=== PATIENT | female | born 1950 | race Caucasian/White ===

== ENCOUNTER → 2020-07-17 | Outpatient (CLI) | payer OTHER ==
[~2020-07-17] MED LIST: AMIT50 PO; DIPATR PO; FLUSAL1005 IH; HYDACE5 PO; OXYC15ER PO; OXYC20ER PO; PROM25 PO; SENNP PO; TRAM50 PO
[2020-07-17 13:19] LABS: BASOPHILS ABSOLUTE AUTO 0.05 K/mm3 (0.00-0.23); BASOPHILS PERCENT AUTO 0 % (0-2); EOSINOPHILS ABSOLUTE AUTO 0.28 K/mm3 (0.00-0.68); EOSINOPHILS PERCENT AUTO 2 % (0-6); Hematocrit 41.7 % (33.0-51.0); Hemoglobin 13.9 g/dL (11.5-16.0); IMMATURE GRAN ABSOLUTE AUTO 0.04 K/mm3 (0.00-0.10); IMMATURE GRAN PERCENT AUTO 0 % (0-1); LYMPHOCYTES ABSOLUTE AUTO 1.39 K/mm3 (0.84-5.20); LYMPHOCYTES PERCENT AUTO 12 % (21-46); MONOCYTES ABSOLUTE AUTO 0.84 K/mm3 (0.16-1.47); MONOCYTES PERCENT AUTO 7 % (4-13); Mean Corpuscular HGB 28.5 pg (26.0-34.0); Mean Corpuscular HGB Conc 33.3 g/dL (31.5-36.5); Mean Corpuscular Volume 86 fL (80-100); NEUTROPHILS ABSOLUTE AUTO 8.97 K/mm3 (1.96-9.15); NEUTROPHILS PERCENT AUTO 78 % (41-73); Platelet Count 194 K/mm3 (150-400); RDW Coefficient Variation 14.1 % (11.7-14.2); RDW Standard Deviation 43.8 fL (35.1-46.3); Red Blood Cell Count 4.87 M/mm3 (3.80-5.20); White Blood Cell Count 11.57 K/mm3 (4.00-11.30)
[2020-07-17 13:29] LABS: Anion Gap 6 mmol/L (6-16); Blood Urea Nitrogen 9 mg/dL (8-24); Bun/Creatinine Ratio 11.1 (12.0-20.0); CO2, Blood 30 mmol/L (21-32); Calcium, Blood 9.2 mg/dL (8.5-10.1); Chloride, Blood 99 mmol/L (98-108); Creatinine, Blood 0.81 mg/dL (0.40-1.00); Glomerular Filtration Rate >60 (60-); Glucose, Blood 102 mg/dL (70-99); Potassium, Blood 4.2 mmol/L (3.5-5.5); Sodium, Blood 135 mmol/L (136-145)
[2020-07-17 13:30] LABS: Troponin I <0.017 ng/mL (0.000-0.040)
== END | disposition home or self-care (01) ==
LOC: LAB EV 13:12 → LAB SHORT 13:12
PROVIDERS: Physician Assistant Surgical
DX: R06.09 Other forms of dyspnea (principal)
CPT/HCPCS: 80048; 83880; 84484; 85025

== ENCOUNTER 2020-11-14 15:56 | Emergency (ER) | payer OTHER, SELFPAY ==
[~2020-11-14] VITALS: Ht 160 cm; Wt 79.4 kg
[2020-11-14] MEDS ORDERED: MORP15ER (16:33)
[2020-11-14 16:41] LABS: BASOPHILS ABSOLUTE AUTO 0.07 K/mm3 (0.00-0.23); BASOPHILS PERCENT AUTO 0 % (0-2); EOSINOPHILS PERCENT AUTO 1 % (0-6); Hematocrit 46.4 % (33.0-51.0); Hemoglobin 14.9 g/dL (11.5-16.0); IMMATURE GRAN ABSOLUTE AUTO 0.09 K/mm3 (0.00-0.10); IMMATURE GRAN PERCENT AUTO 1 % (0-1); LYMPHOCYTES ABSOLUTE AUTO 1.48 K/mm3 (0.84-5.20); LYMPHOCYTES PERCENT AUTO 9 % (21-46); MONOCYTES ABSOLUTE AUTO 0.69 K/mm3 (0.16-1.47); MONOCYTES PERCENT AUTO 4 % (4-13); Mean Corpuscular HGB 27.7 pg (26.0-34.0); Mean Corpuscular HGB Conc 32.1 g/dL (31.5-36.5); Mean Corpuscular Volume 86 fL (80-100); Mean Platelet Volume 11.2 fL (9.1-12.4); NEUTROPHILS ABSOLUTE AUTO 13.71 K/mm3 (1.96-9.15); NEUTROPHILS PERCENT AUTO 85 % (41-73); Platelet Count 224 K/mm3 (150-400); RDW Coefficient Variation 13.4 % (11.7-14.2); RDW Standard Deviation 42.7 fL (35.1-46.3); Red Blood Cell Count 5.37 M/mm3 (3.80-5.20); White Blood Cell Count 16.14 K/mm3 (4.00-11.30)
[2020-11-14 17:07] LABS: Alanine Aminotransfer (ALT/SGP 50 U/L (12-78); Albumin, Blood 3.8 g/dL (3.4-5.0); Albumin/Globulin Ratio 0.9 (0.8-1.8); Alk Phos 143 U/L (50-136); Anion Gap 6 mmol/L (6-16); Aspartate Aminotrans (AST/SGOT 36 U/L (12-37); Bilirubin, Total 0.9 mg/dL (0.1-1.0); Blood Urea Nitrogen 8 mg/dL (8-24); Bun/Creatinine Ratio 11.6 (12.0-20.0); CO2, Blood 29 mmol/L (21-32); Calcium, Blood 9.3 mg/dL (8.5-10.1); Chloride, Blood 101 mmol/L (98-108); Creatinine, Blood 0.69 mg/dL (0.40-1.00); Globulin, Blood 4.3 g/dL (2.2-4.0); Glomerular Filtration Rate >60 (60-); Glucose, Blood 129 mg/dL (70-99); Potassium, Blood 3.9 mmol/L (3.5-5.5); Sodium, Blood 136 mmol/L (136-145); Total Protein, Blood 8.1 g/dL (6.4-8.2); Troponin I <0.015 ng/mL (0.000-0.040)
[2020-11-14] MEDS ORDERED: Zithromax250 MG PO (17:25)
== END 2020-11-14 17:33 | disposition home or self-care (01) ==
LOC: ER 15:56
PROVIDERS: Physician Assistant
DX: B34.9 Viral infection, unspecified (principal); J44.9 Chronic obstructive pulmonary disease, unspecified; Z79.899 Other long term (current) drug therapy; Z20.822 Contact with and (suspected) exposure to COVID-19
CPT/HCPCS: 36415; 71045; 80053; 84484; 85025; 93005; 93010; 94640; 99285-25; A9270

== ENCOUNTER 2022-02-06 16:52 | Emergency (ER) | payer OTHER ==
[~2022-02-06] VITALS: Ht 162.6 cm; Wt 78.9 kg
[~2022-02-06 16:52] MED LIST changes: +MORP15ER; +Zithromax250 MG PO
[2022-02-06 17:48] LABS: BASOPHILS ABSOLUTE AUTO 0.06 K/mm3 (0.00-0.23); BASOPHILS PERCENT AUTO 1 % (0-2); EOSINOPHILS PERCENT AUTO 4 % (0-6); Hematocrit 41.5 % (33.0-51.0); Hemoglobin 13.4 g/dL (11.5-16.0); IMMATURE GRAN ABSOLUTE AUTO 0.04 K/mm3 (0.00-0.10); IMMATURE GRAN PERCENT AUTO 0 % (0-1); LYMPHOCYTES PERCENT AUTO 19 % (21-46); MONOCYTES ABSOLUTE AUTO 0.58 K/mm3 (0.16-1.47); MONOCYTES PERCENT AUTO 6 % (4-13); Mean Corpuscular HGB Conc 32.3 g/dL (31.5-36.5); Mean Corpuscular Volume 87 fL (80-100); Mean Platelet Volume 10.3 fL (9.1-12.4); NEUTROPHILS ABSOLUTE AUTO 6.86 K/mm3 (1.96-9.15); NEUTROPHILS PERCENT AUTO 70 % (41-73); Platelet Count 276 K/mm3 (150-400); RDW Coefficient Variation 13.8 % (11.7-14.2); RDW Standard Deviation 44.2 fL (35.1-46.3); Red Blood Cell Count 4.78 M/mm3 (3.80-5.20); White Blood Cell Count 9.74 K/mm3 (4.00-11.30)
[2022-02-06 18:05] LABS: Alanine Aminotransfer (ALT/SGP 28 U/L (12-78); Albumin, Blood 3.3 g/dL (3.4-5.0); Albumin/Globulin Ratio 0.8 (0.8-1.8); Alk Phos 123 U/L (50-136); Anion Gap 4 mmol/L (6-16); Aspartate Aminotrans (AST/SGOT 22 U/L (12-37); Bilirubin, Total 0.4 mg/dL (0.1-1.0); Blood Urea Nitrogen 9 mg/dL (8-24); Bun/Creatinine Ratio 12.2 (12.0-20.0); CO2, Blood 31 mmol/L (21-32); Calcium, Blood 8.8 mg/dL (8.5-10.1); Chloride, Blood 100 mmol/L (98-108); Creatinine, Blood 0.74 mg/dL (0.40-1.00); Globulin, Blood 4.2 g/dL (2.2-4.0); Glomerular Filtration Rate >60 (60-); Glucose, Blood 137 mg/dL (70-99); Potassium, Blood 4.1 mmol/L (3.5-5.5); Sodium, Blood 135 mmol/L (136-145); Total Protein, Blood 7.5 g/dL (6.4-8.2)
[2022-02-06] MEDS ORDERED: Benadryl Itch28.3 G1 TOP (18:16)
[2022-02-06] MEDS ORDERED: PERM5TC TOP (18:16)
[2022-02-06] MEDS ORDERED: CEPH500 PO (18:17)
== END 2022-02-06 18:37 | disposition home or self-care (01) ==
LOC: ER 16:52
PROVIDERS: Physician Assistant
DX: L30.8 Other specified dermatitis (principal); L03.116 Cellulitis of left lower limb; J44.9 Chronic obstructive pulmonary disease, unspecified; Z79.899 Other long term (current) drug therapy
CPT/HCPCS: 80053; 85025; A9270; J1885

== ENCOUNTER → 2022-04-04 | Outpatient (CLI) | payer OTHER ==
[~2022-04-04] MED LIST changes: +Benadryl Itch28.3 G1 TOP; +CEPH500 PO; +PERM5TC TOP
== END | disposition home or self-care (01) ==
LOC: LAB 15:20 → LAB SHORT 15:20
DX: L03.119 Cellulitis of unspecified part of limb (principal)
CPT/HCPCS: 87070; 87077; 87147; 87186; 87205

== ENCOUNTER 2022-12-22 05:01 | Emergency (ER) | payer OTHER ==
[~2022-12-22] VITALS: Ht 162.6 cm; Wt 74.8 kg
[2022-12-22 05:20] LABS: BASOPHILS ABSOLUTE AUTO 0.05 K/mm3 (0.00-0.23); BASOPHILS PERCENT AUTO 0 % (0-2); EOSINOPHILS ABSOLUTE AUTO 0.01 K/mm3 (0.00-0.68); EOSINOPHILS PERCENT AUTO 0 % (0-6); Hematocrit 43.9 % (33.0-51.0); Hemoglobin 14.2 g/dL (11.5-16.0); IMMATURE GRAN ABSOLUTE AUTO 0.07 K/mm3 (0.00-0.10); IMMATURE GRAN PERCENT AUTO 1 % (0-1); LYMPHOCYTES ABSOLUTE AUTO 1.15 K/mm3 (0.84-5.20); LYMPHOCYTES PERCENT AUTO 8 % (21-46); MONOCYTES ABSOLUTE AUTO 1.32 K/mm3 (0.16-1.47); MONOCYTES PERCENT AUTO 9 % (4-13); Mean Corpuscular HGB 27.2 pg (26.0-34.0); Mean Corpuscular HGB Conc 32.3 g/dL (31.5-36.5); Mean Corpuscular Volume 84 fL (80-100); NEUTROPHILS ABSOLUTE AUTO 12.62 K/mm3 (1.96-9.15); NEUTROPHILS PERCENT AUTO 83 % (41-73); Platelet Count 294 K/mm3 (150-400); RDW Coefficient Variation 14.9 % (11.7-14.2); RDW Standard Deviation 45.2 fL (35.1-46.3); Red Blood Cell Count 5.22 M/mm3 (3.80-5.20); White Blood Cell Count 15.22 K/mm3 (4.00-11.30)
[2022-12-22] MEDS ORDERED: Prinivil10 MG PO (05:26)
[2022-12-22] MEDS ORDERED: MS CONTIN3010 PO (05:26)
[2022-12-22] MEDS ORDERED: Ventolin/Prove6.7 GM (05:27)
[2022-12-22 05:40] LABS: Albumin, Blood 3.3 g/dL (3.4-5.0); Albumin/Globulin Ratio 0.8 (0.8-1.8); Bilirubin, Total 0.6 mg/dL (0.1-1.0); Bun/Creatinine Ratio 23.3 (12.0-20.0); Calcium, Blood 8.9 mg/dL (8.5-10.1); Creatinine, Blood 0.81 mg/dL (0.40-1.00); Globulin, Blood 4.4 g/dL (2.2-4.0); Potassium, Blood 4.4 mmol/L (3.5-5.5); Total Protein, Blood 7.7 g/dL (6.4-8.2)
[2022-12-22] MEDS ORDERED: Prednisone20 MG PO (05:52)
[2022-12-22] MEDS ORDERED: ALBU90OI INH (05:52)
[2022-12-22] MEDS ORDERED: Zithromax250 MG PO (05:52)
[2022-12-22 06:21] LABS: Influenza A, PCR NEGATIVE (NEGATIVE); Influenza B, PCR NEGATIVE (NEGATIVE); Resp Syncytial Virus, PCR NEGATIVE (NEGATIVE); SARS-Cov-2 (COVID-19) PCR, MMC NEGATIVE (NEGATIVE)
== END 2022-12-22 06:52 | disposition home or self-care (01) ==
LOC: ER 05:01
PROVIDERS: Emergency Medicine
DX: J44.1 Chronic obstructive pulmonary disease with (acute) exacerbation (principal); Z79.899 Other long term (current) drug therapy; Z99.81 Dependence on supplemental oxygen
CPT/HCPCS: 0241U; 71045; 80053; 83605; 83880; 84145; 84484; 85025; 93005; 93010; 94640; 94664; A9270; J1885; J2930; J7030

== ENCOUNTER 2023-01-16 10:37 | Inpatient (IN) | payer OTHER ==
[~2023-01-16] VITALS: Ht 162.6 cm; Wt 72.3 kg
[~2023-01-16 10:37] MED LIST changes: +ALBU90OI INH; +MS CONTIN3010 PO; +Prednisone20 MG PO; +Prinivil10 MG PO; +Ventolin/Prove6.7 GM
[2023-01-16 11:55] LABS: BASOPHILS ABSOLUTE AUTO 0.06 K/mm3 (0.00-0.23); BASOPHILS PERCENT AUTO 1 % (0-2); EOSINOPHILS ABSOLUTE AUTO 0.01 K/mm3 (0.00-0.68); EOSINOPHILS PERCENT AUTO 0 % (0-6); Hematocrit 39.5 % (33.0-51.0); Hemoglobin 12.3 g/dL (11.5-16.0); IMMATURE GRAN ABSOLUTE AUTO 0.31 K/mm3 (0.00-0.10); IMMATURE GRAN PERCENT AUTO 3 % (0-1); LYMPHOCYTES ABSOLUTE AUTO 1.27 K/mm3 (0.84-5.20); LYMPHOCYTES PERCENT AUTO 11 % (21-46); MONOCYTES ABSOLUTE AUTO 0.71 K/mm3 (0.16-1.47); MONOCYTES PERCENT AUTO 6 % (4-13); Mean Corpuscular HGB Conc 31.1 g/dL (31.5-36.5); Mean Corpuscular Volume 87 fL (80-100); Mean Platelet Volume 10.6 fL (9.1-12.4); NEUTROPHILS ABSOLUTE AUTO 8.91 K/mm3 (1.96-9.15); NEUTROPHILS PERCENT AUTO 79 % (41-73); Platelet Count 416 K/mm3 (150-400); RDW Coefficient Variation 15.4 % (11.7-14.2); RDW Standard Deviation 49.2 fL (35.1-46.3); Red Blood Cell Count 4.55 M/mm3 (3.80-5.20); White Blood Cell Count 11.27 K/mm3 (4.00-11.30)
[2023-01-16 12:01] LABS: Albumin, Blood 2.6 g/dL (3.4-5.0); Albumin/Globulin Ratio 0.6 (0.8-1.8); Bilirubin, Total 0.7 mg/dL (0.1-1.0); Bun/Creatinine Ratio 6.7 (12.0-20.0); Calcium, Blood 8.2 mg/dL (8.5-10.1); Creatinine, Blood 4.3 mg/dL (0.40-1.00); Globulin, Blood 4.4 g/dL (2.2-4.0); Potassium, Blood 4.4 mmol/L (3.5-5.5)
[2023-01-16 12:20] LABS: Base Excess Venous 1.3 mmol/L; Bicarbonate Venous 23.8 mmol/L (24.0-30.0); PCO2 Venous 78.5 mmHg (38-42); pH Blood Venous 7.19 (7.34-7.37)
[2023-01-16 12:20] LABS: Creatine Kinase MB 13.6 ng/mL (0.0-3.6); Creatine Kinase MB Index 2.8 (0.0-4.0)
[2023-01-16 14:38] LABS: U Amphetamine Screen Not Detected; U Barbituate Screen Not Detected; U Benzodiazapine Screen Not Detected; U Buprenorphine Screen Not Detected; U Cannabinoids Screen Not Detected; U Cocaine Screen Not Detected; U Methadone Screen Not Detected; U Methamphetamine Screen Not Detected; U Opiates Screen DETECTED; U Oxycodone Screen Not Detected; U Phencyclidine Screen Not Detected; U Propoxyphene Screen Not Detected
[2023-01-16 15:05] LABS: International Normalized Ratio 1.26; Prothrombin Time Results 13.1 Sec (9.7-11.5)
[2023-01-16] MEDS ORDERED: ALBU8HFA2 INH (15:42)
[2023-01-16] MEDS ORDERED: AMITRIPTYLINE150 M1 PO (15:43)
[2023-01-16] MEDS ORDERED: Advair Diskus 250-50 INH (15:44)
[2023-01-16 17:25] LABS: Base Excess Venous -0.4 mmol/L; Bicarbonate Venous 23.3 mmol/L (24.0-30.0); PCO2 Venous 56.3 mmHg (38-42); pH Blood Venous 7.28 (7.34-7.37)
[2023-01-16 17:42] VITALS: BP 103/67
[2023-01-16 19:11] LABS: Magnesium, Blood 2.4 mg/dL (1.6-2.4)
[2023-01-16 19:39] LABS: Albumin, Blood 2.6 g/dL (3.4-5.0); Albumin/Globulin Ratio 0.6 (0.8-1.8); Bilirubin, Total 0.4 mg/dL (0.1-1.0); Bun/Creatinine Ratio 8.2 (12.0-20.0); Calcium, Blood 8.1 mg/dL (8.5-10.1); Creatinine, Blood 3.64 mg/dL (0.40-1.00); Globulin, Blood 4.5 g/dL (2.2-4.0); Phosphorus, Blood 6.6 mg/dL (2.5-4.9); Potassium, Blood 3.9 mmol/L (3.5-5.5); Total Protein, Blood 7.1 g/dL (6.4-8.2)
[2023-01-16 20:00] VITALS: BP 102/67
[2023-01-16 21:38] LABS: Source, Urine Straight Cath
[2023-01-16 21:48] LABS: Bilirubin, Urine Neg (Neg); Blood, Urine 5+ (Neg); Glucose Qualitative, Urine Neg (Neg); Ketones, Urine Neg (Neg); Leukocyte Esterase, Urine 2+ (Neg); Nitrite, Urine Neg (Neg); Protein, Urine 2+ (Neg); Specific Gravity, Urine 1.025 (1.003-1.022); Urobilinogen, Urine 1+ (Normal)
[2023-01-16 21:58] LABS: Appearance, Urine Turbid (Clear); Color, Urine Yellow (P-Yellow)
[2023-01-16 22:02] LABS: Bacteria Many /hpf; Hyaline Casts 0-2 /lpf (0-2); Squamous Epithelial Cells Mod /hpf (Few); White Blood Cells, Urine 25-50 /hpf (0-5)
[2023-01-17] VITALS (9 sets, daily range): BP systolic 94–133; BP diastolic 58–88
[2023-01-17 04:34] LABS: Hematocrit 35.7 % (33.0-51.0); Mean Corpuscular HGB 26.8 pg (26.0-34.0); Mean Corpuscular HGB Conc 30.8 g/dL (31.5-36.5); Mean Corpuscular Volume 87 fL (80-100); NRBC ABSOLUTE 0.02 K/mm3 (0.00-0.02); NRBC Auto 0.3 /100 WBC (0.0-0.2); Platelet Count 260 K/mm3 (150-400); RDW Coefficient Variation 15.2 % (11.7-14.2); RDW Standard Deviation 48.8 fL (35.1-46.3); Red Blood Cell Count 4.11 M/mm3 (3.80-5.20); White Blood Cell Count 7.59 K/mm3 (4.00-11.30)
[2023-01-17 05:01] LABS: International Normalized Ratio 1.22; Prothrombin Time Results 12.7 Sec (9.7-11.5)
[2023-01-17 05:02] LABS: Magnesium, Blood 2.3 mg/dL (1.6-2.4)
[2023-01-17 05:15] LABS: Thyroid Stimulating Hormone 0.494 uIU/mL (0.360-4.800); Uric Acid, Blood 8.9 mg/dL (2.6-6.0)
[2023-01-17 05:16] LABS: BAND PERCENT MAN 1 % (0-8); BASOPHILS PERCENT MAN 0 % (0-2); EOSINOPHILS ABSOLUTE MAN 0.15 K/mm3 (0.00-0.68); EOSINOPHILS PERCENT MAN 2 % (0-6); LYMPHOCYTES ABSOLUTE MAN 1.36 K/mm3 (0.84-5.20); LYMPHOCYTES PERCENT MAN 18 % (21-46); METAMYELOCYTE ABSOLUTE MAN 0.15 K/mm3 (0.00-0.00); METAMYELOCYTE PERCENT MAN 2 % (0-0); MONOCYTES ABSOLUTE MAN 0.22 K/mm3 (0.16-1.47); MONOCYTES PERCENT MAN 3 % (4-13); MYELOCYTE ABSOLUTE MAN 0.22 K/mm3 (0.00-0.00); MYELOCYTE PERCENT MAN 3 % (0-0); NEUTROPHILS ABSOLUTE MAN 5.46 K/mm3 (1.96-9.15); SEG NEUTROPHILS PERCENT MAN 71 % (41-73); TOTAL CELLS COUNTED 100
[2023-01-17 05:34] LABS: Albumin, Blood 2.1 g/dL (3.4-5.0); Albumin/Globulin Ratio 0.6 (0.8-1.8); Bilirubin, Total 0.3 mg/dL (0.1-1.0); Bun/Creatinine Ratio 11.8 (12.0-20.0); Calcium, Blood 7.7 mg/dL (8.5-10.1); Creatinine, Blood 2.21 mg/dL (0.40-1.00); Globulin, Blood 3.8 g/dL (2.2-4.0); Phosphorus, Blood 4.1 mg/dL (2.5-4.9); Potassium, Blood 3.7 mmol/L (3.5-5.5); Total Protein, Blood 5.9 g/dL (6.4-8.2)
--- NOTE | 2023-01-17 06:41 | NUR ---
SHIFT SUMMARY PT MORE ALERT AND MENTATION IS IMPROVING SOME. PT ORIENTED TO PERSON, PLACE, AND ABLE TO RECALL SOME DETAILS OF SITUATION THAT BROUGHT HER TO HOSPITAL. PT UNABLE TO RECALL YEAR OR DATE. VSS; ALTHOUGH SBP SOFT HIGH 90'S - 100'S. PT REMAINS ON 5-6 L HHF NC. PT DENIES SOB, CP OR PRESSURE. PT DENIES GENERAL PAIN. DENIES N/V, DIZZINESS OR LIGHTHEADNESS. PT RECEIVED NS FLUID BOLUS X1 AND NS INFUSION AT 75 MLS; STILL CURRENTLY INFUSING. PT UNABLE TO VOID AT BEGINNING OF SHIFT, PT BLADDER SCANNED; SHOWED 419 MLS. PT FINALLY ABLE TO VOID AND SINCE HAS VOIDED X2. URINE DARK IN COLOR AND MILD ODOR NOTED. NO BM THIS SHIFT. PT USING BSC W/2 PERSON ASSIST, PT WEAK AND NEEDS FREQUENT VERBAL CUES. CALL LIGHT IN REACH. WILL UPDATE ONCOMING RN.
[2023-01-17] MEDS ORDERED: ONDA8 PO (08:36)
--- NOTE | 2023-01-17 08:38 | NUR ---
UPDATE PT'S SON, OLIVERIO, CALLED FOR UPDATE THIS AM. PT'S SON ABLE TO PROVIDE REMAINDER OF PT'S HOME MEDICATION DOSES TO COMPLETE HOME MED RECONCILLIATION. OLIVERIO GIVEN PHONE NUMBER TO PT'S ROOM PHONE. PT CURRENTLY SPEAKING TO SON ON PHONE. CALL LIGHT IN REACH.
[2023-01-17 15:12] LABS: HIV AB/P24 AG SCREEN Non Reactive (Non Reactive)
[2023-01-17 16:23] LABS: Source, Urine Foley catheter
[2023-01-17 16:48] LABS: Appearance, Urine Clear (Clear); Bilirubin, Urine Neg (Neg); Blood, Urine 4+ (Neg); Color, Urine Yellow (P-Yellow); Glucose Qualitative, Urine Neg (Neg); Ketones, Urine Neg (Neg); Leukocyte Esterase, Urine Neg (Neg); Nitrite, Urine Neg (Neg); Protein, Urine 2+ (Neg); Specific Gravity, Urine 1.015 (1.003-1.022); Urobilinogen, Urine NORM (Normal)
[2023-01-17 17:22] LABS: Bacteria Few /hpf; Hyaline Casts 0-2 /lpf (0-2); Squamous Epithelial Cells Few /hpf (Few)
[2023-01-17 17:23] LABS: Granular Casts 0-2 /lpf (0)
--- NOTE | 2023-01-17 18:02 | NUR ---
SHIFT SUMMARY PT GENERALLY ALERT AND ORIENTED TO PERSON, PLACE, AND GENERAL SITUATION. CONFUSED AT TIMES REGARDING DETAILS OF CONDITION. SPO2 >95% ON 4L HHF. TELEMETRY SHOWS NORMAL SINUS. HR MOSTLY 90-100'S AND SYSTOLIC BP >100. PT SHOWERED THIS AM WITH 3 PERSON ASSIST. PHYSICAL THERAPY TO BEDSIDE TO EVALUATE PT. PT STATED SHE NEEDED TO VOID THIS PM. PT UP TO BEDSIDE COMMODE TO VOID. PT STATED UNABLE TO VOID. BLADDER SCAN SHOWED 906 ML URINARY RETENTION. CALL PLACED TO MD HAM. MD HAM WITH ORDERS TO PLACE JUAREZ. JUAREZ PLACED AT 1600. ALTERED MENTATION OBSERVED AT 1415. PT WAS DIFFICULT TO AROUSE VERBALLY AND WAS LETHARGIC. RESPONDED TO PHYSICAL TOUCH BUT QUICKLY FELL BACK ASLEEP. UNABLE TO FOLLOW SOME COMMANDS. BIPAP PLACED AND WORN 20 MIN. BIPAP REMOVED. PATIENT WAS ALERT AND ORIENTED WITH OCCASIONAL CONFUSION. PT IN BED EATING DINNER. CALL LIGHT WITHIN REACH.
[2023-01-18 01:07] LABS: HBSAG SCREEN Negative (Negative); HCV AB Non Reactive (Non Reactive); HEP A AB, IGM Negative (Negative); HEP B CORE AB, IGM Negative (Negative)
[2023-01-18 03:09] VITALS: BP 150/94
[2023-01-18 05:03] LABS: Hematocrit 37.8 % (33.0-51.0); Mean Corpuscular HGB 27.1 pg (26.0-34.0); Mean Corpuscular HGB Conc 31.7 g/dL (31.5-36.5); Mean Corpuscular Volume 85 fL (80-100); Platelet Count 275 K/mm3 (150-400); RDW Standard Deviation 46.6 fL (35.1-46.3); Red Blood Cell Count 4.43 M/mm3 (3.80-5.20); White Blood Cell Count 7.38 K/mm3 (4.00-11.30)
[2023-01-18 05:13] LABS: International Normalized Ratio 1.27; Prothrombin Time Results 13.2 Sec (9.7-11.5)
[2023-01-18 05:16] LABS: Albumin/Globulin Ratio 0.5 (0.8-1.8); Bilirubin, Total 0.3 mg/dL (0.1-1.0); Bun/Creatinine Ratio 16.7 (12.0-20.0); Calcium, Blood 8.2 mg/dL (8.5-10.1); Creatinine, Blood 0.66 mg/dL (0.40-1.00); Globulin, Blood 3.8 g/dL (2.2-4.0); Potassium, Blood 3.6 mmol/L (3.5-5.5); Total Protein, Blood 5.8 g/dL (6.4-8.2)
--- NOTE | 2023-01-18 05:52 | NUR ---
END OF SHIFT PT CONFUSED OVERNIGHT, ATTEMPTED TO GET OOB, BED ALARM ON, IV RESITED AND NS INFUSING, GOOD UO IN F/C, B/P MUCH IMPROVED WITH MIDODRINE
[2023-01-18 06:39] LABS: BAND PERCENT MAN 4 % (0-8); BASOPHILS ABSOLUTE MAN 0.07 K/mm3 (0.00-0.23); BASOPHILS PERCENT MAN 1 % (0-2); EOSINOPHILS ABSOLUTE MAN 0.07 K/mm3 (0.00-0.68); EOSINOPHILS PERCENT MAN 1 % (0-6); LYMPHOCYTES ABSOLUTE MAN 0.44 K/mm3 (0.84-5.20); LYMPHOCYTES PERCENT MAN 6 % (21-46); METAMYELOCYTE ABSOLUTE MAN 0.07 K/mm3 (0.00-0.00); METAMYELOCYTE PERCENT MAN 1 % (0-0); MONOCYTES ABSOLUTE MAN 0.29 K/mm3 (0.16-1.47); MONOCYTES PERCENT MAN 4 % (4-13); MYELOCYTE ABSOLUTE MAN 0.51 K/mm3 (0.00-0.00); MYELOCYTE PERCENT MAN 7 % (0-0); SEG NEUTROPHILS PERCENT MAN 76 % (41-73); TOTAL CELLS COUNTED 100
[2023-01-18 07:37] VITALS: BP 146/75
--- NOTE | 2023-01-18 10:00 | NUR ---
UPDATE / CALL TO MD PT A&O TO SELF & PLACE. PT UNABLE TO STATE DATE. PT REPEATING "UM" & "OH TAMI" WHEN TRYING TO RECALL MONTH OR YEAR. PT YELLING "DR PRICE!" MULTIPLE TIMES. WHEN ASKING PT WHAT PT NEEDS, PT STATING "DR ALBERT PRICE & MY TOGETHER." PT CONFUSED & STATING THINGS THAT DO NOT MAKE SENSE. LATER PT TEARFUL, UPSET THAT MD PRICE IS NOT IN THE RM. PT ASSURED MD PRICE HAS ROUNDED ON HER & WILL ROUND AGAIN TOMORROW. PT STATING "THAT'S NOT ENOUGH. HE SHOULD BE HERE ALL THE TIME." TIME SPENT W/ PT. PT VSS. SPO2 > 92% ON 4L NC. CALL TO MD NORTON TO REPORT MONITOR SHOWING ST, HR 100-150s W/ PVCs & RUNS OF SVT. MD HAGAN WILL EVALUATE & PUT IN ORDERS NEEDED.
[2023-01-18 11:12] VITALS: BP 156/86
[2023-01-18 16:37] VITALS: BP 145/94
--- NOTE | 2023-01-18 18:48 | NUR ---
END OF SHIFT PT CONTINUES TO BE CONFUSED, A&O TO SELF, PLACE & FAMILY ONLY. PT VSS. SPO2 > 92% ON 4L NC. MONITOR CONTINUES TO SHOW SR-ST, HR 90s-120s W/ BRIEF INCREASES TO 130s-150s. MD NORTON W/ INSTRUCTION TO NOTIFY MD IF HR SUSTATINS > 130s. JUAREZ CATH PATENT & DRAINING YELLOW URINE. JUAREZ IN PLACE D/T RETENTION. JUAREZ ORDER VERIFIED W/ .
[2023-01-18 19:05] LABS: Magnesium, Blood 1.9 mg/dL (1.6-2.4)
[2023-01-18 20:35] LABS: Albumin, Blood 2.5 g/dL (3.4-5.0); Albumin/Globulin Ratio 0.5 (0.8-1.8); Bilirubin, Total 0.3 mg/dL (0.1-1.0); Calcium, Blood 8.4 mg/dL (8.5-10.1); Creatinine, Blood 0.54 mg/dL (0.40-1.00); Globulin, Blood 4.6 g/dL (2.2-4.0); Phosphorus, Blood 1.2 mg/dL (2.5-4.9); Potassium, Blood 3.6 mmol/L (3.5-5.5); Total Protein, Blood 7.1 g/dL (6.4-8.2)
[2023-01-18 21:29] VITALS: BP 163/93
[2023-01-19] VITALS (11 sets, daily range): BP systolic 128–177; BP diastolic 70–120
[2023-01-19 06:13] LABS: Hematocrit 36.5 % (33.0-51.0); Hemoglobin 11.5 g/dL (11.5-16.0)
--- NOTE | 2023-01-19 06:22 | NUR ---
PT CONFUSED AND AGITATED OVERNIGHT, OOB ATTEMPTS BUT BED ALARM WAS ON, VSS, HR BELOW 100 UNTIL UP TO CHAIR THIS AM, OTERWISE PT TREATED FOR PAIN ONE TIME AND NAUSEA ONE TIME
[2023-01-19 06:54] LABS: Albumin, Blood 2.1 g/dL (3.4-5.0); Anion Gap 0 mmol/L (6-16); Blood Urea Nitrogen 7 mg/dL (8-24); Bun/Creatinine Ratio 11.8 (12.0-20.0); CO2, Blood 34 mmol/L (21-32); Calcium, Blood 8.1 mg/dL (8.5-10.1); Chloride, Blood 103 mmol/L (98-108); Creatinine, Blood 0.59 mg/dL (0.40-1.00); Glomerular Filtration Rate 96 (60-); Glucose, Blood 93 mg/dL (70-99); Magnesium, Blood 1.8 mg/dL (1.6-2.4); Phosphorus, Blood 1.1 mg/dL (2.5-4.9); Potassium, Blood 3.5 mmol/L (3.5-5.5); Sodium, Blood 137 mmol/L (136-145)
[2023-01-19 07:18] LABS: International Normalized Ratio 1.19; Prothrombin Time Results 12.4 Sec (9.7-11.5)
--- NOTE | 2023-01-19 18:50 | NUR ---
END OF SHIFT PT MADE MEDICAL WITH TELE STATUS THIS SHIFT. VSS. SPO2 > 92%. PT MONITOR SHOWING SINUS TACH HR 110's-120's WITH MULTIPLE PAC's AND BRIEF HR INCRAESES TO 130's-150's. PT A&O TO PERSON AND PLACE, DIORIENTED TO TIME AND SITUATION. PT STATING "I'M GOING HOME" MULTIPLE TIMES THROUGHOUT SHIFT. PT ENCOURAGED TO STAY. PT REMAINS IN ROOM AT THIS TIME.
[2023-01-20] VITALS (7 sets, daily range): BP systolic 112–160; BP diastolic 82–111
[2023-01-20 03:39] LABS: Hemoglobin 13.2 g/dL (11.5-16.0)
[2023-01-20 04:04] LABS: Albumin, Blood 2.2 g/dL (3.4-5.0); Anion Gap 1 mmol/L (6-16); Blood Urea Nitrogen 5 mg/dL (8-24); Bun/Creatinine Ratio 9.4 (12.0-20.0); CO2, Blood 39 mmol/L (21-32); Calcium, Blood 8.3 mg/dL (8.5-10.1); Chloride, Blood 95 mmol/L (98-108); Creatinine, Blood 0.53 mg/dL (0.40-1.00); Glomerular Filtration Rate 99 (60-); Glucose, Blood 100 mg/dL (70-99); Magnesium, Blood 1.5 mg/dL (1.6-2.4); Potassium, Blood 2.6 mmol/L (3.5-5.5); Sodium, Blood 135 mmol/L (136-145)
--- NOTE | 2023-01-20 06:02 | NUR ---
Assumed care of pt at 1900. A/Ox4, was adamant on leaving AMA at beginning of shift and was "just waiting for her son to pick her up", but son never arrived. Patient c/o pain in L arm that is chronic in nature for patient. Normally patient is on 30mg Morphine TID and isn't getting it from us in the hospital. Patient informed this RN that she had taken it a few times herself while being in here, and on 01/18 she "took 2 pills just to get rid of the pain". She then states that she felt bad as she knew she wasn't supposed to be taking her own meds and sent them home, although still unclear. Reinforced that she cannot be doing that and she acknowledged. Patient says mainly wants to leave AMA as she is without her pain medication. Attempted repositioning patient and applying heat with minimal relief. Maintains over 92% on RA while awake, admits to having SANDRA but does not want to use CPAP so she uses 4L NC while asleep. SR/ST on tele with runs of SVT up into 170's. SBP elevated 160-170's as well. Patient reported headache, Hydralazine 10mg did not reduce patients BP. Metoprolol 5mg ordered and reduced both HR and BP into normal ranges. 2+ pitting edema BLE, and 1+ in BUE. Isaac patent and draining to gravity clear/yellow urine. Will report to dayshift RN.
--- NOTE | 2023-01-20 10:28 | NUR ---
CARE ASSUMPTION This RN assumed care at 0700. vital signs stable. tele sr/st with runs of afib 110s-130s. spo2 >90% on room air. patient reports no pain at the start of this RNS shift, and then reported pain in left arm rated at an 8 and medicated per emar. Patient reports no chest pain/pressure. patient reports no shortness of breath. patient is alert and oriented x4. patient neuro is intact. patient stating this morning that she is going to leave today. this rn educated her on potassium and magnesium replacement and that she has evening labs, patient verbalized understanding, but still stating she wants to go home. This RN listened to the patient and used therapeutic communication. Patient lung sounds are dim, and in lower based dim expiratory wheeze. Patient had AM breathing treatment and will reassess lung sounds. Patient abd is active and nontender. Patient skin is clean and dry. patient skinner is patent and draining with gravity, yellow coloration. See shift assessment for further detials. Md Vuan in to see patient this AM and discussed plan of care. Plan of care is up to date. Patient had a shower this AM and performed morning adls. call light is within reach and bed in lowest position
--- NOTE | 2023-01-20 14:33 | NUR ---
UPDATE TO SON -NOEL- This RN called the patients son, noel, to inform him of a room on medical floor for the patient and that the patient will be moving to room 302. This RN spoke with Noel.
--- NOTE | 2023-01-20 15:09 | NUR ---
TRANSFER NOTE/SHIFT SUMMARY Patient neuro remains intact. vital signs stable. No acute changes this shift. patient uses call light appropriately and is able to make needs known. patient is in no distress and has belongings when leaving. this rn gave report to lilly baird on medical floor.
[2023-01-20 17:32] LABS: Magnesium, Blood 1.9 mg/dL (1.6-2.4); Phosphorus, Blood 1.6 mg/dL (2.5-4.9)
--- NOTE | 2023-01-20 17:56 | NUR ---
DR. PRICE CALLED AT THIS TIME WITH 1756 PHOSPHORUS AND MAGNESIUM RESULTS. NEW NEW ORDER.
--- NOTE | 2023-01-20 19:04 | NUR ---
TRANSFER: REPORT RECEIVED FROM SHIP WORKERJENNIFER. PT TO UNIT AT 1540, PT IS A/O, TELE STABLE. HTN NOTED, PT REPORTS PAINFUL, WILL MEDICATE AND RECHECK. CONTINIOUS BI OX IN PLACE. CALL LIGHT IN REACH.
--- NOTE | 2023-01-20 19:06 | NUR ---
SUMMARY: NO CHANGE SINCE TRANSFER. REPORT PASSED TO NOC RN
[2023-01-21 04:50] LABS: Hematocrit 39.6 % (33.0-51.0); Hemoglobin 12.5 g/dL (11.5-16.0)
[2023-01-21 05:07] LABS: Magnesium, Blood 1.9 mg/dL (1.6-2.4)
[2023-01-21 05:19] VITALS: BP 158/142
[2023-01-21 05:22] LABS: Albumin, Blood 2.3 g/dL (3.4-5.0); Anion Gap Unable to Calculate mmol/L (6-16); Blood Urea Nitrogen 6 mg/dL (8-24); Bun/Creatinine Ratio 8.1 (12.0-20.0); CO2, Blood 36 mmol/L (21-32); Calcium, Blood 8.5 mg/dL (8.5-10.1); Chloride, Blood 101 mmol/L (98-108); Creatinine, Blood 0.74 mg/dL (0.40-1.00); Glomerular Filtration Rate 86 (60-); Glucose, Blood 93 mg/dL (70-99); Phosphorus, Blood 2.6 mg/dL (2.5-4.9); Potassium, Blood 3.8 mmol/L (3.5-5.5); Sodium, Blood 136 mmol/L (136-145)
[2023-01-21 07:43] VITALS: BP 147/104
--- NOTE | 2023-01-21 09:00 | NUR ---
pt sitting up on side of the bed, a/ox4, was in room, changed lisinopril to 20 instead of 10mg, lungs are clear, very dim t/o, home o2 dep on 2 liters at hs, gets sob with activity, on r/a durring the day, hrirr, tele in place running afib with controlled rate, no edema noted, ppp+2, cap refill <3 sec, vs stable, afebrile, piv site to lfa, clear and patent, btx4, abd flat soft nontender, voids via skinner cath, will bladder train and remove, skin c/w/d, robb price, may go home this afternoon if can void after skinner removed.
[2023-01-21] MEDS ORDERED: CEFP200 PO (10:58)
[2023-01-21] MEDS ORDERED: ALDACTONE25 MG PO (10:58)
[2023-01-21] MEDS ORDERED: LACT PO ×2 (10:59)
[2023-01-21 11:19] VITALS: BP 164/95
[2023-01-21] MEDS ORDERED: FURO20 PO (11:46)
[2023-01-21] MEDS ORDERED: POTA10T PO (11:47)
--- NOTE | 2023-01-21 12:50 | NUR ---
pt has been discharged with Dr. Koenig approval, bladder training complete, skinner removed intact, and able to void without diff, ivx2 removed intact, new meds faxed to [facility] pharmacy, pt verbalized understanding of discharge instructions, pt left via wheelchair with chief engineer in attendence.
== END 2023-01-21 12:50 | disposition home health service (06) | DRG 682 ==
LOC: ER 10:37 → ERHOLD 15:40 → PCU 15:40 → MEDS 01-20 15:53
PROVIDERS: Family Medicine; Internal Medicine Nephrology; ADMIT Internal Medicine
DX: N17.9 Acute kidney failure, unspecified (principal); G92.8 Other toxic encephalopathy; K72.00 Acute and subacute hepatic failure without coma; J96.21 Acute and chronic respiratory failure with hypoxia; J96.22 Acute and chronic respiratory failure with hypercapnia; F11.20 Opioid dependence, uncomplicated; E87.1 Hypo-osmolality and hyponatremia; E87.29 Other acidosis; N39.0 Urinary tract infection, site not specified; E87.8 Other disorders of electrolyte and fluid balance, not elsewhere classified; E83.39 Other disorders of phosphorus metabolism; E83.42 Hypomagnesemia; B96.20 Unspecified Escherichia coli [E. coli] as the cause of diseases classified elsewhere; E87.6 Hypokalemia; J44.9 Chronic obstructive pulmonary disease, unspecified; E78.5 Hyperlipidemia, unspecified; M10.9 Gout, unspecified; I10 Essential (primary) hypertension; G62.9 Polyneuropathy, unspecified; G47.00 Insomnia, unspecified; G89.4 Chronic pain syndrome; Z87.891 Personal history of nicotine dependence; Z99.81 Dependence on supplemental oxygen; Z98.51 Tubal ligation status; Z98.890 Other specified postprocedural states; Z79.2 Long term (current) use of antibiotics; Z79.51 Long term (current) use of inhaled steroids; Z79.52 Long term (current) use of systemic steroids; Z79.899 Other long term (current) drug therapy
CPT/HCPCS: 36415; 51702; 70450; 71046; 74176; 76705; 76770; 80053; 80069; 80074; 81001; 82140; 82150; 82533; 82550; 82553; 82570; 82803; 82947; 83605; 83690; 83735; 84100; 84132; 84300; 84443; 84540; 84550; 85014; 85018; 85025; 85610; 86015; 86376; 87040; 87077; 87086; 87186; 87389; 93005; 93010; 94640; 94660; 94664; 94762; 97110; 97116; 97162; 97530; 99285-25; A9270; G0480; J0360; J0696; J1644; J3475; J3480; J7030; J7040; J7050; J7060

== ENCOUNTER 2023-02-10 18:43 | Observation (INO) | payer OTHER ==
[~2023-02-10] VITALS: Ht 157.5 cm; Wt 67.9 kg
[~2023-02-10 18:43] MED LIST changes: +ALBU8HFA2 INH; +ALDACTONE25 MG PO; +AMITRIPTYLINE150 M1 PO; +Advair Diskus 250-50 INH; +CEFP200 PO; +FURO20 PO; +LACT PO; +ONDA8 PO; +POTA10T PO
[2023-02-10 19:29] LABS: BASOPHILS ABSOLUTE AUTO 0.03 K/mm3 (0.00-0.23); BASOPHILS PERCENT AUTO 0 % (0-2); EOSINOPHILS ABSOLUTE AUTO 0.29 K/mm3 (0.00-0.68); EOSINOPHILS PERCENT AUTO 3 % (0-6); Hematocrit 42.7 % (33.0-51.0); Hemoglobin 12.9 g/dL (11.5-16.0); IMMATURE GRAN ABSOLUTE AUTO 0.04 K/mm3 (0.00-0.10); IMMATURE GRAN PERCENT AUTO 0 % (0-1); LYMPHOCYTES ABSOLUTE AUTO 1.53 K/mm3 (0.84-5.20); LYMPHOCYTES PERCENT AUTO 14 % (21-46); MONOCYTES ABSOLUTE AUTO 0.85 K/mm3 (0.16-1.47); MONOCYTES PERCENT AUTO 8 % (4-13); Mean Corpuscular HGB 26.8 pg (26.0-34.0); Mean Corpuscular HGB Conc 30.2 g/dL (31.5-36.5); Mean Corpuscular Volume 89 fL (80-100); Mean Platelet Volume 11.4 fL (9.1-12.4); NEUTROPHILS ABSOLUTE AUTO 8.32 K/mm3 (1.96-9.15); NEUTROPHILS PERCENT AUTO 75 % (41-73); Platelet Count 232 K/mm3 (150-400); RDW Coefficient Variation 15.5 % (11.7-14.2); Red Blood Cell Count 4.81 M/mm3 (3.80-5.20); White Blood Cell Count 11.06 K/mm3 (4.00-11.30)
[2023-02-10 19:52] LABS: Albumin, Blood 3.4 g/dL (3.4-5.0); Bilirubin, Total 0.7 mg/dL (0.1-1.0); Bun/Creatinine Ratio 14.9 (12.0-20.0); Creatinine, Blood 2.82 mg/dL (0.40-1.00); Globulin, Blood 3.5 g/dL (2.2-4.0); Potassium, Blood 4.8 mmol/L (3.5-5.5); Total Protein, Blood 6.9 g/dL (6.4-8.2)
[2023-02-10 22:36] LABS: Base Excess Venous 6.1 mmol/L; Bicarbonate Venous 27.9 mmol/L (24.0-30.0); PCO2 Venous 67.7 mmHg (38-42); pH Blood Venous 7.29 (7.34-7.37)
[2023-02-11 00:59] LABS: Source, Urine Clean Catch
[2023-02-11 01:01] LABS: Bilirubin, Urine Neg (Neg); Blood, Urine 2+ (Neg); Glucose Qualitative, Urine Neg (Neg); Ketones, Urine Neg (Neg); Leukocyte Esterase, Urine 1+ (Neg); Nitrite, Urine Neg (Neg); Protein, Urine 2+ (Neg); Specific Gravity, Urine 1.025 (1.003-1.022); Urobilinogen, Urine NORM (Normal)
[2023-02-11 01:02] LABS: Appearance, Urine Hazy (Clear); Color, Urine Yellow (P-Yellow)
[2023-02-11 01:21] LABS: Amorphous Mod (0-Heavy); Bacteria Few /hpf; Red Blood Cells, Urine 0-2 /hpf (0-2); Squamous Epithelial Cells Mod /hpf (Few); Transitional Epithelial Cells Few /hpf (0-Rare)
[2023-02-11 01:39] VITALS: BP 155/85
[2023-02-11 04:22] LABS: Base Excess Venous 2.3 mmol/L; Bicarbonate Venous 25.9 mmol/L (24.0-30.0); pH Blood Venous 7.37 (7.34-7.37)
[2023-02-11 05:11] LABS: BASOPHILS ABSOLUTE AUTO 0.01 K/mm3 (0.00-0.23); BASOPHILS PERCENT AUTO 0 % (0-2); EOSINOPHILS ABSOLUTE AUTO 0.01 K/mm3 (0.00-0.68); EOSINOPHILS PERCENT AUTO 0 % (0-6); Hematocrit 38.6 % (33.0-51.0); Hemoglobin 12.1 g/dL (11.5-16.0); IMMATURE GRAN ABSOLUTE AUTO 0.06 K/mm3 (0.00-0.10); IMMATURE GRAN PERCENT AUTO 1 % (0-1); LYMPHOCYTES ABSOLUTE AUTO 0.33 K/mm3 (0.84-5.20); LYMPHOCYTES PERCENT AUTO 5 % (21-46); MONOCYTES ABSOLUTE AUTO 0.06 K/mm3 (0.16-1.47); MONOCYTES PERCENT AUTO 1 % (4-13); Mean Corpuscular HGB 27.3 pg (26.0-34.0); Mean Corpuscular HGB Conc 31.3 g/dL (31.5-36.5); Mean Corpuscular Volume 87 fL (80-100); Mean Platelet Volume 11.5 fL (9.1-12.4); NEUTROPHILS ABSOLUTE AUTO 6.85 K/mm3 (1.96-9.15); NEUTROPHILS PERCENT AUTO 94 % (41-73); Platelet Count 179 K/mm3 (150-400); RDW Coefficient Variation 15.3 % (11.7-14.2); RDW Standard Deviation 49.2 fL (35.1-46.3); Red Blood Cell Count 4.43 M/mm3 (3.80-5.20); White Blood Cell Count 7.32 K/mm3 (4.00-11.30)
[2023-02-11 05:56] LABS: Albumin, Blood 2.9 g/dL (3.4-5.0); Albumin/Globulin Ratio 0.8 (0.8-1.8); Bilirubin, Total 0.6 mg/dL (0.1-1.0); Bun/Creatinine Ratio 20.3 (12.0-20.0); Calcium, Blood 8.3 mg/dL (8.5-10.1); Creatinine, Blood 1.58 mg/dL (0.40-1.00); Globulin, Blood 3.5 g/dL (2.2-4.0); Potassium, Blood 5.1 mmol/L (3.5-5.5); Total Protein, Blood 6.4 g/dL (6.4-8.2)
--- NOTE | 2023-02-11 06:07 | NUR ---
PT CONFUSED BUT REDIRECTABLE, PULLS AT TELE, OXYGEN AT TIMES. FREQUENT REQUESTS FOR WATER, NPO ORDERED, NS @ 75 MLS/HR. DESATS TO UPPER 70S WITHOUT 2-3 L NC. SKIN TEARS TO BILATERAL HANDS AND WRISTS FROM FALLS AT HOME, NO OTHER SKIN ISSUES.
[2023-02-11 07:12] VITALS: BP 139/88
--- NOTE | 2023-02-11 08:00 | NUR ---
vitals done, call light near, drw
[2023-02-11 15:13] VITALS: BP 149/90
--- NOTE | 2023-02-11 18:49 | NUR ---
NO ACUTE CHANGES TO PATIENT STATUS THIS SHIFT. CONTINUING IV FLUIDS CONTINOUS. IV SOLUMEDROL & IV ABX ADMINSTRED. OXYGEN VIA NC TO MAINTAIN SATS. VITALS STABLE THIS SHIFT. PLAN IS TO CONTINUE SUPPORTIVE CARE, AND MONITOR RESPORTATORY STATUS. PATIENTS IV INFILTRATED, RED AT SITE, ELBOW APPEARS EDEMATOUS. REPLACED IV IN RIGHT WRIST. WILL CONTINUE PLAN OF CARE.
[2023-02-11 19:20] VITALS: BP 157/81
[2023-02-12 03:24] VITALS: BP 136/79
--- NOTE | 2023-02-12 03:48 | NUR ---
ROUTE DRIVER COIN MACHINES SUMMARY VSS. O2 CONTINUES AT 2.5L/MIN PER NC. HOB ELEVATED FOR RESP COMFORT. ALERT AND ORIENTED X 4. LUNG SOUNDS WHEEZE PER AUSCULTATION. UP WITH ASSIST. HAS BEEN RESTING QUIETLY WITH FEW INTERRUPTIONS. CALL LIGHT IN REACH. WILL CONTINUE TO MONITOR
[2023-02-12 05:03] LABS: BASOPHILS ABSOLUTE AUTO 0.01 K/mm3 (0.00-0.23); BASOPHILS PERCENT AUTO 0 % (0-2); EOSINOPHILS ABSOLUTE AUTO 0.06 K/mm3 (0.00-0.68); EOSINOPHILS PERCENT AUTO 1 % (0-6); Hematocrit 37.8 % (33.0-51.0); Hemoglobin 11.8 g/dL (11.5-16.0); IMMATURE GRAN ABSOLUTE AUTO 0.03 K/mm3 (0.00-0.10); IMMATURE GRAN PERCENT AUTO 0 % (0-1); LYMPHOCYTES PERCENT AUTO 25 % (21-46); MONOCYTES PERCENT AUTO 7 % (4-13); Mean Corpuscular HGB 26.8 pg (26.0-34.0); Mean Corpuscular HGB Conc 31.2 g/dL (31.5-36.5); Mean Corpuscular Volume 86 fL (80-100); Mean Platelet Volume 11.3 fL (9.1-12.4); NEUTROPHILS PERCENT AUTO 66 % (41-73); Platelet Count 177 K/mm3 (150-400); RDW Coefficient Variation 14.9 % (11.7-14.2); RDW Standard Deviation 47.4 fL (35.1-46.3); Red Blood Cell Count 4.41 M/mm3 (3.80-5.20)
[2023-02-12 05:44] LABS: Albumin, Blood 2.9 g/dL (3.4-5.0); Anion Gap 1 mmol/L (6-16); Blood Urea Nitrogen 19 mg/dL (8-24); Bun/Creatinine Ratio 20.7 (12.0-20.0); CO2, Blood 33 mmol/L (21-32); Calcium, Blood 8.9 mg/dL (8.5-10.1); Chloride, Blood 103 mmol/L (98-108); Creatinine, Blood 0.92 mg/dL (0.40-1.00); Glomerular Filtration Rate 67 (60-); Glucose, Blood 96 mg/dL (70-99); Phosphorus, Blood 1.8 mg/dL (2.5-4.9); Potassium, Blood 4.2 mmol/L (3.5-5.5); Sodium, Blood 137 mmol/L (136-145)
[2023-02-12 07:46] VITALS: BP 127/83
[2023-02-12 15:06] VITALS: BP 133/86
[2023-02-12 15:07] VITALS: BP 143/85
--- NOTE | 2023-02-12 16:48 | NUR ---
SHIFT SUMMARY PT A&OX4 AND PLEASANT. NO ACUTE CHANGES. PT C/O CHRONIC PAIN IN LEFT ARM. DR GRAY SPOKE WITH PT THIS AFTERNOON ABOUT PAIN MANAGMENT. CHANGES MADE TO PAIN MEDICATIONS. MEDICATED PER EMAR. PT DECLINED HEAT OR ICE PACK STATING THEY DON'T HELP WITH PAIN. FAMILY AT BESIDE IN MORNING. CALLS APPROPRIATLY. BED IN LOWEST POSITION AND CALL LIGHT IN REACH.
[2023-02-12 19:22] VITALS: BP 133/83
--- NOTE | 2023-02-12 23:32 | NUR ---
BEGINNING OF SHIFT THIS STUDENT NURSE ASSUMED CARE OF THE PATIENT AT 1900. PT A&O X4, AND REQUESTED HER PRESCRIBED ELAVIL. THIS STUDENT NURSE PREFORMED HER PHYSICAL ASSESSMENT, BUT NURSE OLIVERIO CRAFT MY OBSERVING NURSE ADMINISTERED HER MEDICATIONS. PT REFUSED HOSPITAL MEAL, PT FAMILY BROUGHT IN DINNER. PT LEFT IN STATE OF COMFORT AND SAFETY, BED IN LOW POSITION, CALL LIGHT WITHIN REACH, TOP SIDE RAILS RAISED.
--- NOTE | 2023-02-13 04:15 | NUR ---
SHIFT SUMMARY THIS STUDENT NURSE IS RECEIVING ANTIBIOTICS TO ADDRESS POSSIBLE CAUSES OF HER ACUTE ENCEPHALOPATHY. SLIGHT LEFT FACIAL DROOP AND LUE NUMBNESS/TINGLING STATED BY PATIENT SINCE THE 1999. PATIENT REMAINED A&O X4 THROUGHOUT MY SHIFT. EXP WHEEZE AUSCALTED THROUGHOUT LUNG CARMONA, CONTINUES TO RECEIVE MEDS TO ADDRESS RESPIRATORY ISSUES. PT ON 2L OF O2 VIA N/C WITH O2 ABOVE 90%. PATIENT SLEPT THROUGH THE NIGHT WITH NO SIGNS OF DISTRESS OR DISCOMFORT. PATIENT REMAINED IN A STATE OF SAFETY, 1 PERSON ASSIST TO AMBULATE, BED IN A LOW POSITION, CALL LIGHT WITHIN REACH, AND THE TOP BED RAILS UP. WILL CONTINUE TO MONITOR THROUGH MY SHIFT.
[2023-02-13 04:31] VITALS: BP 145/71
--- NOTE | 2023-02-13 04:52 | NUR ---
MED TELE NOTE LIFT SLAB OPERATOR REPORTED RUN OF TRIGEMINY OF SOME 40 SECONDS EARLIER, LIFT SLAB OPERATOR REPORTED THAT PT HAS HX OF TRIGEMINY IN THE PAST, NO NOTED DISTRESS. ASYMPTOMATIC. CURRENTLY SR AT 92. WILL CONTINUE TO MONITOR.
--- NOTE | 2023-02-13 04:55 | NUR ---
I HAVE OBSERVED PERFORMANCE AND READ AND AGREE WITH STUDENT DOCUMENTATION ON PT.
[2023-02-13 07:03] VITALS: BP 146/98
[2023-02-13 14:58] VITALS: BP 157/95
[2023-02-13] MEDS ORDERED: FLUTICASONE-SA1 EA11 INH (15:35)
== END 2023-02-13 16:04 | disposition home health service (06) ==
LOC: ER 18:43 → MEDS 18:44
PROVIDERS: Family Medicine; Student in an Organized Health Care Education/Training Program; ADMIT Internal Medicine
DX: G93.41 Metabolic encephalopathy (principal); N17.9 Acute kidney failure, unspecified; J44.1 Chronic obstructive pulmonary disease with (acute) exacerbation; J96.12 Chronic respiratory failure with hypercapnia; E87.29 Other acidosis; I10 Essential (primary) hypertension; G90.50 Complex regional pain syndrome I, unspecified; Z79.51 Long term (current) use of inhaled steroids; Z87.891 Personal history of nicotine dependence; Z79.899 Other long term (current) drug therapy
CPT/HCPCS: 36415; 70450; 71046; 80053; 80069; 81001; 82803; 83735; 83880; 84484; 85025; 93005; 93010; 94640; 94664; 94760; 96372; 96374; 96375; 96376; 97129; 97166; 97535; 99285-25; A9270; G0378; J1644; J1790; J2930; J7030; J7512

== ENCOUNTER 2023-10-22 01:40 | Inpatient (IN) | payer OTHER ==
[~2023-10-22] VITALS: Ht 165.1 cm; Wt 71.3 kg
[~2023-10-22 01:40] MED LIST changes: +FLUTICASONE-SA1 EA11 INH
[2023-10-22 02:10] LABS: BASOPHILS ABSOLUTE AUTO 0.04 K/mm3 (0.00-0.23); BASOPHILS PERCENT AUTO 0 % (0-2); Base Excess Venous 3.8 mmol/L; Bicarbonate Venous 27.5 mmol/L (24.0-30.0); EOSINOPHILS ABSOLUTE AUTO 0.02 K/mm3 (0.00-0.68); EOSINOPHILS PERCENT AUTO 0 % (0-6); Hematocrit 41.2 % (33.0-51.0); Hemoglobin 13.6 g/dL (11.5-16.0); IMMATURE GRAN PERCENT AUTO 1 % (0-1); LYMPHOCYTES ABSOLUTE AUTO 0.78 K/mm3 (0.84-5.20); LYMPHOCYTES PERCENT AUTO 4 % (21-46); MONOCYTES ABSOLUTE AUTO 0.78 K/mm3 (0.16-1.47); MONOCYTES PERCENT AUTO 4 % (4-13); Mean Corpuscular HGB 27.7 pg (26.0-34.0); Mean Corpuscular Volume 84 fL (80-100); Mean Platelet Volume 9.9 fL (9.1-12.4); NEUTROPHILS ABSOLUTE AUTO 15.93 K/mm3 (1.96-9.15); NEUTROPHILS PERCENT AUTO 90 % (41-73); PCO2 Venous 40.9 mmHg (38-42); Platelet Count 213 K/mm3 (150-400); RDW Coefficient Variation 13.5 % (11.7-14.2); RDW Standard Deviation 41.9 fL (35.1-46.3); Red Blood Cell Count 4.91 M/mm3 (3.80-5.20); White Blood Cell Count 17.75 K/mm3 (4.00-11.30); pH Blood Venous 7.44 (7.34-7.37)
[2023-10-22 02:23] LABS: Albumin, Blood 3.2 g/dL (3.4-5.0); Albumin/Globulin Ratio 0.8 (0.8-1.8); Bilirubin, Total 0.6 mg/dL (0.1-1.0); Bun/Creatinine Ratio 13.6 (12.0-20.0); Calcium, Blood 8.7 mg/dL (8.5-10.1); Creatinine, Blood 0.73 mg/dL (0.40-1.00); Globulin, Blood 4.2 g/dL (2.2-4.0); Magnesium, Blood 1.7 mg/dL (1.6-2.4); Phosphorus, Blood 1.8 mg/dL (2.5-4.9); Potassium, Blood 4.3 mmol/L (3.5-5.5); Total Protein, Blood 7.4 g/dL (6.4-8.2)
[2023-10-22 03:01] LABS: Influenza A, PCR NEGATIVE (NEGATIVE); Influenza B, PCR NEGATIVE (NEGATIVE); Resp Syncytial Virus, PCR NEGATIVE (NEGATIVE)
[2023-10-22 03:31] LABS: SARS-Cov-2 (COVID-19) PCR, MMC POSITIVE (NEGATIVE)
[2023-10-22 05:46] VITALS: BP 145/90
[2023-10-22 07:00] VITALS: BP 111/74
--- NOTE | 2023-10-22 09:30 | NUR ---
AT [facility] PT REPORTS CHRONIC PAIN TO L HAND PT REPORTS TAKING 1/2 TAB OF PRESCRIBED 30MG MORPHINE PART OF HOME MEDS FOR PAIN. PT NOTED TO HAVE MORPHINE IN PURSE, THIS RN ATTEMPTED TO TAKE MEDICATION AND LOCK IN PT DRAWER FOR SAFETY, PT REFUSED. PT REPORTS SON IS GOING TO COME PICK MEDICATION UP AND TAKE HOME. PAIN MEDICATION REQUESTED FROM NO ORDERS GIVEN AT THIS TIME.
[2023-10-22 10:17] LABS: Source, Urine Clean Catch
--- NOTE | 2023-10-22 10:22 | NUR ---
URINE COLLECTED AND SENT TO LAB [facility]IO ALBERTO BREWSTER RN.
[2023-10-22 10:26] LABS: Appearance, Urine Clear (Clear); Bilirubin, Urine Neg (Neg); Blood, Urine 3+ (Neg); Color, Urine Yellow (P-Yellow); Glucose Qualitative, Urine Neg (Neg); Ketones, Urine Neg (Neg); Leukocyte Esterase, Urine Neg (Neg); Nitrite, Urine Neg (Neg); Protein, Urine 2+ (Neg); Urobilinogen, Urine NORM (Normal)
[2023-10-22 10:37] LABS: Squamous Epithelial Cells Rare /hpf (Few); White Blood Cells, Urine 0-2 /hpf (0-5)
[2023-10-22 10:38] LABS: Bacteria Rare /hpf
--- NOTE | 2023-10-22 11:11 | NUR ---
PT C/O PAIN AT IV SITE. IV IN RAC REMOVED, NEW PIV PLACED.
--- NOTE | 2023-10-22 11:30 | NUR ---
PT SON PICKED UP PT HOME MEDICATION MORPHINE AND TOOK HOME.
[2023-10-22 11:56] VITALS: BP 119/83
[2023-10-22 16:02] VITALS: BP 115/72
--- NOTE | 2023-10-22 16:26 | NUR ---
PT HR IN 90s-110s NOTIFIED, ORDERS GIVEN TO HOLD DIGOXIN AND CARDIZEM AT THIS TIME.
[2023-10-22 16:28] VITALS: BP 120/77
--- NOTE | 2023-10-22 17:50 | NUR ---
SHIFT SUMMARY PT AOX4. VSS. HEARTH RHYTHM SINUS TACH 110s. SPO2>92% ON 4L VIA NC. CALLED DUE TO PT NOTED TO HAVE WHEEZING ORDER PLACED FFOR BREATHING TX. PT UP IN ROOM TODAY TO SHOWER WITH STANDBY ASSIST PCT. NO ACUTE CHANGES.
[2023-10-22 19:56] VITALS: BP 157/80
[2023-10-23 00:26] VITALS: BP 114/73
[2023-10-23 04:50] VITALS: BP 124/80
--- NOTE | 2023-10-23 06:48 | NUR ---
SHIFT SUMMARY A/Ox4 AND COOPERATIVE WITH CARE. ANSWERS QUESTIONS APPROPRIATELY AND ABLE TO MAKE HER NEEDS KNOWN. NO ACUTE EVENTS OVER NIGHT FOR PT WAS ABLE TO GET INTERMITTENT SLEEP T/O THE NIGHT. CARDIAC, REMAINS IN SR 70-90'S THROUGHOUT THE NIGHT WITH NO COMPLAINTS OF CP OR PRESSURE DURING THE NIGHT. RESPIRATORY, MAINTAINS SPO2 >94% ON 2-4L VIA NC. LS CONTINUE TO BE COARSE WITH SOME WHEEZING NOTED. PT ALSO REFUSED TWO BREATHING TREATMENT DURING THE NIGHT SAYING, "I WOULD RATHER JUST SLEEP. DON'T WAKE ME". PT EDUCATED ON NEED TO TAKE BREATHING TREATMENTS TO HELP OPEN UP HER AIRWAYS AND ALLOW FOR BETTER GAS EXCHANGE. GI/, ABLE TO STAND PIVOT TO BSC VOIDING YELLOW URINE. NO BM THIS SHIFT. REMAINS IN DROPLET PRECAUTIONS. ENDY STOUT OF THIS NOTE.
[2023-10-23 08:05] VITALS: BP 134/60
[2023-10-23 08:50] LABS: BASOPHILS ABSOLUTE AUTO 0.02 K/mm3 (0.00-0.23); BASOPHILS PERCENT AUTO 0 % (0-2); EOSINOPHILS ABSOLUTE AUTO 0.03 K/mm3 (0.00-0.68); EOSINOPHILS PERCENT AUTO 0 % (0-6); Hematocrit 41.1 % (33.0-51.0); Hemoglobin 13.3 g/dL (11.5-16.0); IMMATURE GRAN ABSOLUTE AUTO 0.07 K/mm3 (0.00-0.10); IMMATURE GRAN PERCENT AUTO 1 % (0-1); LYMPHOCYTES ABSOLUTE AUTO 2.67 K/mm3 (0.84-5.20); LYMPHOCYTES PERCENT AUTO 18 % (21-46); MONOCYTES ABSOLUTE AUTO 0.62 K/mm3 (0.16-1.47); MONOCYTES PERCENT AUTO 4 % (4-13); Mean Corpuscular HGB 27.7 pg (26.0-34.0); Mean Corpuscular HGB Conc 32.4 g/dL (31.5-36.5); Mean Corpuscular Volume 85 fL (80-100); Mean Platelet Volume 10.1 fL (9.1-12.4); NEUTROPHILS ABSOLUTE AUTO 11.47 K/mm3 (1.96-9.15); NEUTROPHILS PERCENT AUTO 77 % (41-73); Platelet Count 204 K/mm3 (150-400); RDW Coefficient Variation 13.6 % (11.7-14.2); Red Blood Cell Count 4.81 M/mm3 (3.80-5.20); White Blood Cell Count 14.88 K/mm3 (4.00-11.30)
[2023-10-23 09:16] LABS: Albumin, Blood 2.8 g/dL (3.4-5.0); Albumin/Globulin Ratio 0.7 (0.8-1.8); Bilirubin, Total 0.4 mg/dL (0.1-1.0); Bun/Creatinine Ratio 22.3 (12.0-20.0); Creatinine, Blood 0.72 mg/dL (0.40-1.00); Globulin, Blood 4.3 g/dL (2.2-4.0); Phosphorus, Blood 2.8 mg/dL (2.5-4.9); Potassium, Blood 3.9 mmol/L (3.5-5.5); Total Protein, Blood 7.1 g/dL (6.4-8.2)
--- NOTE | 2023-10-23 10:48 | NUR ---
AM NOTES; PT A&OX3-4, FORGETFUL AT TIMES, CALLS APPROPRIATELY. PT HAS BEEN USING THE BEDSIDE COMMODE INDEPENDENTLY SITS IN MERYL SIDE OF THE BED FOR MEALS. PT DESATS TO LOW 80'S WITH ACTIVITY PT HAS BEEN ON 2L OF O2 SINCE LAST NIGHT TO INCREASE O2 TO 4L NEEDED WITH ACTIVITY. PT TRANSITIONED TO MEDICAL STATUS NO TELE. THE REST OF THE VITALS REMAINED STABLE. PT HAS AUDIBLE WHEEZES WHICH PER PT IS NORMAL D/T HER COPD, BREATHING TX PER RT. SOB WITH EXERTION. PT MEDICATED WITH PAIN MEDICINE FOR LEFT ARM PAIN AND BACK. NO OTHER ISSUES REPORTED. CALL LIGHTS IN REACH WILL CONTINUE TO MONITOR
[2023-10-23 15:48] VITALS: BP 112/77
--- NOTE | 2023-10-23 18:33 | NUR ---
PT SUMMARY: PT TRANSFERRED TO 324 ALL BELONGING SENT WITH THE PT, ACCOMPANIED BY PVT VIA WHEELCHAIR. NO ACUTE EVENTS FOR THE SHIFT. PT HAS BEEN ON 2L OF O2 T/O SHIFT, VITALS HAS BEEN STABLE. PT HAS BEEN MEDICATED FOR PAIN WITH PO MORPHINE FOR LEFT ARM PAIN. PT HAS BEEN COOPERATIVE AND PLEASANT. CONTINENT USES BEDSIDE COMMODE FOR TOILETING. REPORT GIVEN TO CINTHIA DAVE
--- NOTE | 2023-10-23 19:32 | NUR ---
TRANSFER NOTE PT TRANSFERRED FROM PCU, REPORT RECEIVED FROM JOLIE CAMACHO. PT ORIENTED TO THE ROOM. REPORT GIVEN TO THE NIGHT NURSE.
[2023-10-23 19:54] VITALS: BP 130/81
[2023-10-24 04:10] VITALS: BP 86/56
--- NOTE | 2023-10-24 04:17 | NUR ---
1900: ASSUMED CARE OF PT, BEDSIDE REPORT RECEIVED FROM DAY SHIFT RN. PT IS SITTING UP IN BED OXYGEN AT 2LPM, BASELINE. BREATHING IS EVEN AND UNLABORED, PT DENIES SOB. NO SOB UPON AMBULATION TO THE BATHROOM. A/O X4, CAN MAKE NEEDS KNOWN, USES THE CALL LIGHT APPROPRIATLY. NO ACUTE EVENTS DURING THE SHIFT. SAFETY MEASURES TAKEN, ALL NEEDS ADDRESSED.
[2023-10-24 06:13] LABS: BASOPHILS ABSOLUTE AUTO 0.02 K/mm3 (0.00-0.23); BASOPHILS PERCENT AUTO 0 % (0-2); EOSINOPHILS ABSOLUTE AUTO 0.01 K/mm3 (0.00-0.68); EOSINOPHILS PERCENT AUTO 0 % (0-6); Hematocrit 37.2 % (33.0-51.0); Hemoglobin 12.2 g/dL (11.5-16.0); IMMATURE GRAN ABSOLUTE AUTO 0.05 K/mm3 (0.00-0.10); IMMATURE GRAN PERCENT AUTO 0 % (0-1); LYMPHOCYTES ABSOLUTE AUTO 2.38 K/mm3 (0.84-5.20); LYMPHOCYTES PERCENT AUTO 21 % (21-46); MONOCYTES ABSOLUTE AUTO 0.59 K/mm3 (0.16-1.47); MONOCYTES PERCENT AUTO 5 % (4-13); Mean Corpuscular HGB 27.9 pg (26.0-34.0); Mean Corpuscular HGB Conc 32.8 g/dL (31.5-36.5); Mean Corpuscular Volume 85 fL (80-100); Mean Platelet Volume 9.8 fL (9.1-12.4); NEUTROPHILS ABSOLUTE AUTO 8.23 K/mm3 (1.96-9.15); NEUTROPHILS PERCENT AUTO 73 % (41-73); Platelet Count 241 K/mm3 (150-400); RDW Coefficient Variation 13.5 % (11.7-14.2); RDW Standard Deviation 42.6 fL (35.1-46.3); Red Blood Cell Count 4.37 M/mm3 (3.80-5.20); White Blood Cell Count 11.28 K/mm3 (4.00-11.30)
[2023-10-24 06:36] LABS: Albumin, Blood 2.7 g/dL (3.4-5.0); Albumin/Globulin Ratio 0.7 (0.8-1.8); Bilirubin, Total 0.2 mg/dL (0.1-1.0); Bun/Creatinine Ratio 29.4 (12.0-20.0); Calcium, Blood 8.6 mg/dL (8.5-10.1); Creatinine, Blood 0.68 mg/dL (0.40-1.00); Globulin, Blood 3.7 g/dL (2.2-4.0); Potassium, Blood 4.1 mmol/L (3.5-5.5); Total Protein, Blood 6.4 g/dL (6.4-8.2)
[2023-10-24 08:53] VITALS: BP 124/78
[2023-10-24] MEDS ORDERED: GUAI600T33 PO (13:46)
[2023-10-24] MEDS ORDERED: DOCU100 PO (13:46)
[2023-10-24] MEDS ORDERED: FAMO20 PO (13:46)
[2023-10-24] MEDS ORDERED: AZIT500 PO (13:47)
[2023-10-24] MEDS ORDERED: AMOCLA875 PO (13:47)
[2023-10-24] MEDS ORDERED: PRED20 PO (13:48)
[2023-10-24] MEDS ORDERED: IPRAT-ALBUT 0.5-3 ML INH (13:50)
--- NOTE | 2023-10-24 15:18 | NUR ---
PT DISCHARGED AT 1500 NO DISTRESS NOTED. PT HAD FAMILY MEMBER PICKED UP. ALL PAPER WORK REVIEWED AND EDUCTIONAL MATERIAL WAS SENT WITH PT. PT WAS WALKIING AROUND INDEPENDENTLY. PT ESCORTED OUT TO N ENTRANCE BY AIDE.
== END 2023-10-24 15:00 | disposition home or self-care (01) | DRG 871 ==
LOC: ER 01:40 → PCU 04:20 → MEDS 04:20 → PCU 05:08 → MEDS 10-23 18:21
PROVIDERS: Emergency Medicine; Family Medicine; ADMIT Internal Medicine
PROC: XW033E5 Introduction of Remdesivir Anti-infective into Peripheral Vein, Percutaneous Approach, New Technology Group 5 (ICD-10-PCS; principal; 2023-10-22)
PROC: 8E0ZXY6 Isolation (ICD-10-PCS; 2023-10-22)
PROC: 3E0333Z Introduction of Anti-inflammatory into Peripheral Vein, Percutaneous Approach (ICD-10-PCS; 2023-10-22)
PROC: 3E03329 Introduction of Other Anti-infective into Peripheral Vein, Percutaneous Approach (ICD-10-PCS; 2023-10-22)
PROC: XW0DXM6 Introduction of Baricitinib into Mouth and Pharynx, External Approach, New Technology Group 6 (ICD-10-PCS; 2023-10-23)
DX: A41.9 Sepsis, unspecified organism (principal); J12.82 Pneumonia due to coronavirus disease 2019; U07.1 COVID-19; J96.21 Acute and chronic respiratory failure with hypoxia; J44.1 Chronic obstructive pulmonary disease with (acute) exacerbation; J44.0 Chronic obstructive pulmonary disease with (acute) lower respiratory infection; E87.1 Hypo-osmolality and hyponatremia; E83.39 Other disorders of phosphorus metabolism; I10 Essential (primary) hypertension; Z99.81 Dependence on supplemental oxygen; Z87.891 Personal history of nicotine dependence; Z79.891 Long term (current) use of opiate analgesic
CPT/HCPCS: 0241U; 29515; 36415; 71045; 80053; 81001; 82803; 83605; 83735; 84100; 84145; 84484; 85025; 93005; 93010; 94640; 94664; 94760; 94762; 96365; 96367; 96374-59; 96375; 96375-59; 99285-25; A9270; C9399; J0248; J0456; J0696; J1100; J1650; J2405; J7050; J7060

== ENCOUNTER 2024-09-02 14:57 | Emergency (ER) | payer OTHER ==
[~2024-09-02] VITALS: Ht 162.6 cm; Wt 68.0 kg
[~2024-09-02 14:57] MED LIST changes: +AMOCLA875 PO; +AZIT500 PO; +DOCU100 PO; +FAMO20 PO; +GUAI600T33 PO; +IPRAT-ALBUT 0.5-3 ML INH; +PRED20 PO
[2024-09-02] MEDS ORDERED: Albuterol 2.5 MG/3 ML VIAL INH SCH (15:15)
[2024-09-02] MEDS ORDERED: Ipratropium Bromide INH 0.02% 0.5 mg/2.5ML Vial INH SCH (15:15)
[2024-09-02 15:32] LABS: BASOPHILS ABSOLUTE AUTO 0.07 K/mm3 (0.00-0.23); BASOPHILS PERCENT AUTO 1 % (0-2); EOSINOPHILS ABSOLUTE AUTO 0.23 K/mm3 (0.00-0.68); EOSINOPHILS PERCENT AUTO 2 % (0-6); Hematocrit 45.3 % (33.0-51.0); Hemoglobin 14.7 g/dL (11.5-16.0); IMMATURE GRAN ABSOLUTE AUTO 0.04 K/mm3 (0.00-0.10); IMMATURE GRAN PERCENT AUTO 0 % (0-1); LYMPHOCYTES PERCENT AUTO 10 % (21-46); MONOCYTES ABSOLUTE AUTO 0.59 K/mm3 (0.16-1.47); MONOCYTES PERCENT AUTO 6 % (4-13); Mean Corpuscular HGB 27.6 pg (26.0-34.0); Mean Corpuscular HGB Conc 32.5 g/dL (31.5-36.5); Mean Corpuscular Volume 85 fL (80-100); Mean Platelet Volume 10.1 fL (9.1-12.4); NEUTROPHILS ABSOLUTE AUTO 8.56 K/mm3 (1.96-9.15); NEUTROPHILS PERCENT AUTO 81 % (41-73); Platelet Count 316 K/mm3 (150-400); RDW Coefficient Variation 13.2 % (11.7-14.2); RDW Standard Deviation 41.1 fL (35.1-46.3); Red Blood Cell Count 5.32 M/mm3 (3.80-5.20); White Blood Cell Count 10.59 K/mm3 (4.00-11.30)
[2024-09-02] MEDS ORDERED: SPIRIVA RESPIMAT4 G3 IH (15:37)
[2024-09-02] MEDS ORDERED: Lactated Ringer's 1,000 ML IV ONE (15:45)
[2024-09-02 15:47] LABS: Albumin, Blood 3.9 g/dL (3.4-5.0); Albumin/Globulin Ratio 0.9 (0.8-1.8); Bilirubin, Total 0.7 mg/dL (0.1-1.0); Bun/Creatinine Ratio 23.9 (12.0-20.0); Calcium, Blood 9.9 mg/dL (8.5-10.1); Creatinine, Blood 0.88 mg/dL (0.40-1.00); Globulin, Blood 4.5 g/dL (2.2-4.0); Potassium, Blood 4.5 mmol/L (3.5-5.5); Total Protein, Blood 8.4 g/dL (6.4-8.2)
[2024-09-02] MEDS ORDERED: Ondansetron HCl 2 MG / ML 2ML Vial IV ONE (16:10)
[2024-09-02] MEDS ORDERED: RX Prepack 2 Tabs Ondansetron ODT 4MG UD ONE (17:40)
[2024-09-02] MEDS ORDERED: ONDA4ODT MM (17:40)
[2024-09-02 17:54] VITALS: BP 102/68
== END 2024-09-02 17:56 | disposition home or self-care (01) ==
LOC: ER 14:57
PROVIDERS: Student in an Organized Health Care Education/Training Program
DX: K29.00 Acute gastritis without bleeding (principal); J44.9 Chronic obstructive pulmonary disease, unspecified; I10 Essential (primary) hypertension; Z91.030 Bee allergy status; Z79.899 Other long term (current) drug therapy
CPT/HCPCS: 71045; 80053; 85025; 93005; 93010; 94644; 94664; 96361; 96374; 99284-25; A9270; J2405; J7120

== ENCOUNTER 2024-09-03 23:26 | Emergency (ER) | payer OTHER ==
[~2024-09-03] VITALS: Ht 162.6 cm; Wt 68.0 kg
[~2024-09-03 23:26] MED LIST changes: +ONDA4ODT MM; +SPIRIVA RESPIMAT4 G3 IH
[2024-09-04 00:10] LABS: BASOPHILS ABSOLUTE AUTO 0.06 K/mm3 (0.00-0.23); BASOPHILS PERCENT AUTO 1 % (0-2); EOSINOPHILS PERCENT AUTO 1 % (0-6); Hematocrit 42.6 % (33.0-51.0); Hemoglobin 13.6 g/dL (11.5-16.0); IMMATURE GRAN ABSOLUTE AUTO 0.04 K/mm3 (0.00-0.10); IMMATURE GRAN PERCENT AUTO 0 % (0-1); LYMPHOCYTES ABSOLUTE AUTO 1.11 K/mm3 (0.84-5.20); LYMPHOCYTES PERCENT AUTO 11 % (21-46); MONOCYTES ABSOLUTE AUTO 0.53 K/mm3 (0.16-1.47); MONOCYTES PERCENT AUTO 5 % (4-13); Mean Corpuscular HGB 27.6 pg (26.0-34.0); Mean Corpuscular HGB Conc 31.9 g/dL (31.5-36.5); Mean Corpuscular Volume 87 fL (80-100); Mean Platelet Volume 10.3 fL (9.1-12.4); NEUTROPHILS ABSOLUTE AUTO 8.37 K/mm3 (1.96-9.15); NEUTROPHILS PERCENT AUTO 82 % (41-73); Platelet Count 250 K/mm3 (150-400); RDW Coefficient Variation 13.2 % (11.7-14.2); RDW Standard Deviation 41.9 fL (35.1-46.3); Red Blood Cell Count 4.92 M/mm3 (3.80-5.20); White Blood Cell Count 10.21 K/mm3 (4.00-11.30)
[2024-09-04 00:29] LABS: Albumin, Blood 3.5 g/dL (3.4-5.0); Albumin/Globulin Ratio 0.9 (0.8-1.8); Bilirubin, Total 0.8 mg/dL (0.1-1.0); Bun/Creatinine Ratio 27.7 (12.0-20.0); Calcium, Blood 9.4 mg/dL (8.5-10.1); Creatinine, Blood 0.72 mg/dL (0.40-1.00); Potassium, Blood 4.4 mmol/L (3.5-5.5); Total Protein, Blood 7.5 g/dL (6.4-8.2)
[2024-09-04] MEDS ORDERED: NS 1,000 ML IV SCH (00:45)
[2024-09-04] MEDS ORDERED: Midazolam HCl 1MG / ML 2ML Vial IV ONE (04:40)
[2024-09-04 04:52] LABS: Source, Urine Clean Catch
[2024-09-04 05:11] LABS: Appearance, Urine Clear (Clear); Bilirubin, Urine Neg (Neg); Blood, Urine 4+ (Neg); Color, Urine Yellow (P-Yellow); Glucose Qualitative, Urine Neg (Neg); Ketones, Urine 1+ (Neg); Leukocyte Esterase, Urine 1+ (Neg); Nitrite, Urine Neg (Neg); Protein, Urine 1+ (Neg); Urobilinogen, Urine NORM (Normal)
[2024-09-04 06:12] LABS: Red Blood Cells, Urine 50-100 /hpf (0-2)
[2024-09-04 06:19] LABS: Bacteria Many /hpf; Squamous Epithelial Cells Rare /hpf (Few)
[2024-09-04] MEDS ORDERED: Ipratropium/Albuterol SulF 2.5-0.5MG/3 ML Amp INH ONE (07:55)
[2024-09-04 09:16] LABS: Influenza A, PCR NEGATIVE (NEGATIVE); Influenza B, PCR NEGATIVE (NEGATIVE); Resp Syncytial Virus, PCR NEGATIVE (NEGATIVE); SARS-Cov-2 (COVID-19) PCR, MMC NEGATIVE (NEGATIVE)
[2024-09-04 11:00] VITALS: BP 158/98
[2024-09-04] MEDS ORDERED: Ondansetron HCl 2 MG / ML 2ML Vial IV ONE (11:20)
== END 2024-09-04 11:35 | disposition home or self-care (01) ==
LOC: ER 23:26
PROVIDERS: Emergency Medicine
DX: T40.2X1A Poisoning by other opioids, accidental (unintentional), initial encounter (principal); J44.1 Chronic obstructive pulmonary disease with (acute) exacerbation; J98.8 Other specified respiratory disorders; I10 Essential (primary) hypertension; Z79.899 Other long term (current) drug therapy; Z91.030 Bee allergy status
CPT/HCPCS: 0241U; 71046; 80053; 81001; 85025; 87077; 87086; 87186; 93005; 93010; 94640; 94664; 96361; 96374; 96375; 99285-25; J2250; J2405; J7030

== ENCOUNTER 2024-12-26 11:03 | Inpatient (IN) | payer MEDICARE ==
[2024-12-26] VITALS (32 sets, daily range): BP systolic 90–149; BP diastolic 54–107
[~2024-12-26] VITALS: Ht 157.5 cm; Wt 69.0 kg
[~2024-12-26 11:03] MED LIST changes: -SPIRIVA RESPIMAT4 G3 IH; +SPIRIVA RESPIMAT4 G3 INH
[2024-12-26] MEDS ORDERED: Albuterol 2.5 MG/3 ML VIAL INH SCH (11:10)
[2024-12-26] MEDS ORDERED: Magnesium Sulf 2 GM/Water 50ML 50 ML IV ONE (11:10)
[2024-12-26 11:37] LABS: pH Blood Venous 7.19 (7.34-7.37)
[2024-12-26 11:38] LABS: Base Excess Venous 8.2 mmol/L; Bicarbonate Venous 27.9 mmol/L (24.0-30.0)
[2024-12-26 11:49] LABS: BASOPHILS ABSOLUTE AUTO 0.06 K/mm3 (0.00-0.23); BASOPHILS PERCENT AUTO 0 % (0-2); EOSINOPHILS ABSOLUTE AUTO 0.01 K/mm3 (0.00-0.68); EOSINOPHILS PERCENT AUTO 0 % (0-6); Hematocrit 45.5 % (33.0-51.0); Hemoglobin 14.4 g/dL (11.5-16.0); IMMATURE GRAN ABSOLUTE AUTO 0.09 K/mm3 (0.00-0.10); IMMATURE GRAN PERCENT AUTO 1 % (0-1); LYMPHOCYTES ABSOLUTE AUTO 0.39 K/mm3 (0.84-5.20); LYMPHOCYTES PERCENT AUTO 2 % (21-46); MONOCYTES ABSOLUTE AUTO 1.09 K/mm3 (0.16-1.47); MONOCYTES PERCENT AUTO 6 % (4-13); Mean Corpuscular HGB 27.1 pg (26.0-34.0); Mean Corpuscular HGB Conc 31.6 g/dL (31.5-36.5); Mean Corpuscular Volume 86 fL (80-100); Mean Platelet Volume 11.1 fL (9.1-12.4); NEUTROPHILS ABSOLUTE AUTO 17.74 K/mm3 (1.96-9.15); NEUTROPHILS PERCENT AUTO 92 % (41-73); Platelet Count 222 K/mm3 (150-400); RDW Coefficient Variation 13.8 % (11.7-14.2); RDW Standard Deviation 43.1 fL (35.1-46.3); Red Blood Cell Count 5.31 M/mm3 (3.80-5.20); White Blood Cell Count 19.38 K/mm3 (4.00-11.30)
[2024-12-26 12:01] LABS: Albumin, Blood 3.9 g/dL (3.4-5.0); Bilirubin, Total 0.7 mg/dL (0.1-1.0); Bun/Creatinine Ratio 19.2 (12.0-20.0); Calcium, Blood 9.3 mg/dL (8.5-10.1); Creatinine, Blood 0.73 mg/dL (0.40-1.00); Magnesium, Blood 2.2 mg/dL (1.6-2.4); Potassium, Blood 4.8 mmol/L (3.5-5.5); Total Protein, Blood 7.9 g/dL (6.4-8.2)
[2024-12-26] MEDS ORDERED: CefTRIAXone Sodium 2,000 MG in NS 100 ML IV ONE (12:10)
[2024-12-26] MEDS ORDERED: Azithromycin 500 MG in NS 250 ML IV ONE (12:10)
[2024-12-26] MEDS ORDERED: NS 1,000 ML IV SCH (12:10)
[2024-12-26 12:49] LABS: Base Excess Venous 3.8 mmol/L; Bicarbonate Venous 25.5 mmol/L (24.0-30.0); PCO2 Venous 78.4 mmHg (38-42); pH Blood Venous 7.21 (7.34-7.37)
[2024-12-26 13:06] LABS: Influenza A, PCR NEGATIVE (NEGATIVE); Influenza B, PCR NEGATIVE (NEGATIVE); Resp Syncytial Virus, PCR NEGATIVE (NEGATIVE); SARS-Cov-2 (COVID-19) PCR, MMC NEGATIVE (NEGATIVE)
[2024-12-26] MEDS ORDERED: FLU VACC TS2024-25(6MOS UP)/PF 45 MCG/0.5 ML SYRINGE IM PRN (14:45)
[2024-12-26] MEDS ORDERED: LORazepam 2 MG/ML 1ML Injection IV ONE (15:10)
[2024-12-26] MEDS ORDERED: LORazepam 2 MG/ML 1ML Injection ONE (15:12)
[2024-12-26] MEDS ORDERED: Ipratropium/Albuterol SulF 2.5-0.5MG/3 ML Amp INH ONE (15:30)
[2024-12-26 16:08] LABS: Bicarbonate Venous 23.5 mmol/L (24.0-30.0); PCO2 Venous 74.9 mmHg (38-42)
[2024-12-26] MEDS ORDERED: Albuterol 2.5 MG/3 ML VIAL INH PRN (16:25)
[2024-12-26] MEDS ORDERED: dexmedeTOMIDine 100 ML IV SCH (16:25)
[2024-12-26] MEDS ORDERED: Ipratropium/Albuterol SulF 2.5-0.5MG/3 ML Amp INH SCH (16:25)
[2024-12-26] MEDS ORDERED: Insulin Human Lispro 100 Units/ML 3ML Syringe SC SCH (16:30)
[2024-12-26] MEDS ORDERED: Morphine Sulfate 4 MG/1 ML Injection IV PRN (17:15)
[2024-12-26] MEDS ORDERED: MethylPREDNISolone Sod Succ 125 MG Vial IV SCH (18:00)
[2024-12-26 19:05] LABS: Base Excess Venous 1.3 mmol/L; Bicarbonate Venous 24.9 mmol/L (24.0-30.0); PCO2 Venous 49.2 mmHg (38-42); pH Blood Venous 7.35 (7.34-7.37)
--- NOTE | 2024-12-26 19:31 | NUR ---
ARRIVAL AND SHIFT SUMMARY: NEURO: WHEN PATIENT ARRIVED TO UNIT AT 1605. PATIENT WITHDREW FROM PAINFUL STIMULI, BUT DID NOT RESPOND TO DIRECTIONS. THE SHIFT PROGRESSED, PATIENT WOULD ATTEMPT TO OPEN EYES WHEN REQUESTED. PATIENT MEDICATED ONCE FOR PAIN WITH PRN MORPHINE. PRECEDEX AT 0.2 MCG/KG/HR TO ASSIST WITH TOLERANCE OF BIPAP. RESPIRATORY: PATIENT ON BIPAP 12/6/40%. SPO2 >90%. PATIENT'S WORK OF BREATHING IMPROVED WITH PRN MORPHINE. RR IN THE HIGH 20S/LOW 30S BY THE END OF THE SHIFT ( OPPOSED TO LOW TO MID 30S BEFORE THE MORPHINE). CARDIAC: BLOOD PRESSURES STABLE THROUGHOUT THE SHIFT WITH MAPS >65. HR TACHY WITH RATE 100S-110. GI/: PATIENT STILL DUE TO VOID BY THE END OF THE SHIFT. PATIENT ARRIVED TO UNIT WITH A WET BRIEF. DAILY BED BATH PERFORMED, CLEAN ATTENDS IN PLACE AND PUREWICK PLACED. PSYCHSOCIAL: UPDATED THE PATIENT'S SON OLIVERIO ABOUT THE PATIENTS CONDITION. HE REPORTED THAT THE PATIENT IS MANDAEN AND DOES NOT WANT BLOOD PRODUCTS.
--- NOTE | 2024-12-26 20:00 | NUR ---
ASSUMED CARE OF PT AT 1900. REPORT RECEIVED AT BEDSIDE. PT PRESENTS IN BED. PRECEDEX AT 0.2 MCG'S WHICH HAS ALLOWED PT TO TOLERATE BIPAP MASK. NO S/S DISTRESS. MAINTAINS SATURATIONS > 90 PERCENT. WILL REVIEW CHART AND PLAN OF CARE FOR THIS PT.
[2024-12-26 23:05] LABS: Base Excess Venous 4.6 mmol/L; Bicarbonate Venous 26.7 mmol/L (24.0-30.0); PCO2 Venous 66.7 mmHg (38-42); pH Blood Venous 7.28 (7.34-7.37)
[2024-12-27] VITALS (27 sets, daily range): BP systolic 83–179; BP diastolic 56–122
[2024-12-27 03:25] LABS: Base Excess Venous 6.2 mmol/L; Bicarbonate Venous 28.6 mmol/L (24.0-30.0); PCO2 Venous 53.2 mmHg (38-42); pH Blood Venous 7.38 (7.34-7.37)
[2024-12-27 03:26] LABS: BASOPHILS ABSOLUTE AUTO 0.03 K/mm3 (0.00-0.23); BASOPHILS PERCENT AUTO 0 % (0-2); EOSINOPHILS PERCENT AUTO 0 % (0-6); Hematocrit 40.5 % (33.0-51.0); Hemoglobin 12.8 g/dL (11.5-16.0); IMMATURE GRAN ABSOLUTE AUTO 0.05 K/mm3 (0.00-0.10); IMMATURE GRAN PERCENT AUTO 0 % (0-1); LYMPHOCYTES ABSOLUTE AUTO 0.41 K/mm3 (0.84-5.20); LYMPHOCYTES PERCENT AUTO 3 % (21-46); MONOCYTES ABSOLUTE AUTO 0.43 K/mm3 (0.16-1.47); MONOCYTES PERCENT AUTO 3 % (4-13); Mean Corpuscular HGB 27.2 pg (26.0-34.0); Mean Corpuscular HGB Conc 31.6 g/dL (31.5-36.5); Mean Corpuscular Volume 86 fL (80-100); Mean Platelet Volume 10.6 fL (9.1-12.4); NEUTROPHILS ABSOLUTE AUTO 13.71 K/mm3 (1.96-9.15); NEUTROPHILS PERCENT AUTO 94 % (41-73); Platelet Count 143 K/mm3 (150-400); RDW Coefficient Variation 13.9 % (11.7-14.2); Red Blood Cell Count 4.71 M/mm3 (3.80-5.20); White Blood Cell Count 14.63 K/mm3 (4.00-11.30)
[2024-12-27 04:33] LABS: Magnesium, Blood 2.3 mg/dL (1.6-2.4)
[2024-12-27 04:34] LABS: Albumin/Globulin Ratio 0.8 (0.8-1.8); Bilirubin, Total 0.4 mg/dL (0.1-1.0); Bun/Creatinine Ratio 25.6 (12.0-20.0); Calcium, Blood 8.9 mg/dL (8.5-10.1); Creatinine, Blood 0.59 mg/dL (0.40-1.00); Globulin, Blood 3.6 g/dL (2.2-4.0); Potassium, Blood 4.9 mmol/L (3.5-5.5); Total Protein, Blood 6.6 g/dL (6.4-8.2)
--- NOTE | 2024-12-27 06:30 | NUR ---
HAVE TRANSITIONED PT TO NASAL CANNULA AT 4 L/M. PT STATES THAT SHE USES 2 L/M O2 PER NASAL CANNULA 24 HOURS A DAY AT HOME. PT'S MENTATION HAS GREATLY IMPROVED THROUGHOUT THE NIGHT. PT HAS BEEN TESTED OUT ON NECTAR THICK WATER WHICH SHE HAS BEEN ABLE TO TAKE WELL WITHOUT SWALLOW ISSUDE. WILL TITRATE DOWN PRECEDEX ABLE. WILL CONTINUE TO MONITOR PT, AND WILL REPORT OFF TO ONCOMING RN.
[2024-12-27] MEDS ORDERED: Azithromycin 500 MG in NS 250 ML IV SCH (09:00)
[2024-12-27] MEDS ORDERED: Enoxaparin 40 MG/0.4 ML SYR SC SCH (09:00)
[2024-12-27] MEDS ORDERED: CefTRIAXone Sodium 1,000 MG in NS 100 ML IV SCH (09:00)
[2024-12-27] MEDS ORDERED: ALBU90OI INH (09:02)
[2024-12-27] MEDS ORDERED: DOCU100 PO (09:03)
[2024-12-27] MEDS ORDERED: FLUT1DIS5 INH (10:49)
[2024-12-27] MEDS ORDERED: Morphine Sulfate 30 MG TabCR PO SCH (12:15)
[2024-12-27] MEDS ORDERED: Metoprolol Succinate 25 MG TABCR PO SCH (12:15)
--- NOTE | 2024-12-27 14:00 | NUR ---
Summary. Pt transferred to PCU 3. Report given to RN assuming care. Pt condition stable at time of transfer. All personal belongings sent with patient to new room, family updated with new room number.
--- NOTE | 2024-12-27 17:24 | NUR ---
CHELA RN OVERHEARD PT ASKING METAL SOLDERER TO HELP SEARCH FOR HER NECKLACE. METAL SOLDERER WAS UNSURE OF NECKLACE BEING IN PT'S ROOM. PT EXPRESSED FRUSTRATION ABOUT NOT KNOWING WHERE NECKLACE WAS STATING "THAT IS A 24 CARAT GOLD NECKLACE. IT BETTER BE HERE." METAL SOLDERER FOUND NECKLACE IN A CUP THAT WAS IN WHITE PLASTIC BAG IN PT'S ROOM. THIS RN WAS SITTING OUTSIDE OF ROOM WHEN NECKLACE WAS FOUND AND INSTRUCTED PT TO HAVE THE FAMILY MEMBER THAT WAS PRESENT TAKE THE NECKLACE HOME SO THAT THE NECKLACE DOES NOT COME UP MISSING. PT GAVE NECKLACE TO FAMILY MEMBER TO TAKE HOME.
--- NOTE | 2024-12-27 18:18 | NUR ---
PT SUMMARY; ASSUMED CARE AT APPROX 1400 FROM ICU REPORT RECEIVED FROM NED DAVE. PT HAS BEEN PLEASANT AND COOPERATIVE WITH CARES, ALERT AND ORIENTED X3-4. PT GET ANXIOUS AT TIMES, ON 3L OF O2 VIA NASAL CANNULA SATS KEPT ABOVE 90% BIAP ON STANDBY PRN, SOB WITH EXERTION. VITALS HAS BEEN STABLE. PT DENIES PAIN/DISCOMFORT. NO OTHER ISSUES REPORTED FOR THE SHIFT [facility]
[2024-12-27] MEDS ORDERED: Amitriptyline HCl 50 MG Tab PO SCH (21:11)
[2024-12-28] MEDS ORDERED: Polyethylene Glycol 3350 17 gm PO PRN (02:45)
[2024-12-28 02:58] VITALS: BP 1136/99; BP 136/99
[2024-12-28 04:23] LABS: BASOPHILS ABSOLUTE AUTO 0.02 K/mm3 (0.00-0.23); BASOPHILS PERCENT AUTO 0 % (0-2); EOSINOPHILS PERCENT AUTO 0 % (0-6); Hematocrit 38.1 % (33.0-51.0); Hemoglobin 12.5 g/dL (11.5-16.0); IMMATURE GRAN ABSOLUTE AUTO 0.05 K/mm3 (0.00-0.10); IMMATURE GRAN PERCENT AUTO 0 % (0-1); LYMPHOCYTES ABSOLUTE AUTO 0.52 K/mm3 (0.84-5.20); LYMPHOCYTES PERCENT AUTO 4 % (21-46); MONOCYTES ABSOLUTE AUTO 0.25 K/mm3 (0.16-1.47); MONOCYTES PERCENT AUTO 2 % (4-13); Mean Corpuscular HGB 27.8 pg (26.0-34.0); Mean Corpuscular HGB Conc 32.8 g/dL (31.5-36.5); Mean Corpuscular Volume 85 fL (80-100); Mean Platelet Volume 11.2 fL (9.1-12.4); NEUTROPHILS ABSOLUTE AUTO 13.86 K/mm3 (1.96-9.15); NEUTROPHILS PERCENT AUTO 94 % (41-73); Platelet Count 180 K/mm3 (150-400); RDW Coefficient Variation 14.1 % (11.7-14.2); RDW Standard Deviation 43.4 fL (35.1-46.3)
[2024-12-28 04:42] LABS: Albumin, Blood 2.8 g/dL (3.4-5.0); Albumin/Globulin Ratio 0.8 (0.8-1.8); Bilirubin, Total 0.3 mg/dL (0.1-1.0); Bun/Creatinine Ratio 39.2 (12.0-20.0); Creatinine, Blood 0.59 mg/dL (0.40-1.00); Globulin, Blood 3.5 g/dL (2.2-4.0); Potassium, Blood 4.6 mmol/L (3.5-5.5); Total Protein, Blood 6.3 g/dL (6.4-8.2)
--- NOTE | 2024-12-28 05:21 | NUR ---
SHIFT SUMMARY PT IS A&O X4, ABLE TO MAKE NEEDS KNOWN, OBEYS COMMANDS, MOVING ALL EXTREMITIES WITH PURPOSE, PT EDUCATED TO CALL BEFORE AMBULATING, PT IS A SBA TO [place], PREPOSITIONING SELF IN BED. CONTINUOUS SPO2, SPO2 GREATER 90% ON BASELINE 2L O2 VIA NC. PT DENIES SOB T/O THIS SHIFT, LUNGS SOUND DIM T/O WITH CRACKLES IN THE BASES. CONTINUOUS TELE MONITORING, SINUS/SINUS TACH 90-110 S, PT DENIES CHEST P/P T/O THIS SHIFT, BP STABLE WITH MAP GREATER THAN 65, PULSES PRESENT T/O, MILD LEFT LEG EDEMA. BOWEL TONES PRESENT IN ALL 4Q, PT DENIES FEELINGS OF NAUSEA, PT REPORTED SOME DIFFICULTY WITH BM AND REQUESTED A STOOL SOFTENER/CALLED MD AND NEW ORDERS PLACED. PT REPORTS NO PAIN AND DECLINED HER SCHEDULED 2100 PAIN MEDICATION. BED LOWEST POSITION, CALL LIGHT IN REACH, AWAITING TO GIVE REPORT TO ONCOMING RN.
[2024-12-28 07:25] VITALS: BP 154/92
[2024-12-28 11:30] VITALS: BP 144/53
[2024-12-28] MEDS ORDERED: Ipratropium/Albuterol SulF 2.5-0.5MG/3 ML Amp INH SCH (12:40)
[2024-12-28] MEDS ORDERED: Mometasone/Formoterol MDI 200/5 mcg 13 GM INH SCH (12:40)
[2024-12-28] MEDS ORDERED: Tiotropium Bromide 2.5 MCG/ACT MIST INHAL (10 ACT/4 GM) INH SCH (12:40)
[2024-12-28 15:53] VITALS: BP 155/100
--- NOTE | 2024-12-28 18:45 | NUR ---
PT SUMMARY; NO ACUTE CHANGE FOR THE SHIFT, VITALS HAS BEEN STABLE. REMAINED PLEASANT AND COOPERATIVE WITH CARES. ABLE TO WORK WITH PHYSICAL THERAPY TODAY WAS ABLE TO AMBULATE IN THE ROOM VIA WALKER, RECOMMENDING HOME HEALTH. PT FOR POSSIBLE DC TOMORROW IF NO CHANGES. HRR STILL TACH UP TO 150'S WITH EXERTION AT TIMES, METOPROLOL INCREASED TO 50MG DAILY. PT DENIES CHEST PAIN/PRESSURE. FAMILY CAME IN TO VISIT AND WAS GIVEN UPDATE REGARDING PT'S STATUS. NO OTHER ISSUES ENCOUNTERED FOR THE SHIFT, CALL LIGHTS IN REACH WILL REPORT TO ONCOMING SHIFT
[2024-12-28 20:55] VITALS: BP 132/90
[2024-12-28 23:33] VITALS: BP 149/97
[2024-12-29 04:15] LABS: BASOPHILS ABSOLUTE AUTO 0.02 K/mm3 (0.00-0.23); BASOPHILS PERCENT AUTO 0 % (0-2); EOSINOPHILS PERCENT AUTO 0 % (0-6); Hematocrit 37.1 % (33.0-51.0); Hemoglobin 12.2 g/dL (11.5-16.0); IMMATURE GRAN ABSOLUTE AUTO 0.11 K/mm3 (0.00-0.10); IMMATURE GRAN PERCENT AUTO 1 % (0-1); LYMPHOCYTES ABSOLUTE AUTO 0.81 K/mm3 (0.84-5.20); LYMPHOCYTES PERCENT AUTO 6 % (21-46); MONOCYTES PERCENT AUTO 4 % (4-13); Mean Corpuscular HGB 27.7 pg (26.0-34.0); Mean Corpuscular HGB Conc 32.9 g/dL (31.5-36.5); Mean Corpuscular Volume 84 fL (80-100); Mean Platelet Volume 11.3 fL (9.1-12.4); NEUTROPHILS ABSOLUTE AUTO 12.29 K/mm3 (1.96-9.15); NEUTROPHILS PERCENT AUTO 89 % (41-73); Platelet Count 185 K/mm3 (150-400); RDW Standard Deviation 43.4 fL (35.1-46.3); White Blood Cell Count 13.83 K/mm3 (4.00-11.30)
[2024-12-29 04:30] LABS: Albumin, Blood 2.7 g/dL (3.4-5.0); Albumin/Globulin Ratio 0.8 (0.8-1.8); Bilirubin, Total 0.2 mg/dL (0.1-1.0); Bun/Creatinine Ratio 35.8 (12.0-20.0); Creatinine, Blood 0.67 mg/dL (0.40-1.00); Globulin, Blood 3.3 g/dL (2.2-4.0); Potassium, Blood 3.9 mmol/L (3.5-5.5)
--- NOTE | 2024-12-29 05:46 | NUR ---
SHIFT SUMMARY PT IS A&O X4, ABLE TO MAKE NEEDS KNOWN, OBEYS COMMANDS, MOVING ALL EXTREMITIES WITH PURPOSE, PT EDUCATED TO CALL BEFORE AMBULATING, PT IS A [place] [facility], PREPOSITIONING SELF IN BED. CONTINUOUS SPO2, SPO2 GREATER 90% ON BASELINE 2L O2 VIA NC. PT DENIES SOB T/O THIS SHIFT, LUNGS SOUND DIM T/O WITH CRACKLES IN THE RIGHT BASE OTHER BARBOZA SOUND CLEAR. CONTINUOUS TELE MONITORING, SINUS/SINUS TACH 90-110 S, PT DENIES CHEST P/P T/O THIS SHIFT, BP STABLE WITH MAP GREATER THAN 65, PULSES PRESENT T/O, MILD LEFT LEG EDEMA. BOWEL TONES PRESENT IN ALL 4Q, PT DENIES FEELINGS OF NAUSEA. BED LOWEST POSITION, CALL LIGHT IN REACH, AWAITING TO GIVE REPORT TO ONCOMING RN.
[2024-12-29 07:24] VITALS: BP 161/87
[2024-12-29] MEDS ORDERED: PredniSONE 20 MG Tab PO SCH (09:00)
[2024-12-29] MEDS ORDERED: Metoprolol Succinate 50 MG TABCR PO SCH (09:00)
[2024-12-29 11:46] VITALS: BP 106/95
[2024-12-29] MEDS ORDERED: PRED20 PO (11:55)
[2024-12-29] MEDS ORDERED: METO50ER PO (11:55)
[2024-12-29] MEDS ORDERED: AZIT500 PO (11:56)
[2024-12-29] MEDS ORDERED: CEFP200 PO (11:57)
--- NOTE | 2024-12-29 13:06 | NUR ---
DISCHARGE NOTE: PATIENT WAS DISCHARGED AND LEFT VIA WHEELCHAIR. SON TO STILL OPERATOR AT THE FRONT ENTRANCE. WENT OVER DISCHARGE WITH PRIMARY RN. PATIENT HAD ALL PERSONAL BELONGINGS, IV & TELE REMOVED.
[2024-12-29] MEDS ORDERED: Lisinopril 10 MG Tab PO SCH (21:00)
[2024-12-29] MEDS ORDERED: Docusate Sodium 100 MG Cap PO SCH (21:00)
== END 2024-12-29 13:01 | disposition home health service (06) | DRG 193 ==
LOC: ER 11:03 → ICUE 14:41 → PCU 16:02 → ICUE 16:05 → PCU 12-27 14:10
PROVIDERS: Emergency Medicine; Family Medicine; Internal Medicine; ADMIT Hospitalist
PROC: 5A09357 Assistance with Respiratory Ventilation, Less than 24 Consecutive Hours, Continuous Positive Airway Pressure (ICD-10-PCS; principal; 2024-12-26)
PROC: 3E03329 Introduction of Other Anti-infective into Peripheral Vein, Percutaneous Approach (ICD-10-PCS; 2024-12-26)
DX: J15.9 Unspecified bacterial pneumonia (principal); A41.9 Sepsis, unspecified organism; J96.21 Acute and chronic respiratory failure with hypoxia; J96.22 Acute and chronic respiratory failure with hypercapnia; J44.1 Chronic obstructive pulmonary disease with (acute) exacerbation; F11.20 Opioid dependence, uncomplicated; E11.9 Type 2 diabetes mellitus without complications; G89.4 Chronic pain syndrome; Z99.81 Dependence on supplemental oxygen; I10 Essential (primary) hypertension; E78.5 Hyperlipidemia, unspecified; I25.10 Atherosclerotic heart disease of native coronary artery without angina pectoris; M10.9 Gout, unspecified; Z91.030 Bee allergy status; Z79.899 Other long term (current) drug therapy; Z98.51 Tubal ligation status; Z98.890 Other specified postprocedural states; Z86.16 Personal history of COVID-19; Z87.891 Personal history of nicotine dependence; Z79.82 Long term (current) use of aspirin
CPT/HCPCS: 0241U; 36415; 71045; 80053; 82803; 82947; 83605; 83735; 83880; 84484; 85025; 87040; 93005; 93010; 93306; 94640; 94644; 94660; 94664; 94762; 96365; 96366; 96367; 96368; 97110; 97116; 97161; 99285-25; A9270; J0456; J0696; J1650; J2060; J2270; J2919; J3475; J7030; J7050; J7512

== ENCOUNTER 2025-06-25 20:33 | Inpatient (IN) | payer MEDICARE ==
[~2025-06-25] VITALS: Ht 162.6 cm; Wt 73.9 kg
[~2025-06-25 20:33] MED LIST changes: +FLUT1DIS5 INH; +METO50ER PO
[2025-06-25] MEDS ORDERED: NS 1,000 ML IV SCH (20:55)
[2025-06-25] MEDS ORDERED: CefTRIAXone Sodium 1,000 MG in NS 100 ML IV ONE (21:00)
[2025-06-25 21:02] LABS: BASOPHILS ABSOLUTE AUTO 0.02 K/mm3 (0.00-0.23); BASOPHILS PERCENT AUTO 0 % (0-2); EOSINOPHILS ABSOLUTE AUTO 0.04 K/mm3 (0.00-0.68); EOSINOPHILS PERCENT AUTO 0 % (0-6); Hematocrit 34.7 % (33.0-51.0); Hemoglobin 11.5 g/dL (11.5-16.0); IMMATURE GRAN ABSOLUTE AUTO 0.04 K/mm3 (0.00-0.10); IMMATURE GRAN PERCENT AUTO 0 % (0-1); LYMPHOCYTES ABSOLUTE AUTO 0.68 K/mm3 (0.84-5.20); LYMPHOCYTES PERCENT AUTO 6 % (21-46); MONOCYTES ABSOLUTE AUTO 0.97 K/mm3 (0.16-1.47); MONOCYTES PERCENT AUTO 8 % (4-13); Mean Corpuscular HGB Conc 33.1 g/dL (31.5-36.5); Mean Corpuscular Volume 83 fL (80-100); NEUTROPHILS ABSOLUTE AUTO 10.35 K/mm3 (1.96-9.15); NEUTROPHILS PERCENT AUTO 86 % (41-73); NRBC ABSOLUTE 0.00 K/mm3 (0.00-0.02); NRBC Auto 0.0 /100 WBC (0.0-0.2); Platelet Count 247 K/mm3 (150-400); RDW Coefficient Variation 14.3 % (11.7-14.2); RDW Standard Deviation 43.1 fL (35.1-46.3)
[2025-06-25 21:19] LABS: Alanine Aminotransfer (ALT/SGP 16.0 U/L (12-78); Albumin, Blood 2.5 g/dL (3.4-5.0); Albumin/Globulin Ratio 0.6 (0.8-1.8); Anion Gap 10.0 mmol/L (3-11); Aspartate Aminotrans (AST/SGOT 18.0 U/L (12-37); Bilirubin, Total 0.3 mg/dL (0.1-1.0); Blood Urea Nitrogen 42.0 mg/dL (8-24); CO2, Blood 28.0 mmol/L (21-32); Calcium, Blood 8.9 mg/dL (8.5-10.1); Chloride, Blood 95.0 mmol/L (98-108); Creatinine, Blood 1.86 mg/dL (0.40-1.00); Globulin, Blood 4.3 g/dL (2.2-4.0); Glucose, Blood 190.0 mg/dL (70-99); Potassium, Blood 4.6 mmol/L (3.5-5.5); Sodium, Blood 128.0 mmol/L (136-145); Total Protein, Blood 6.8 g/dL (6.4-8.2)
[2025-06-25 21:40] LABS: Source, Urine Fem Cath
[2025-06-25 21:44] LABS: Bilirubin, Urine Neg (Neg); Glucose Qualitative, Urine Neg (Neg); Ketones, Urine Neg (Neg); Leukocyte Esterase, Urine 3+ (Neg); Protein, Urine 3+ (Neg); Specific Gravity, Urine 1.025 (1.003-1.022); Urobilinogen, Urine NORM (Normal)
[2025-06-25 21:48] LABS: Color, Urine Yellow (P-Yellow)
[2025-06-25 21:51] LABS: White Blood Cells, Urine TNTC /hpf (0-5)
[2025-06-25] MEDS ORDERED: FLU VACC TS2025(65UP)/MF59C/PF 45 MCG/0.5 ML SYRINGE IM SCH (23:45)
[2025-06-25] MEDS ORDERED: NS 1,000 ML IV ONE (23:46)
[2025-06-26] VITALS (43 sets, daily range): BP systolic 75–170; BP diastolic 48–599
[2025-06-26] MEDS ORDERED: CefTRIAXone Sodium 1,000 MG in NS 100 ML IV ONE (01:00)
[2025-06-26] MEDS ORDERED: Ipratropium/Albuterol SulF 2.5-0.5MG/3 ML Amp INH SCH ×2 (01:00→01:10)
[2025-06-26] MEDS ORDERED: NS 500 ML IV SCH (01:00)
[2025-06-26] MEDS ORDERED: NS 1,000 ML IV ONE ×2 (01:04)
[2025-06-26 05:24] LABS: BASOPHILS ABSOLUTE AUTO 0.01 K/mm3 (0.00-0.23); BASOPHILS PERCENT AUTO 0 % (0-2); EOSINOPHILS ABSOLUTE AUTO 0.01 K/mm3 (0.00-0.68); EOSINOPHILS PERCENT AUTO 0 % (0-6); Hematocrit 33.5 % (33.0-51.0); Hemoglobin 10.5 g/dL (11.5-16.0); IMMATURE GRAN ABSOLUTE AUTO 0.05 K/mm3 (0.00-0.10); IMMATURE GRAN PERCENT AUTO 1 % (0-1); LYMPHOCYTES ABSOLUTE AUTO 0.35 K/mm3 (0.84-5.20); LYMPHOCYTES PERCENT AUTO 4 % (21-46); MONOCYTES ABSOLUTE AUTO 0.28 K/mm3 (0.16-1.47); MONOCYTES PERCENT AUTO 3 % (4-13); Mean Corpuscular HGB Conc 31.3 g/dL (31.5-36.5); Mean Corpuscular Volume 85 fL (80-100); NEUTROPHILS ABSOLUTE AUTO 9.01 K/mm3 (1.96-9.15); NEUTROPHILS PERCENT AUTO 93 % (41-73); NRBC ABSOLUTE 0.00 K/mm3 (0.00-0.02); NRBC Auto 0.0 /100 WBC (0.0-0.2); Platelet Count 227 K/mm3 (150-400); RDW Coefficient Variation 14.3 % (11.7-14.2); RDW Standard Deviation 44.9 fL (35.1-46.3)
[2025-06-26 06:28] LABS: Alanine Aminotransfer (ALT/SGP 13.0 U/L (12-78); Albumin, Blood 2.1 g/dL (3.4-5.0); Albumin/Globulin Ratio 0.5 (0.8-1.8); Anion Gap 7.0 mmol/L (3-11); Aspartate Aminotrans (AST/SGOT 21.0 U/L (12-37); Bilirubin, Total 0.2 mg/dL (0.1-1.0); Blood Urea Nitrogen 34.0 mg/dL (8-24); CO2, Blood 24.0 mmol/L (21-32); Calcium, Blood 8.1 mg/dL (8.5-10.1); Chloride, Blood 104.0 mmol/L (98-108); Creatinine, Blood 1.45 mg/dL (0.40-1.00); Globulin, Blood 3.9 g/dL (2.2-4.0); Glucose, Blood 165.0 mg/dL (70-99); Potassium, Blood 4.7 mmol/L (3.5-5.5); Sodium, Blood 130.0 mmol/L (136-145); Total Protein, Blood 6.0 g/dL (6.4-8.2)
[2025-06-26] MEDS ORDERED: Insulin Human Lispro 100 Units/ML 3ML Syringe SC SCH ×2 (07:30→11:30)
--- NOTE | 2025-06-26 08:06 | NUR ---
ASSUMPTION OF CARE/TRANSFER NOTE THIS RN ASSUMED CARE AT APPROX 0715. PATIENT LETHARGIC - AROUSABLE W/ NOXIOUS STIMULI BEFORE FALLING BACK TO SLEEP. ANSWERING SIMPLE QUESTIONS W/ YES/NO BEFORE FALLING BACK TO SLEEP. TELEMETRY SHOWING SR 70s-80s. BP SOFT - SBP 70s-80s, MAP >55. IVF INFUSING PER EMAR. DOSE OF PO MIDODRINE ADMINISTERED PRIOR TO ASSUMPTION OF CARE. MD STALLWORTH NOTIFIED - ORDER RECEIVED FOR ICU TRANSFER FOR FURTHER MANAGEMENT. PATIENT ON BASELINE 2L VIA NC - SATs >90%. RR SHALLOW. BLADDER SCAN PERFORMED SHOWING >400ML - ORDER RECEIVED JUAREZ INSERTION FOR STRICT I/Os. REPORT GIVEN TO POSTAL SUPERINTENDENT TO ASSUME CARE. PERSONAL BELONGINGS W/ PATIENT.
[2025-06-26] MEDS ORDERED: Heparin Sodium,Porcine 5,000 UNIT/0.5 ML SDV SC SCH (09:00)
[2025-06-26] MEDS ORDERED: Lactobacil 2-S.Thermo-Bifido 1 1 Cap PO SCH (09:00)
--- NOTE | 2025-06-26 09:34 | NUR ---
ASSUMED CARE OF PT AT 0800, PT TRANSFERD FROM PCU. PT IS ALERT AND ORIENTED X 4, ABLE TO FOLLOW COMMANDS AND COMMUNICATE NEEDS. PT REMAINS ON 2L OF OXYGEN VIA NC, WHEEZING IN UPPER LOBES NOTED, BREATHING TX INITIATED. PT IN SR WITH HR IN THE 70'S, MAP 60, LEVOPHED INITIATED AT 2MCG/MIN. PT UP IN HIGH FOWLERS POSITION, EATING. JUAREZ PATENT, DRAINING TO GRAVITY, ABMBER COLOR URINE NOTED. SON AT BEDSIDE.
[2025-06-26] MEDS ORDERED: FentaNYL Citrate 50 MCG/ML 2 ML Injection IV PRN (12:15)
[2025-06-26 15:33] LABS: U Amphetamine Screen Not Detected; U Barbituate Screen Not Detected; U Benzodiazapine Screen Not Detected; U Buprenorphine Screen Not Detected; U Cannabinoids Screen Not Detected; U Cocaine Screen Not Detected; U Methadone Screen Not Detected; U Methamphetamine Screen Not Detected; U Opiates Screen DETECTED; U Oxycodone Screen Not Detected; U Phencyclidine Screen Not Detected
--- NOTE | 2025-06-26 18:15 | NUR ---
SHIFT SUMMRAY: PT IS A&O X 4, ABLE TO COMMUNICATE NEEDS. PT C/O BACK PAIN/R ARM PAIN (CHRONIC) PRN FENTANYL GIVEN PER MAR WITH GOOD EFFECT. PT REMAINS ON 2L OF OXYGEN VIA NC, SPO2 ABOVE 92% NO RESP DISTRESS NOTED. PT IN SR WITH HR IN THE 80-90'S, BP STABLE, LEVOPHED OFF SINCE 1244, MAPS ABOVE 65. JUAREZ PATENT, DRAINING TO GRAVITY, SEDIMENT NOTED, 1100ML OF URINE OBTAINED FOR SHIFT. PT REPOSITIONED Q2HRS. PLAN OF CARE ONGOING. CALL LIGHT WITHIN REACH
--- NOTE | 2025-06-26 19:00 | NUR ---
ASSUMPTION OF CARE CARE OF PT ASSUMED FOLLOWING BEDSIDE SHIFT REPORT FROM DAY RN. PT IN NO APPARENT DISTRESS. ALERT AND ORIENTED TO ALL. TEMP 98.7 F. PT IS IN PAIN 04/17 IN BACK. WILL MEDICATE PER DEC. SINUS TACH 100-130 WITH STABLE TO MILDLY ELEVATED BP. PT DENIES CHEST PAIN/PRESSURE OR SOB. PT IN ROOM TO GIVE BREATHING TREATMENT. PT ON 2L NC WITH SATURATION > 90%. LUNGS DIMINISHED AND COARSE. PT DENIES AB PAIN, N/V. JUAREZ IN PLACE AND PATENT WITH YELLOW URINE OUTPUT. LR INFUSING AT 100ML/HR. WILL REVIEW AND CONTINUE PLAN OF CARE.
[2025-06-26] MEDS ORDERED: Insulin Glargine 100 Unit/ML 3 ML SYR SC SCH (21:00)
[2025-06-26] MEDS ORDERED: CefTRIAXone Sodium 2,000 MG in NS 100 ML IV SCH (21:00)
[2025-06-26] MEDS ORDERED: Metoclopramide HCl 5MG / ML 2ML Vial IV PRN (23:40)
[2025-06-27] VITALS (22 sets, daily range): BP systolic 116–178; BP diastolic 65–160
[2025-06-27] MEDS ORDERED: Mag Hydrox/Al Hydrox/Simeth 18 ML,Lidocaine 2% Viscous Soln 9 ML,Atropine/Scopalam/Hyos... PO ONE (02:00)
[2025-06-27 02:14] LABS: BASOPHILS ABSOLUTE AUTO 0.03 K/mm3 (0.00-0.23); BASOPHILS PERCENT AUTO 0 % (0-2); EOSINOPHILS ABSOLUTE AUTO 0.01 K/mm3 (0.00-0.68); EOSINOPHILS PERCENT AUTO 0 % (0-6); Hematocrit 39.7 % (33.0-51.0); Hemoglobin 13.2 g/dL (11.5-16.0); IMMATURE GRAN ABSOLUTE AUTO 0.13 K/mm3 (0.00-0.10); IMMATURE GRAN PERCENT AUTO 1 % (0-1); LYMPHOCYTES ABSOLUTE AUTO 1.19 K/mm3 (0.84-5.20); LYMPHOCYTES PERCENT AUTO 6 % (21-46); MONOCYTES ABSOLUTE AUTO 1.09 K/mm3 (0.16-1.47); MONOCYTES PERCENT AUTO 6 % (4-13); Mean Corpuscular HGB Conc 33.2 g/dL (31.5-36.5); Mean Corpuscular Volume 83 fL (80-100); NEUTROPHILS ABSOLUTE AUTO 16.15 K/mm3 (1.96-9.15); NEUTROPHILS PERCENT AUTO 87 % (41-73); NRBC ABSOLUTE 0.00 K/mm3 (0.00-0.02); NRBC Auto 0.0 /100 WBC (0.0-0.2); Platelet Count 343 K/mm3 (150-400); RDW Coefficient Variation 14.1 % (11.7-14.2); RDW Standard Deviation 43.0 fL (35.1-46.3)
[2025-06-27 02:20] LABS: Anion Gap 9.0 mmol/L (3-11); Blood Urea Nitrogen 29.0 mg/dL (8-24); CO2, Blood 29.0 mmol/L (21-32); Calcium, Blood 9.1 mg/dL (8.5-10.1); Chloride, Blood 98.0 mmol/L (98-108); Creatinine, Blood 0.89 mg/dL (0.40-1.00); Glucose, Blood 154.0 mg/dL (70-99); Magnesium, Blood 1.9 mg/dL (1.6-2.4); Potassium, Blood 4.1 mmol/L (3.5-5.5); Sodium, Blood 132.0 mmol/L (136-145)
[2025-06-27] MEDS ORDERED: Prochlorperazine Edisylate 10 mg Vial IV PRN (03:05)
[2025-06-27] MEDS ORDERED: LORazepam 2 MG/ML 1ML Injection IV ONE (03:25)
[2025-06-27] MEDS ORDERED: Ondansetron HCl 2 MG / ML 2ML Vial IV PRN (03:34)
--- NOTE | 2025-06-27 04:59 | NUR ---
SHIFT SUMMARY PT SLEEPING AWAKES TO VOICE. PT HAD DIFFICULT NIGHT DUE TO NAUSEA/VOMITING/DRY HEAVES AND HEARTBURN. THE N/V STARTED SHORTLY AFTER CONSUMING A CANDY TYPE ROLAID PROVIDED, UNKNOWINGLY BY STAFF, BY THE PT'S DAUGHTER. ZOFRAN DECREASED NAUSEA FOR AN HOUR BEFORE IT RETURNED AND DID NOT RESPOND TO REGLAN OR GI COCKTAIL. ORDER FOR AN ECG WAS OBTAINED TO RULE OUT CARDIAC CAUSES AND THIS ECG SHOWED SINUS TACH WITH MANY PVC'S. AN ORDER FOR ATIVAN X 1 WAS OBTAINED AROUND 0330 AND THIS WAS ADMINISTERED WITH A SECOND DOSE OF ZOFRAN. THE PT FINALLY WENT TO SLEEP, THOUGH IT IS UNCLEAR IF THE NAUSEA DECREASED OR THE ATIVAN RELAXED HER JUST ENOUGH TO START SLEEPING. PT STARTED EVENING WITH TEMP OF 98.7 VIA TEMPORAL PROBE, BUT THIS DECREASED. PT STAYED IN SINUS TACH WITH MULTIPLE PVC'S ALL SHIFT AND BP WAS STABLE TO ELEVATED, WITH A MAX SBP OF 180 AND AVERAGE OF 150. PT ON 2L NC AT START OF SHIFT AND INCREASED TO 3L NC AFTER ADMIN OF ATIVAN. PT NEVER COMPLAINED OF CHEST PAIN/PRESSURE, SOB, AB PAIN. NO BM. JUAREZ IN PLACE DRAINING MALIA URINE TO GRAVITY. OUPUT OF 550 ALL SHIFT. LR INFUSING AT 100ML/HR. MAGNESIUM WAS 1.9 WITH MORNING LABS AND IS BEING REPLACED. BEDSIDE SHIFT REPORT GIVEN TO SHAINA DAY RN.
[2025-06-27] MEDS ORDERED: FentaNYL Citrate 50 MCG/ML 2 ML Injection IV PRN (10:10)
[2025-06-27] MEDS ORDERED: MetroNIDAZOLE 500MG/NS 100 ml 100 ML IV SCH (14:00)
[2025-06-27] MEDS ORDERED: Metoprolol Tartrate 1 MG/ML 5 ML VIAL IV PRN (14:00)
[2025-06-27] MEDS ORDERED: Formoterol/Mometasone MDI 5/200 mcg 13 GM INH SCH (14:05)
[2025-06-27] MEDS ORDERED: Ipratropium/Albuterol SulF 2.5-0.5MG/3 ML Amp INH PRN (14:35)
[2025-06-27] MEDS ORDERED: Pantoprazole Sodium 40 MG Injection IV SCH (16:30)
[2025-06-27] MEDS ORDERED: Insulin Regular 100 UNIT/ML 10ML Vial SC SCH (16:30)
--- NOTE | 2025-06-27 18:37 | NUR ---
Summary. Pt rested in bed this shift. Somnolent but arousable. Pt condition changed from yesterday. After conversation and permission from patient's son to go through her purse, extended release morphine found in OTC stool softener bottle. Meds taken from patient purse and secured in medication lockbox in room, family updated. No acute events this shift, see chart for further details.
[2025-06-27 20:08] LABS: pH Blood Venous 7.33 (7.34-7.37)
[2025-06-27] MEDS ORDERED: NS 250 ML IV PRN (20:30)
[2025-06-28] VITALS (62 sets, daily range): BP systolic 100–175; BP diastolic 48–119
[2025-06-28] MEDS ORDERED: LORazepam 2 MG/ML 1ML Injection IV ONE (00:10)
--- NOTE | 2025-06-28 00:16 | NUR ---
ASSUMPTION OF CARE NOTE: ASSUMED CARE OF PT ON 06/27/25 AT 1900 PT IS RELAXING IN BED W/CALL LIGHT IN REACH. PT IS ON NC ON 3L OF AND SATS AT 88-90%. SBP'S IN THE 140'S. PT CONTINUES TO REMOVE OXYGEN OFTEN EVEN WHEN EDUCATED ON THE IMPORTANCE OF WEARING AND KEEPING HER OXYGEN ON. PT REFUSES TO WEAR BIPAP. PT HAS BEEN TACHYCARDIC IN 110'S. JUAREZ PATENT AND DRAINING TO GRAVITY. PATENT PIV TO LFA AND RFA. PT IS A&OX4 AND ABLE TO ANSWER QUESTIONS. PT HAS BED LOW AND LOCKED FOR SAFETY.
[2025-06-28] MEDS ORDERED: LORazepam 2 MG/ML 1ML Injection ONE (00:24)
--- NOTE | 2025-06-28 02:43 | NUR ---
HOSPITALIST CALLED AT 0130 TO INFORM DOCTOR OF PT'S HTN AND PT RESTLESS PULLING OFF BIPAP AND PULLING AT LINES. RASS +1. [place] REFUSES TO KEEP ON BIPAP OR OXY MASK AND DESATS DOWN TO 86%. DOCTOR ORDERED BUE SOFT RESTRAINTS AND TO START PRECEDEX DRIP. DOCTOR SAID NO INTERVENTIONS AT THIS TIME FOR HTN UNLESS IF SBP IS 190 OR GREATER.
[2025-06-28 03:41] LABS: BASOPHILS ABSOLUTE AUTO 0.02 K/mm3 (0.00-0.23); BASOPHILS PERCENT AUTO 0 % (0-2); EOSINOPHILS ABSOLUTE AUTO 0.00 K/mm3 (0.00-0.68); EOSINOPHILS PERCENT AUTO 0 % (0-6); Hematocrit 40.3 % (33.0-51.0); Hemoglobin 13.1 g/dL (11.5-16.0); IMMATURE GRAN ABSOLUTE AUTO 0.12 K/mm3 (0.00-0.10); IMMATURE GRAN PERCENT AUTO 1 % (0-1); LYMPHOCYTES ABSOLUTE AUTO 1.14 K/mm3 (0.84-5.20); LYMPHOCYTES PERCENT AUTO 7 % (21-46); MONOCYTES ABSOLUTE AUTO 1.01 K/mm3 (0.16-1.47); MONOCYTES PERCENT AUTO 6 % (4-13); Mean Corpuscular HGB Conc 32.5 g/dL (31.5-36.5); Mean Corpuscular Volume 85 fL (80-100); NEUTROPHILS ABSOLUTE AUTO 13.67 K/mm3 (1.96-9.15); NEUTROPHILS PERCENT AUTO 86 % (41-73); NRBC ABSOLUTE 0.00 K/mm3 (0.00-0.02); NRBC Auto 0.0 /100 WBC (0.0-0.2); Platelet Count 374 K/mm3 (150-400); RDW Coefficient Variation 14.5 % (11.7-14.2); RDW Standard Deviation 44.8 fL (35.1-46.3)
[2025-06-28 04:04] LABS: Anion Gap 6.0 mmol/L (3-11); Blood Urea Nitrogen 23.0 mg/dL (8-24); CO2, Blood 33.0 mmol/L (21-32); Calcium, Blood 9.4 mg/dL (8.5-10.1); Chloride, Blood 101.0 mmol/L (98-108); Creatinine, Blood 0.74 mg/dL (0.40-1.00); Glucose, Blood 143.0 mg/dL (70-99); Potassium, Blood 4.7 mmol/L (3.5-5.5); Sodium, Blood 135.0 mmol/L (136-145)
[2025-06-28] MEDS ORDERED: Ipratropium/Albuterol SulF 2.5-0.5MG/3 ML Amp INH SCH (04:50)
--- NOTE | 2025-06-28 05:50 | NUR ---
SHIFT SUMM: PT IS RELAXING IN BED WITH 0.2 PRECEDEX INFUSING. PT STILL HAS PATENT PIV TO LFA AND RFA. PT HAS PATENT JUAREZ DRAINING TO GRAVITY. HAD TO OBTAIN AN ORDER FOR BUE SOFT RESTRAINTS DUE TO PT REFUSING TO WEAR BIPAP AND OXY MASK AND PULLING AT LINES AND UNCOOPERATIVE W/CARE. PT WOULD DESAT DOWN TO 86% WHEN REMOVING BIPAP AND WAS EDUCATED ON THE IMPORTANCE OF KEEPING MASK ON. PT WAS A&O X4 AT BEGINNING OF SHIFT AND THEN STARTED TO HAVE MORE CONFUSION. PT'S HR HAS BEEN TACHY AND HYPERTENSIVE BP THIS SHIFT (DOCTOR NOTIFIED). PT HAD A BED BATH AND LINEN CHANGED THIS SHIFT. CALL LIGHT IN REACH AND BED LOW AND LOCKED
[2025-06-28 10:56] LABS: pH Blood Venous 7.42 (7.34-7.37)
--- NOTE | 2025-06-28 15:00 | NUR ---
PROVIDER CONTACT: THIS RN NOTIFIED THAT PT FED JELLO BY FAMILY MEMBER. PT NOTED TO BE COUGHING W/ O2 SATURATION TO LOW-90'S ON NASAL CANNULA. HR 120-130'S, UP TO 170'S INTERMITTENTLY. LUNG SOUNDS COARSE THROUGHOUT, PT W/ HOARSE VOICE. THIS RN PLACED CALL TO DR. STALLWORTH; ORDERS RECEIVED FOR NPO STATUS, ADMINISTRATION OF IV LOPRESSOR PER EMAR. ADVISED DR. STALLWORTH THAT PT IS NOT TOLERATING BIPAP, CONTINUES PULLING IT OFF AND YELLING "GET IT OFF". NASAL CANNULA IN PLACE.
--- NOTE | 2025-06-28 17:26 | NUR ---
END OF SHIFT NOTE: NO ACUTE EVENTS THIS SHIFT. PT DROWSY, ORIENTED X3-4. INTERMITTENTLY ANXIOUS, PULLING AT BIPAP/NASAL CANNULA, LINES, CORDS. PRECEDEX GTT INFUSING PER EMAR, SEE FLOWSHEET FOR TITRATIONS. HR 90-110'S, UP TO 170'S INTERMITTENTLY; SINUS TACH ON MONITOR. SBP 100-140'S, MAP >65. SPO2 >90% ON 3L VIA NC, BIPAP TOLERATED. DESATURATES TO 80'S WHEN O2 IS REMOVED. AFEBRILE. JUAREZ CATH PATENT & DRAINING YELLOW URINE TO GRAVITY, SEDIMENT NOTED. NO BM'S. NPO AT THIS TIME DUE TO CONCERN FOR ASPIRATION. PT RESTING IN BED AT THIS TIME, CALL LIGHT IN REACH.
[2025-06-29] VITALS (21 sets, daily range): BP systolic 99–174; BP diastolic 59–156
[2025-06-29] MEDS ORDERED: Insulin Regular 100 UNIT/ML 10ML Vial SC SCH
--- NOTE | 2025-06-29 02:23 | NUR ---
PTS WORK OF BREATHING IS INCREASED WITH COARSE/WHEEZY LUNG SOUNDS. SHE CONTINUES TO REFUSE BIPAP DESPITE EDUCATION ON THE NEED FOR IT AT THIS TIME.
--- NOTE | 2025-06-29 02:46 | NUR ---
PT PULLED OFF OXYGEN AND WAS ATTEMPTING TO GET OUT OF BED. PT WAS DYSPNEIC AND TACHYPNEIC. I PUT HER OXYGEN BACK ON HER AND SAT HER UP FAR I COULD BUT INCREASED WORK OF BREATHING CONTINUED AND SHE DESTURATED TO THE 60'S AND LOC WAS ALTERED. CPAP WAS PUT ON THE PATIENT, WITH SOME TIME LOC AND SPO2 IMPROVED. RT CALLED. SOON PATIENT BECAME ALERT AGAIN SHE WAS PULLING THE MASK BACK OFF. RESTRAINTS WERE RESTARTED. PT HAS SAID SEVERAL TIMES SINCE THEN THAT SHE DOES NOT WANT ALL OF THIS, DOES NOT CARE IF SHE STOPS BREATHING, DOES NOT WANT TO CONTINUE TO LIVE. WE DISCUSSED THAT PT IS A FULL CODE AND WHAT THAT MEANS AND SHE SAID THAT SHE DOES NOT WANT THAT ANYMORE.
--- NOTE | 2025-06-29 05:34 | NUR ---
SHIFT SUMM: PT HAS BEEN ON 3L NC AND HAS REFUSED TO WEAR BIPAP MOST OF SHIFT AND EDUCATION HAS BEEN GIVEN. AT 0230 PT DESAT AND HAD TO WEAR BIPAP AND RESTRAINTS HAD TO BE PLACED ON BUE TO PREVENT PT FROM PULLING OFF OXYGEN AND ATTEMPTING TO GET OUT OF BED ON HER OWN. PT HAS PATENT PIV TO LFA AND RFA. PATENT JUAREZ DRAINING TO GRAVITY W/YELLOW URINE. PT HAS CALL LIGHT IN REACH AND BED LOW AND LOCKED.
[2025-06-29 07:37] LABS: BASOPHILS ABSOLUTE AUTO 0.01 K/mm3 (0.00-0.23); BASOPHILS PERCENT AUTO 0 % (0-2); EOSINOPHILS ABSOLUTE AUTO 0.06 K/mm3 (0.00-0.68); EOSINOPHILS PERCENT AUTO 1 % (0-6); Hematocrit 35.7 % (33.0-51.0); Hemoglobin 11.4 g/dL (11.5-16.0); IMMATURE GRAN ABSOLUTE AUTO 0.06 K/mm3 (0.00-0.10); IMMATURE GRAN PERCENT AUTO 1 % (0-1); LYMPHOCYTES ABSOLUTE AUTO 1.25 K/mm3 (0.84-5.20); LYMPHOCYTES PERCENT AUTO 13 % (21-46); MONOCYTES ABSOLUTE AUTO 0.73 K/mm3 (0.16-1.47); MONOCYTES PERCENT AUTO 8 % (4-13); Mean Corpuscular HGB Conc 31.9 g/dL (31.5-36.5); Mean Corpuscular Volume 86 fL (80-100); NEUTROPHILS ABSOLUTE AUTO 7.28 K/mm3 (1.96-9.15); NEUTROPHILS PERCENT AUTO 78 % (41-73); NRBC ABSOLUTE 0.00 K/mm3 (0.00-0.02); NRBC Auto 0.0 /100 WBC (0.0-0.2); Platelet Count 267 K/mm3 (150-400); RDW Coefficient Variation 14.2 % (11.7-14.2); RDW Standard Deviation 44.8 fL (35.1-46.3)
[2025-06-29 07:50] LABS: Anion Gap 6.0 mmol/L (3-11); Blood Urea Nitrogen 21.0 mg/dL (8-24); CO2, Blood 35.0 mmol/L (21-32); Calcium, Blood 8.7 mg/dL (8.5-10.1); Chloride, Blood 102.0 mmol/L (98-108); Creatinine, Blood 0.63 mg/dL (0.40-1.00); Glucose, Blood 112.0 mg/dL (70-99); Potassium, Blood 4.1 mmol/L (3.5-5.5); Sodium, Blood 139.0 mmol/L (136-145)
--- NOTE | 2025-06-29 10:41 | NUR ---
AM NOTE: THIS RN ASSUMED CARE OF PT AT APPROX 0700.
--- NOTE | 2025-06-29 12:46 | NUR ---
CODE STATUS: THIS RN AT PT'S BEDSIDE. PT ALERT, SITTING UP IN CHAIR, ORIENTED X4. THIS RN DISCUSSED PT'S TREATMENT W/ BIPAP, PT STATES "I AM NOT GOING TO WEAR THAT, IF IT'S MY TIME LET ME GO." DISCUSSED CPR/INTUBATION W/ PT; PT VERY FIRM WHEN STATING SHE WOULD NOT WANT TO BE ON A VENTILATOR OR "HAVE RIBS BROKEN" FROM CPR. DISCUSSED DNR STATUS, PT REPORTS THAT SHE WOULD LIKE TO BE DNR RATHER THAN FULL CODE. PT STATES SON, OLIVERIO, IS POWER OF ROENTGENOLOGIST. PT REQUESTS THIS RN SPEAK WITH OLIVERIO REGARDING WISHES. CALL TO DR. STALLWORTH, ORDER RECEIVED FOR DNR STATUS. AWAITING CALL BACK FROM PALLIATIVE CARE RN TO DISCUSS COMPLETING A POLST.
[2025-06-29] MEDS ORDERED: LORazepam 2 MG/ML 1ML Injection ONE (17:43)
[2025-06-29] MEDS ORDERED: LORazepam 2 MG/ML 1ML Injection IV ONE (17:45)
[2025-06-29 17:50] LABS: pH Blood Venous 7.35 (7.34-7.37)
--- NOTE | 2025-06-29 18:25 | NUR ---
PALLIATIVE CARE VISIT: WHILE ATTEMPTING TO MAKE VISIT WITH PT, PT IS IN RESPIRATORY DISTRESS. SHE IS A/O X 4, AND REFUSING TO WEAR BIPAP MASK. SHE HAS OXIMASK ON, SATS ARE 100% BUT SHE IS STILL TACHYPNIC, USING ACCESSORY MUSCLES TO BREATH AND VERY DIAPHORETIC. BP IS ELEVATED AND HR 129. SHE IS YELLING "JUST LET ME GO". PT IS DNR. POLST FOUND ON FILE THROUGH POLST REGISTRY STATES DNR, LIMITED MEASURES. PT IS AGREEABLE TO COMFORT CARE. PRIMARY RN CALLED AGUSTO DURON TO NOTIFY HIM OF PT CHOICE. PRIMARY RN CALLED DR. STALLWORTH FOR COMFORT CARE ORDERS. PER RN, DR. STALLWORTH ORDERED PT TO KEEP BIPAP ON. NO NEW ORDERS. EXPLAINED TO PT DR. STALLWORTH DOES NOT WANT COMFORT CARE SINCE LABS WERE IMPROVING AND SHE NEEDED TO WEAR BIPAP. PT ATTEMPTED TO WEAR AGAIN BUT DID NOT TOLERATE IT AND REMOVED MASK. ATTEMPTED TO USE FAN, COOL WASH CLOTH, EMOTIONAL AND MORAL SUPPORT TO HELP PT CALM WHICH WERE ALL UNSUCCESSFUL. AT 1720 NIGHT PROVIDER WAS NOTIFIED OF CONCERNS PT CONTINUED TO REFUSE BIPAP. HE ORDERED VBG ABD ATIVAN TO BE GIVEN. AGUSTO DURON ARRIVED AND EXPLAINED CONCERNS TO HIM. HE WAS AGREEABLE TO ATIVAN BEING GIVEN. ONCE ATIVAN GIVEN PT BECAME MUCH CALMER, HR AND BP IMPROVED. SHE WAS ABLE TO TOLERATE BIPAP. PT VBG RESULTS CONFIRMED SHE NEEDS TO WEAR BIPAP.
--- NOTE | 2025-06-29 18:28 | NUR ---
END OF SHIFT NOTE: PT TITRATED OFF PRECEDEX GTT EARLIER THIS SHIFT, WAS ALERT, ORIENTED X4, CALM. SPO2 >90% ON 3-5L VIA NC. AT APPROX 1600, RN TO BEDSIDE DUE TO DESATURATION INTO 70-80'S ON NASAL CANNULA. PT TACHYPNEIC, TACHYCARDIC; TRIPOD POSITION & CIRCUMORAL CYANOSIS NOTED. PT PLACED ON BIPAP FOR RESCUE. PT YELLING INTO MASK "GET THIS OFF ME". EDUCATION PROVIDED EXTENSIVELY ON USE OF BIPAP; PT CONTINUES TO YELL "I DON'T WANT IT, JUST LET ME ". HOSE OPERATOR TO BEDSIDE. CALL TO DR. STALLWORTH, ORDERS RECEIVED TO RESTART PRECEDEX GTT. PRECEDEX GTT INFUSING, PT REMAINS TACHYPNEIC/DIAPHORETIC. MOTTLING TO MARY SANCHEZ. CALL PLACED TO HOSPITALISTDOUGLAS; ORDERS RECEIVED TO ADMINISTER 1MG IV ATIVAN. ATIVAN ADMINISTERED; PT ABLE TO TOLERATE BIPAP FOLLOWING MED ADMINISTRATION. PT'S SON, OLIVERIO, CALLED DURING EVENT. OLIVERIO AT BEDSIDE THIS EVENING. DR. STALLWORTH TO BEDSIDE, DISCUSSED CURRENT SITUATION W/ OLIVERIO. PLAN TO ADMINISTER IV ATIVAN NEEDED FOR ANXIETY OVERNIGHT & TRANSITION PT TO COMFORT CARE IF SHE BEGINS REFUSING BIPAP AGAIN OVERNIGHT.
[2025-06-29] MEDS ORDERED: LORazepam 2 MG/ML 1ML Injection IV PRN (18:35)
--- NOTE | 2025-06-29 19:36 | NUR ---
ASSUMPTION OF CARE: ASSUMED CARE OF PT AT 1900 PT HAS SON AT BEDSIDE AND IS CURRENTLY ON BIPAP. PT HAS PATENT PIV TO LAC & RAC. PT ALSO HAS PATENT JUAREZ DRAINING TO GRAVITY. PT HAS PRECEDEX CURRENTLY INFUSING AT 1.4 PT IS SOMULENT AND DURING REPORT WAS TOLD THAT PT HAS HAD SOME CONFUSION STARTING AROUND 1600. PT HAS CALL LIGHT IN REACH AND BED LOW AND LOCKED.
--- NOTE | 2025-06-29 20:42 | NUR ---
WHILE IN GIVING MEDS THE PT WOKE UP TEMPORARILY AND ASKED ME TO TAKE THE BIPAP OFF. NC PLACED AT 4LPM, PT TOLERATING WELL. SPO2 >95%. BREATH SOUNDS ARE AUDIBLY COARSE.
[2025-06-30] VITALS (9 sets, daily range): BP systolic 111–194; BP diastolic 58–132
--- NOTE | 2025-06-30 06:06 | NUR ---
SHIFT SUMM: PT STARTED THE SHIFT ON BIPAP AND THEN REFUSED TO WEAR IT AND HAS BEEN ON 3L NC SINCE AND MAINTAINING SATS ABOVE 95%. PT HAS BEEN RESTING THIS SHIFT AND IS UPSET THAT SHE CANNOT HAVE WATER UNTIL SPEECH EVAL IS DONE. PT HAS BEEN GIVEN SWABS TO HELP MOISTEN MOUTH WHICH HELPS. PT HAS PRECEDEX INFUSING AT 0.5 TO THE LFA AND A PATENT RFA PIV WELL. PATENT JUAREZ DRAINING TO GRAVITY. PT IS SORE ALL OVER AND DID RECIEVE A 0.5 DOSE OF ATIVAN TO HELP RELAX. PT SLEEPY BUT AROUSABLE TO NOISE AND STIMULI AND ORIENTED X2-3 WITH SOME CONFUSION AT TIMES. PT HAS CALL LIGHT IN REACH AND BED LOW AND LOCKED
[2025-06-30 07:21] LABS: BASOPHILS ABSOLUTE AUTO 0.01 K/mm3 (0.00-0.23); BASOPHILS PERCENT AUTO 0 % (0-2); EOSINOPHILS ABSOLUTE AUTO 0.13 K/mm3 (0.00-0.68); EOSINOPHILS PERCENT AUTO 2 % (0-6); Hematocrit 33.2 % (33.0-51.0); Hemoglobin 10.8 g/dL (11.5-16.0); IMMATURE GRAN ABSOLUTE AUTO 0.06 K/mm3 (0.00-0.10); IMMATURE GRAN PERCENT AUTO 1 % (0-1); LYMPHOCYTES ABSOLUTE AUTO 1.17 K/mm3 (0.84-5.20); LYMPHOCYTES PERCENT AUTO 15 % (21-46); MONOCYTES ABSOLUTE AUTO 0.48 K/mm3 (0.16-1.47); MONOCYTES PERCENT AUTO 6 % (4-13); Mean Corpuscular HGB Conc 32.5 g/dL (31.5-36.5); Mean Corpuscular Volume 85 fL (80-100); NEUTROPHILS ABSOLUTE AUTO 6.17 K/mm3 (1.96-9.15); NEUTROPHILS PERCENT AUTO 77 % (41-73); NRBC ABSOLUTE 0.00 K/mm3 (0.00-0.02); NRBC Auto 0.0 /100 WBC (0.0-0.2); Platelet Count 238 K/mm3 (150-400); RDW Coefficient Variation 14.3 % (11.7-14.2); RDW Standard Deviation 44.4 fL (35.1-46.3)
[2025-06-30 07:35] LABS: Anion Gap 6.0 mmol/L (3-11); Blood Urea Nitrogen 22.0 mg/dL (8-24); CO2, Blood 32.0 mmol/L (21-32); Calcium, Blood 8.5 mg/dL (8.5-10.1); Chloride, Blood 106.0 mmol/L (98-108); Creatinine, Blood 0.59 mg/dL (0.40-1.00); Glucose, Blood 92.0 mg/dL (70-99); Potassium, Blood 3.8 mmol/L (3.5-5.5); Sodium, Blood 140.0 mmol/L (136-145)
[2025-06-30] MEDS ORDERED: Atropine Sulfate 1% Opth Soln 2ML BTL SL PRN (08:25)
[2025-06-30] MEDS ORDERED: Morphine Sulfate 20 MG/1ML 1 ML Oral Syringe SL PRN (08:25)
[2025-06-30] MEDS ORDERED: LORazepam 2 MG/ML 1ML Injection IV PRN ×2 (08:45→09:05)
[2025-06-30] MEDS ORDERED: Morphine Sulfate 10 MG/ML 1MLSYR IV PRN (09:30)
--- NOTE | 2025-06-30 10:56 | NUR ---
I am told by nurse staff that the patient has elected for comfort care. I visit with the family and ask about emotional/spiritual needs. I am told that the patient is Jehovah Witness and would benefit from a visit from someone from their taoism. I call Vaibhav Gilbret, from the [facility] [employer]. He stated that he would contact the appropriate person and that they would send someone over ANAYELI. I will continue to remain available to the patient and family.
--- NOTE | 2025-06-30 11:00 | NUR ---
AM NOTE: THIS RN ASSUMED CARE OF PT AT APPROX 0700. AT START OF SHIFT, PT NOTED TO BE RESTLESS IN BED, PULLING AT LINES AND BLANKETS. OBSERVED TACHYPNEA, DYSPNEA, TACHYCARDIA, DIAPHORESIS. PT REPEATEDLY STATES "HELP ME" & REPORTS FEELING SHORT OF BREATH. THIS RN ASKED PT TO WEAR BIPAP, PT REFUSED. PT A/OX4, STATES SHE WOULD "RATHER " THAN WEAR BIPAP. PT'S SON, OLIVERIO, AT BEDSIDE. PT REPEATEDLY STATES SHE WOULD LIKE TO BE TRANSITIONED TO COMFORT CARE & HAVE FOCUS BE ON PAIN/SYMPTOM MANAGEMENT. CALL PLACED TO DR. VIEIRA. DR. VIEIRA TO BEDSIDE, DISCUSSED OPTIONS AND GOALS OF CARE W/ PT & HER SON. DECISION MADE TO PROCEED WITH COMFORT CARE. PT MEDICATED W/ COMFORT CARE ORDERS PER EMAR. FAMILY MEMBERS AT BEDSIDE, OXYGEN IN PLACE FOR PT COMFORT UNTIL OUT OF TOWN FAMILY MEMBERS ARRIVE.
--- NOTE | 2025-06-30 17:30 | NUR ---
TRANSFER TO 352: PT ON COMFORT CARE, MEDICATED NEEDED FOR PAIN, COMFORT, AND AIR HUNGER PER EMAR. UP TO CHAIR THIS AFTERNOON, FAMILY AT BEDSIDE. PT TRANSFERRED BY THIS RN VIA WHEELCHAIR TO ROOM 352. MEDICATIONS IN LOCK BOX (MORPHINE ER TABS & TYLENOL) FROM HOME WERE TAKEN BY THIS RN TO ROOM 352 & GIVEN TO SUMMER (PT'S [id number]) TO TAKE HOME. MEDICAL RN AWARE.
--- NOTE | 2025-06-30 17:50 | NUR ---
PT TRANSFERRED FROM ICU TO MEDICAL FLOOR. COMFORT CARE STATUS/ORDERS IN PLACE. PT ON 2 L/MIN VIA NC AT BASELINE AND WOULD LIKE TO REMAIN ON O2 FOR COMFORT. SOFT/BITE SIZE DIET STARTED DUE TO PT HAVING NO TEETH - TOLERATING INTAKE WELL. JUAREZ CATHETER PATENT AND DRAINING CLEAR YELLOW URINE. BILATERAL PIV SALINE LOCKED. PT DENIES PAIN. WHEEZING AT BASELINE - MEDICATED PRIOR TO TRANSFER, PT REPORTS RESP RELIEF. WILL REPORT TO ONCOMING NOC SHIFT RN/FOOD PRODUCTS TESTER. PT CURRENTLY EATING PUDDING AND YOGURT WITH DIL AT BEDSIDE.
--- NOTE | 2025-07-01 03:52 | NUR ---
SHIFT SUMMARY/COMFORT CARE NOTE AT HS FAMILY BY THE BEDSIDE. PT A/O X4, ABLE TO MAKE HER NEEDS KNOWN AND COOPERATIVE WITH CARE. BEFORE MIDNIGHT, PT C/O PAIN, AIRHUNGER, O2 RA, TOOK OFF HER NC. NC PUT BACK ON (3L) AND MEDICATED T/O REST OF THIS SHIFT WITH COMFORT CARE MEDICATIONS. PT RESTING W/O ACUTE DISTRESS. REPOSITIONED T/O THIS SHIFT. THIS NURSE CALLED SON OLIVERIO AND UPDATED HIM WITH THE PT'S CONDITION. BED AT THE LOWEST POSITION, CALL LIGHT W/I REACH. CHARGE NURSE NOTIFIED.
--- NOTE | 2025-07-01 16:41 | NUR ---
SHIFT SUMMARY PT REMAINS ON COMFORT CARE. TREATED PER EMAR FOR AIR HUNGER. PT PRIMARILY UNRESPONSIVE, OPENS EYES BRIEFLY TO STIMULI BUT DOES NOT RESPOND VERBALLY. MINIMAL URINE OUTPUT - CATHETER PATENT AND DRAINING MALIA COLORED URINE. CATHETER CARE COMPLETED PER UNIT PROTOCOL. NO ORAL INTAKE. ORAL CARE COMPLETED TOLERATED BY PT. FAMILY AT BEDSIDE THROUGHOUT DAY. PT SON OLIVERIO [facility] IS SELECTION FOR POST MORTEM CARE. PT RESTING PEACEFULLY IN HOSPITAL BED WITH FAMILY AT BEDSIDE. BED IN LOWEST POSITION, CALL LIGHT IN REACH, BED ALARM ON.
--- NOTE | 2025-07-02 04:18 | NUR ---
SHIFT SUMMARY/COMFORT CARE NOTE NO ACUTE EVENTS DURING THIS SHIFT. MEDICATED PER EMAR FOR COMFORT MEASURES. FAMILY BY THE BEDSIDE AT HS. O2 2-3 L VIA NC FOR COMFORT. REPOSITIONED. PT RESTING W/O ACUTE DISTRESS OR PAIN. BED AT THE LOWEST POSITION, CALL LIGHT W/I REACH. PT IS MOSTLY UNRESPONSIVE, OCCASIONALLY OPENS EYES FOR A GOOD EYE CONTACT. BED ALARM FOR SAFETY. BED AT THE LOWEST POSITION, CALL LIGHT W/I REACH. FREQUENT ROUNDING BY THE BEDSIDE.
--- NOTE | 2025-07-02 16:54 | NUR ---
SHIFT SUMMARY MS MCNULTY WAS MORE AWAKE THIS MORNING, TALKING, TAKING SIPS OF WATER AND EATING A FEW BITES. SHE C/O 7/10 LOWER BACK PAIN THIS MORNING AND SHE HAD LABORED RESPIRATIONS. MEDICATED FOR PAIN AND TO EASE HER BREATHING. SHE STOOD AND TRANSFERED INTO THE RECLINER WITH 2 STAFF ASSIST AND SAID SHE FELT MORE COMFORTABLE IN THE CHAIR. SHE WAS VERY SLEEPY THIS AFTERNOON IN THE CHAIR, EYES OPENING TO TOUCH STIMULI ONLY. LIFT WAS USED TO GET HER BACK INTO BED, SHE DID OPEN HER EYES BUT DID NOT SPEAK. VERY SUPPORTIVE FAMILY AT BEDSIDE MOST OF THE SHIFT. BACK IN BED, BED LOW, CALL LIGHT IN REACH, BED ALARM ON.
--- NOTE | 2025-07-03 05:29 | NUR ---
SHIFT SUMMARY PT CONTINUES WITH COMFORT CARE. PT MOSTLY SLEEPING WITH EYES OPENING DURING CARE. PT AWOKE DURING THE NIGHT, ALERT AND ASKING FOR COFFEE. SON, OLIVERIO, CALLED PER HIS REQUEST WHEN PT WOKE UP, AND CAME TO BEDSIDE. PT TALKING A LITTLE TO SON, ASKING FOR COFFEE AND SODA. PT SWALLOWING SAFELY. ENCOURAGED PT TO TAKE SMALL SIPS TO ALLOW TIME FOR BREATHING. ENFORCED WITH SON TO HAVE HOB ELEVATED AND ENCOURAGE SMALL SIPS TO REDUCE THE RISK OF ASPIRATION. PT MEDICATED FOR AIR HUNGER WITH ROXANOL AND ATIVAN PER EMAR. SON LEFT WHEN PT BACK TO SLEEP. PT REPOSITIONED THROUGH THE NIGHT. JUAREZ DRAINING MALIA COLORED URINE. BED ALARM ON, CALL LIGHT WITHIN REACH.
--- NOTE | 2025-07-03 11:34 | NUR ---
RN NOTE MS MCNULTY IS AWAKE, TALKING, TAKING SIPS OF WATER AND A FEW BITES OF BREAKFAST. IN BED THIS AM SHE C/O SOME SOB, TREATED WITH ROXINOL AND SHE REPORTED THAT IT WAS EFFECTIVE. SHE C/O HEADACHE THAT TOOK 2 DOSES OF ROXINOL TO RESOLVE. CEILING LIFT USED TO ASSIST MS MCNULTY TO THE CHAIR. AFTER TRANSFER SHE C/O FEELING SOB LIKE SHE DOES WHENEVER SHE GETS UP AT HOME AND ASKED FOR HER INHALERS. DR KAHN CALLED AND TELEPHONE ORDER FOR INHALERS READ BACK AND ENTERED INTO Platter. HER SON OLIVERIO WAS HERE VISITING THIS MORNING.
[2025-07-03] MEDS ORDERED: Albuterol HFA200 ACT/6.7 GM INH INH PRN (11:35)
[2025-07-03] MEDS ORDERED: Tiotropium Bromide 2.5 MCG/ACT MIST INHAL (10 ACT/4 GM) INH SCH ×2 (12:05→21:00)
--- NOTE | 2025-07-03 14:18 | NUR ---
PALLIATIVE CARE VISIT: CALLED BY PRIMARY RN STATING PT WANTS TO GO HOME. MET WITH PT AT 1400. PT IS AWAKE, ON 3 LPM VIA NC. ABLE TO MAKE INFORMED DECISIONS AT THIS TIME. PT STATES SHE WANTS TO GO HOME. CLARIFIED IF PT WANTS TO GO HOME WITH HOSPICE SERVICES. PT STATED SHE DOES NOT WANT HOSPICE SERVICES, SHE STATES SHE FEELS MUCH BETTER, AND "I DON'T PLAN ON DYING". DISCUSSED BENEFITS OF HOSPICE. ALSO DISCUSSED CONCERNS IF PT RETURNS TO HOSPITAL SHE MAY NEED BIPAP AGAIN. PT CONTINUED TO DECLINE HOSPICE SERVICES. PT GOAL IS TO GET JUAREZ CATHETER TAKEN OUT, START ABX FOR HER UTI INFECTION AND DISCHARGE HOME. SPOKE TO DR. KAHN ABOUT ABOVE CONVERSATION. WILL ORDER LABS AND REVIEW AND DISCUSS WITH PT FURTHER AFTER LABS ARE REVIEWED. UPDATED PRIMARY RN AND LEFT MESSAGE WITH KELSIE.
[2025-07-03 14:21] VITALS: BP 177/96
[2025-07-03 14:34] LABS: BASOPHILS ABSOLUTE AUTO 0.05 K/mm3 (0.00-0.23); BASOPHILS PERCENT AUTO 1 % (0-2); EOSINOPHILS ABSOLUTE AUTO 0.18 K/mm3 (0.00-0.68); EOSINOPHILS PERCENT AUTO 2 % (0-6); Hematocrit 42.8 % (33.0-51.0); Hemoglobin 12.8 g/dL (11.5-16.0); IMMATURE GRAN ABSOLUTE AUTO 0.15 K/mm3 (0.00-0.10); IMMATURE GRAN PERCENT AUTO 1 % (0-1); LYMPHOCYTES ABSOLUTE AUTO 0.89 K/mm3 (0.84-5.20); LYMPHOCYTES PERCENT AUTO 8 % (21-46); MONOCYTES ABSOLUTE AUTO 0.66 K/mm3 (0.16-1.47); MONOCYTES PERCENT AUTO 6 % (4-13); Mean Corpuscular HGB Conc 29.9 g/dL (31.5-36.5); Mean Corpuscular Volume 91 fL (80-100); NEUTROPHILS ABSOLUTE AUTO 8.81 K/mm3 (1.96-9.15); NEUTROPHILS PERCENT AUTO 82 % (41-73); NRBC ABSOLUTE 0.00 K/mm3 (0.00-0.02); NRBC Auto 0.0 /100 WBC (0.0-0.2); Platelet Count 269 K/mm3 (150-400); RDW Coefficient Variation 14.5 % (11.7-14.2); RDW Standard Deviation 48.5 fL (35.1-46.3)
--- NOTE | 2025-07-03 14:50 | NUR ---
RN NOTE MS MCNULTY SAID THAT SHE WANTS TO GO HOME. HER SONS WERE AT THE BEDSIDE AND IN AGREEMENT THAT THEY WANT HER TO GO HOME. JACK PALLIATIVE CARE RN DISCUSSED LEVEL OF CARE AND CARE GOALS WITH MS MCNULTY. MARGARETTE LEAD SLOT TECHNICIAN MET WITH PT. BLOOD PRESURE ELEVATED. HEART RATE ELEVATED. DR DAS CAME TO ASSESS MS MCNULTY AND HE WAS INFORMED OF VITAL SIGNS. BLOOD DRAW DONE. JUAREZ WAS REMOVED AT [address] KAHN TOLD MS MCNULTY THAT IT IS PREFERED THAT SHE CAN VOID BEFORE BEING DISCHARGED HOME. MS MCNULTY IS ABLE TO ANSWER MOST QUESTIONS APPROPRIATELY BUT SHE IS FORGETFUL. POOR SHORT TERM MEMORY AND NEEDED TO BE REMINDED OF WHAT DR KAHN TALKED ABOUT AFTER HE LEFT THE ROOM.
[2025-07-03 15:08] LABS: Alanine Aminotransfer (ALT/SGP 16.0 U/L (12-78); Albumin, Blood 2.6 g/dL (3.4-5.0); Albumin/Globulin Ratio 0.6 (0.8-1.8); Anion Gap 6.0 mmol/L (3-11); Aspartate Aminotrans (AST/SGOT 17.0 U/L (12-37); Bilirubin, Total 0.4 mg/dL (0.1-1.0); Blood Urea Nitrogen 12.0 mg/dL (8-24); CO2, Blood 42.0 mmol/L (21-32); Calcium, Blood 9.1 mg/dL (8.5-10.1); Chloride, Blood 97.0 mmol/L (98-108); Creatinine, Blood 0.45 mg/dL (0.40-1.00); Globulin, Blood 4.1 g/dL (2.2-4.0); Glucose, Blood 233.0 mg/dL (70-99); Potassium, Blood 3.5 mmol/L (3.5-5.5); Sodium, Blood 141.0 mmol/L (136-145); Total Protein, Blood 6.7 g/dL (6.4-8.2)
[2025-07-03] MEDS ORDERED: Acetaminophen650 M1 PO (16:02)
[2025-07-03] MEDS ORDERED: AMOCLA875 PO (16:02)
[2025-07-03] MEDS ORDERED: AZIT500 PO ×2 (16:03→16:04)
[2025-07-03] MEDS ORDERED: HYDHCL25 PO (16:04)
[2025-07-03] MEDS ORDERED: IPRAT-ALBUT 0.5-3 ML INH (16:06)
[2025-07-03] MEDS ORDERED: ASMANEX220 M14 INH (16:07)
[2025-07-03] MEDS ORDERED: ROFL500T PO (16:07)
--- NOTE | 2025-07-03 17:04 | NUR ---
RN NOTE MS MCNULTY IS EAGER TO GO HOME. SON AT BEDSIDE WILLING TO TAKE HER HOME. SHE HAS PORTABLE OXYGEN AT HOME AND FAMILY MEMBER IS BRINGING IT IN. SHE HAS BEEN CONFUSED. MARGARETTE DRY DRUG WORKER ASSESSED HER AND GAVE HER AND HER SON INFORMATION. DR KAHN AWARE OF CONFUSION, PT SAID SHE THOUGHT SHE WAS IN SCHOOL AND I WAS A TEACHER. SON SAID SHE DID NOT HAVE CANE AND WALKER WHEN SHE WAS ADMITTED BUT [facility] DID HAVE UPPER DENTURES. HE SAID THAT SHE VOMITED AND THAT THEY WERE DISCARDED WHEN SHE FIRST ARRIVED IN THE HOSPITAL. HE ALSO SAID THAT SHE HAD SOME MORPHONE PILLS THAT WERE LOCKED UP. I CALLED PHARMACY AND THEY REPORTED THAT THEY DO NOT HAVE ANY OF HER MEDS. I DO NOT SEE A SLIP IN THE CHART. I CALLED ICU, THE APPLICATION CONSULTANT CHECKED THE LOCKED ROOM IN THE ICU ROOM. I NOTIFIED APPLICATION CONSULTANT AND MANAGER COMMUNICATION OF BOTH MEDS AND DENTURES AND OFFERED SON NUMBER TO PATIENT ADVOCATE. SHE HAS NOT VOIDED YET, UP TO COMMODE ONCE WITH NO VOID. JUAREZ WAS REMOVED AT 1450HRS. DR KAHN GAVE T.O. TO PLACE JUAREZ FOR DISCHARGE IF SHE DOES NOT VOID.
--- NOTE | 2025-07-03 17:57 | NUR ---
RN NOTE DISCHARGE INSTRUCTIONS REVIEWED WITH SON DANY. HE VERBALISED UNDERSTANDING OF WRITTEN AND VERBAL DISCHARGE INSTRUCTIONS. HE ALSO SAID THAT A FAMILY MEMBER HAS THE MORPHINE TABLETS, THAT THEY WERE NOT LOCKED UP IN THE HOSPITAL ANYWHERE.
[2025-07-03] MEDS ORDERED: NS 250 ML IV PRN (18:35)
--- NOTE | 2025-07-03 18:36 | NUR ---
SHIFT SUMMARY SEE PRIOR NOTES. SON IS NOW CONCERNED THAT MS MCNULTY IS NOT READY FOR DISCHARGE. MS MCNULTY AGREED WITH HER FAMILY THAT SHE WOULD STAY IN THE HOSPITAL TONIGHT. DR KAHN WAS CONTACTED AND HE AGREED TO HOLD THE DISCHARGE. HE GAVE TELEPHONE ORDER FOR IV AZYTHROMYCIN. IV CEFTRIAXONE AND DUONEB, READ BACK DONE AND ORDERS ENTERED INTO [place]. SHE HAS BEEN UP TO THE BEDSIDE COMMODE TWICE SINCE JUAREZ WAS REMOVED BUT HAS VOIDED VERY LITTLE. BACK IN BED NOW. TWO PERSON TRANSFER TO BSC.
[2025-07-03] MEDS ORDERED: Ipratropium/Albuterol SulF 2.5-0.5MG/3 ML Amp INH SCH (18:55)
--- NOTE | 2025-07-03 19:05 | NUR ---
RN NOTE SON DANY WAS GIVEN THE DISCHARGE PACKET AND SCRIPT FOR [place]. SINCE THE PATIENT AND FAMILY DECIDED NOT TO DISCHARGE HOME SON HAS LEFT WITH THE DISCHARGE PACKET. I LEFT A VOICEMAIL FOR HIM TO PLEASE RETURN THE PACKET AND RETURN THE SCRIPT. NO RETURN CALL YET. BLOCKMASON NOTIFIED.
[2025-07-03 19:36] VITALS: BP 172/100
[2025-07-03] MEDS ORDERED: CefTRIAXone Sodium 1,000 MG in NS 100 ML IV SCH (20:00)
[2025-07-04 04:54] VITALS: BP 131/76
--- NOTE | 2025-07-04 06:14 | NUR ---
SHIFT SUMMARY PT ABLE TO VOID AFTER JUAREZ D/C'D. IV ANTIBIOTICS GIVEN PER ORDER. PT RESTING MOST OF THE NIGHT WITH FAMILY MEMBER AT BEDSIDE. DENIED THE NEED FOR PAIN MEDICATION. PT MAINTAINED ON O2 AT 3L NC WITH SATS WNL. DENIES FEELING SOB. CALL LIGHT WITHIN REACH.
[2025-07-04 07:03] VITALS: BP 136/95
[2025-07-04] MEDS ORDERED: Insulin Regular 100 UNIT/ML 10ML Vial SC SCH (07:30)
[2025-07-04] MEDS ORDERED: Heparin Sodium,Porcine 5,000 UNIT/0.5 ML SDV SC SCH (09:00)
[2025-07-04 09:01] LABS: BASOPHILS ABSOLUTE AUTO 0.03 K/mm3 (0.00-0.23); BASOPHILS PERCENT AUTO 0 % (0-2); EOSINOPHILS ABSOLUTE AUTO 0.16 K/mm3 (0.00-0.68); EOSINOPHILS PERCENT AUTO 2 % (0-6); Hematocrit 46.0 % (33.0-51.0); Hemoglobin 13.4 g/dL (11.5-16.0); IMMATURE GRAN ABSOLUTE AUTO 0.13 K/mm3 (0.00-0.10); IMMATURE GRAN PERCENT AUTO 1 % (0-1); LYMPHOCYTES ABSOLUTE AUTO 1.41 K/mm3 (0.84-5.20); LYMPHOCYTES PERCENT AUTO 16 % (21-46); MONOCYTES ABSOLUTE AUTO 0.49 K/mm3 (0.16-1.47); MONOCYTES PERCENT AUTO 5 % (4-13); Mean Corpuscular HGB Conc 29.1 g/dL (31.5-36.5); Mean Corpuscular Volume 91 fL (80-100); NEUTROPHILS ABSOLUTE AUTO 6.84 K/mm3 (1.96-9.15); NEUTROPHILS PERCENT AUTO 76 % (41-73); NRBC ABSOLUTE 0.00 K/mm3 (0.00-0.02); NRBC Auto 0.0 /100 WBC (0.0-0.2); Platelet Count 276 K/mm3 (150-400); RDW Coefficient Variation 14.3 % (11.7-14.2); RDW Standard Deviation 48.0 fL (35.1-46.3)
[2025-07-04 10:02] LABS: Alanine Aminotransfer (ALT/SGP 16 U/L (12-78); Albumin, Blood 2.7 g/dL (3.4-5.0); Albumin/Globulin Ratio 0.6 (0.8-1.8); Aspartate Aminotrans (AST/SGOT 15 U/L (12-37); Bilirubin, Total 0.4 mg/dL (0.1-1.0); Blood Urea Nitrogen 11 mg/dL (8-24); Calcium, Blood 9.2 mg/dL (8.5-10.1); Chloride, Blood 96 mmol/L (98-108); Creatinine, Blood 0.49 mg/dL (0.40-1.00); Globulin, Blood 4.4 g/dL (2.2-4.0); Glucose, Blood 114 mg/dL (70-99); Potassium, Blood 3.2 mmol/L (3.5-5.5); Sodium, Blood 143 mmol/L (136-145); Total Protein, Blood 7.1 g/dL (6.4-8.2)
[2025-07-04 10:30] LABS: Anion Gap Unable to Calculate mmol/L (3-11); CO2, Blood >45 mmol/L (21-32)
[2025-07-04 12:59] LABS: pH Blood Venous 7.45 (7.34-7.37)
[2025-07-04 15:10] VITALS: BP 137/75
--- NOTE | 2025-07-04 18:41 | NUR ---
SHIFT SUMMARY PT A&OX3, VSS, 3L O2 NC, 2L BASELINE. PT REFUSED BIPAP. 1-2 PERSON ASSIST TO BSC TO URINATE. PT YELLING OUT TO WOOD FUEL PELLETIZER AND RN WHEN NEEDING TO USE BSC, PT EDUCATED CHALK MACHINE OPERATOR LIGHT USE WITH LITTLE UNDERSTANDING. PT FAMILY AT BEDSIDE CONTESTING DC AT THIS TIME. OT RECCOMENDING REHAB, HOWEVER PATIENT REFUSED TO COOPERATE WITH THERAPY, AND AFTERWARD FELL ASLEEP AND ONLY WOKE UP FOR CARES. THIS RN ASKED SON "DANY," ABOUT PAPER PRESCRIPTION THAT WAS PREVIOUSLY BELIEVED TO HAVE GONE HOME WITH HIM, DANY POINTED TO THE DISCHARGE FOLDER ON THE COMFORT CART IN PT ROOM STATING THAT HE NEVER BROUGHT IT HOME. THIS RN FOUND PRESCRIPTION IN FOLDER. CRITICAL LAB VALUE OF pCO2>45 WITH AM CHEMISTRY DRAW, NOTIFIED AND VBG DRAWN, pCO2 OF 69, MD AWARE.
[2025-07-04 19:26] VITALS: BP 117/72
--- NOTE | 2025-07-05 04:36 | NUR ---
SHIFT SUMMARY; PATIENT SLEPT IN LONG INTERVALS, DID NOT TRY TO GET UP. DECLINED NEEDING PAIN MEDS. FAMILY STAYED OVER IN RECLINER.
[2025-07-05 05:34] VITALS: BP 97/51
[2025-07-05 06:36] LABS: BASOPHILS ABSOLUTE AUTO 0.04 K/mm3 (0.00-0.23); BASOPHILS PERCENT AUTO 1 % (0-2); EOSINOPHILS ABSOLUTE AUTO 0.19 K/mm3 (0.00-0.68); EOSINOPHILS PERCENT AUTO 3 % (0-6); Hematocrit 40.2 % (33.0-51.0); Hemoglobin 11.8 g/dL (11.5-16.0); IMMATURE GRAN ABSOLUTE AUTO 0.08 K/mm3 (0.00-0.10); IMMATURE GRAN PERCENT AUTO 1 % (0-1); LYMPHOCYTES ABSOLUTE AUTO 1.72 K/mm3 (0.84-5.20); LYMPHOCYTES PERCENT AUTO 26 % (21-46); MONOCYTES ABSOLUTE AUTO 0.41 K/mm3 (0.16-1.47); MONOCYTES PERCENT AUTO 6 % (4-13); Mean Corpuscular HGB Conc 29.4 g/dL (31.5-36.5); Mean Corpuscular Volume 92 fL (80-100); NEUTROPHILS ABSOLUTE AUTO 4.14 K/mm3 (1.96-9.15); NEUTROPHILS PERCENT AUTO 63 % (41-73); NRBC ABSOLUTE 0.00 K/mm3 (0.00-0.02); NRBC Auto 0.0 /100 WBC (0.0-0.2); Platelet Count 237 K/mm3 (150-400); RDW Coefficient Variation 14.1 % (11.7-14.2); RDW Standard Deviation 47.3 fL (35.1-46.3)
[2025-07-05 07:06] VITALS: BP 100/54
[2025-07-05 07:17] LABS: Alanine Aminotransfer (ALT/SGP 13 U/L (12-78); Albumin, Blood 2.2 g/dL (3.4-5.0); Albumin/Globulin Ratio 0.6 (0.8-1.8); Anion Gap Unable to Calculate mmol/L (3-11); Aspartate Aminotrans (AST/SGOT 13 U/L (12-37); Bilirubin, Total 0.3 mg/dL (0.1-1.0); Blood Urea Nitrogen 12 mg/dL (8-24); Calcium, Blood 9.0 mg/dL (8.5-10.1); Chloride, Blood 95 mmol/L (98-108); Creatinine, Blood 0.52 mg/dL (0.40-1.00); Globulin, Blood 3.6 g/dL (2.2-4.0); Glucose, Blood 95 mg/dL (70-99); Potassium, Blood 3.3 mmol/L (3.5-5.5); Sodium, Blood 142 mmol/L (136-145); Total Protein, Blood 5.8 g/dL (6.4-8.2)
[2025-07-05 07:18] LABS: CO2, Blood >45 mmol/L (21-32)
[2025-07-05 08:03] VITALS: BP 121/81
[2025-07-05 15:00] VITALS: BP 145/98
--- NOTE | 2025-07-05 16:40 | NUR ---
SHIFT SUMMARY PT AOX3, COOPERATIVE, ABLE TO MAKE NEEDS KNOWN. PT HAS BEEN IN BED FOR MUST OF SHIFT, HAS BEEN OOB USING 2 PERSON ASSIST TO CHAIR FOR ABOUT 2 HOURS. 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 ON APPROX 3L O2 CURRENTLY. TOLERATING MEDICATIONS. SUPPOSED TO DC TO [facility] PER CASE MANAGMEENT. BED IN LOWEST POSITION, CALL LIGHT WITHIN REACH.
[2025-07-05 20:31] VITALS: BP 134/87
[2025-07-06] VITALS (7 sets, daily range): BP systolic 143–196; BP diastolic 99–134
[2025-07-06 06:07] LABS: BASOPHILS ABSOLUTE AUTO 0.03 K/mm3 (0.00-0.23); BASOPHILS PERCENT AUTO 0 % (0-2); EOSINOPHILS ABSOLUTE AUTO 0.17 K/mm3 (0.00-0.68); EOSINOPHILS PERCENT AUTO 2 % (0-6); Hematocrit 40.1 % (33.0-51.0); Hemoglobin 12.0 g/dL (11.5-16.0); IMMATURE GRAN ABSOLUTE AUTO 0.05 K/mm3 (0.00-0.10); IMMATURE GRAN PERCENT AUTO 1 % (0-1); LYMPHOCYTES ABSOLUTE AUTO 1.77 K/mm3 (0.84-5.20); LYMPHOCYTES PERCENT AUTO 25 % (21-46); MONOCYTES ABSOLUTE AUTO 0.48 K/mm3 (0.16-1.47); MONOCYTES PERCENT AUTO 7 % (4-13); Mean Corpuscular HGB Conc 29.9 g/dL (31.5-36.5); Mean Corpuscular Volume 89 fL (80-100); NEUTROPHILS ABSOLUTE AUTO 4.52 K/mm3 (1.96-9.15); NEUTROPHILS PERCENT AUTO 65 % (41-73); NRBC ABSOLUTE 0.00 K/mm3 (0.00-0.02); NRBC Auto 0.0 /100 WBC (0.0-0.2); Platelet Count 234 K/mm3 (150-400); RDW Coefficient Variation 13.7 % (11.7-14.2); RDW Standard Deviation 44.4 fL (35.1-46.3)
--- NOTE | 2025-07-06 06:19 | NUR ---
SUMMARY NOC SHIFT PT ADMITTED FOR UTI . PT IS ALERT AND ORIENTED TO 2-3. PT IS ON 3L O2 WITH 2L O2 BASE LINE. . PT TAKES MEDICATION WHOLE WITH WATER. PT AT THIS TIME HAS PURE DIET. PT IS COOPERATIVE WITH CARE AND ABLE TO MAKE NEEDS KNOWN TO STAFF. PT HAS DAUGHTER AT BEDSIDE. PT WAS ON COMFORT CARE BUT CHANGED BACK PER PT AND FAMILY REQUEST TO BE TREATED. PT IS TWO PERSON TRANSFER TO BEDSIDE COMMODE. BED IS IN LOW POSITION, RAILS TIMES TWO, AND CALL LIGHT IS WITHIN REACH.
[2025-07-06 07:16] LABS: Alanine Aminotransfer (ALT/SGP 14 U/L (12-78); Albumin, Blood 2.3 g/dL (3.4-5.0); Albumin/Globulin Ratio 0.6 (0.8-1.8); Aspartate Aminotrans (AST/SGOT 15 U/L (12-37); Bilirubin, Total 0.4 mg/dL (0.1-1.0); Blood Urea Nitrogen 8 mg/dL (8-24); Calcium, Blood 8.7 mg/dL (8.5-10.1); Chloride, Blood 94 mmol/L (98-108); Creatinine, Blood 0.43 mg/dL (0.40-1.00); Globulin, Blood 3.6 g/dL (2.2-4.0); Glucose, Blood 85 mg/dL (70-99); Potassium, Blood 3.0 mmol/L (3.5-5.5); Sodium, Blood 140 mmol/L (136-145); Total Protein, Blood 5.9 g/dL (6.4-8.2)
[2025-07-06 07:17] LABS: Anion Gap Unable to Calculate mmol/L (3-11); CO2, Blood >45 mmol/L (21-32)
[2025-07-06] MEDS ORDERED: HydrALAZINE HCl 20 MG / ML 1ML Vial IV ONE (08:15)
[2025-07-06] MEDS ORDERED: Metoprolol Tartrate 1 MG/ML 5 ML VIAL IV ONE ×3 (09:20→23:20)
[2025-07-06] MEDS ORDERED: Albuterol 2.5 MG/3 ML VIAL INH PRN (10:45)
--- NOTE | 2025-07-06 11:15 | NUR ---
GOALS OF CARE CONVERSATION ATTEMPTED WITH PT AND SON DANY THIS MORNING. PRIMARY RN REPORTS PT WAS DISPLAYING SIGNS OF INCREASED CONFUSION. PRIMARY RN INITIATED PLACING PT ON BI-PAP. PT IS CLAUSTROPHOBIC AND HAS DIFFICULTY WITH LEAVING THE BI-PAP MASK IN PLACE. JOINT VISIT WITH CARE MANAGEMENT. PT'S SON DANY WAS AT BEDSIDE WHEN ATTEMPTING TO DETERMINE IF CARE SHOULD BE ESCALATED AND TRANSFER PT TO THE PCU. DANY INSISTED THIS PC RN AND CM RETURN IN 30 MINUTES. WAS ABLE TO CONFIRM PT DOES NOT WANT TO BE INTUBATED. PC TO FOLLOW UP LATER TODAY PER FAMILY REQUEST.
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
[2025-07-06] MEDS ORDERED: Potassium Chl 20MEQ/Water100ML 100 ML IV STA (14:50)
--- NOTE | 2025-07-06 16:06 | NUR ---
SHIFT SUMMARY PT AOX3/4, COOPERATIVE, SEMI ABLE TO MAKE NEEDS KOWN. PT IS 1 PERSON ASSIST TO COMMODE FOR VOIDING. THIS AM, PT DID HAVE EPISODE OF HTN AND TACHYCARDIA, MEDICATED PER EMAR WITH IV HYDRALAZINE. VITALS DID NOT STABILIZE, MD NOTIFIED AND IV METOPROLOL ORDERED WITH TELE. PT DID RESPOND TO MEDICATION STABILIZING SBP UNDER 160 AND HR BELOW 120. BIPAP INITIATED FOR ELEVATED CO2, PT VIATLS SEEM TO STABILIZE DURING BIPAP THERAPY. APPROX 1500, PT TOLERANCE FOR BIPAP DECREASED, MEDICATING PER EMAR, WILL REATTEMP MASK WHEN APPROPRIATE. RT SUPPOSED TO BRING HOME "NOSE MASK" TO ASSESS IF PT WILL TOLERATE BETTER. PT KEEPS PLAYING WITH LINES. BED IN LOWEST POSITION, CALL LIGHT WITHIN REHACH.
--- NOTE | 2025-07-06 18:15 | NUR ---
PT NOT TOLERATING BIPAP AT THIS TIME, THOUGH WAS ABLE TO TOLERATE FOR APPROX 40 MINS EARLIER TODAY.
[2025-07-06 19:01] LABS: pH Blood Venous 7.53 (7.34-7.37)
[2025-07-06 21:23] LABS: pH Blood Venous 7.51 (7.34-7.37)
--- NOTE | 2025-07-06 21:42 | NUR ---
CRITICAL LAB RECIEVED FROM [facility] Lab results read back to environmental education specialist. pH 7.51 Pc02 53, BiCarb 40. PER TOOL LAPPER HAND- ORDER [facility] FOR AM LABS, MONITOR PT, OTHERWISE PT CAN WEAR BI-PAP IF DESIRED BUT DOES NOT HAVE TO.
[2025-07-07] VITALS (10 sets, daily range): BP systolic 101–177; BP diastolic 74–158
[2025-07-07] MEDS ORDERED: Metoprolol Tartrate 1 MG/ML 5 ML VIAL IV ONE (02:45)
[2025-07-07 05:56] LABS: pH Blood Venous 7.46 (7.34-7.37)
[2025-07-07 06:14] LABS: BASOPHILS ABSOLUTE AUTO 0.05 K/mm3 (0.00-0.23); BASOPHILS PERCENT AUTO 0 % (0-2); EOSINOPHILS ABSOLUTE AUTO 0.02 K/mm3 (0.00-0.68); EOSINOPHILS PERCENT AUTO 0 % (0-6); Hematocrit 48.4 % (33.0-51.0); Hemoglobin 15.3 g/dL (11.5-16.0); IMMATURE GRAN ABSOLUTE AUTO 0.07 K/mm3 (0.00-0.10); IMMATURE GRAN PERCENT AUTO 1 % (0-1); LYMPHOCYTES ABSOLUTE AUTO 1.82 K/mm3 (0.84-5.20); LYMPHOCYTES PERCENT AUTO 13 % (21-46); MONOCYTES ABSOLUTE AUTO 0.70 K/mm3 (0.16-1.47); MONOCYTES PERCENT AUTO 5 % (4-13); Mean Corpuscular HGB Conc 31.6 g/dL (31.5-36.5); Mean Corpuscular Volume 85 fL (80-100); NEUTROPHILS ABSOLUTE AUTO 11.85 K/mm3 (1.96-9.15); NEUTROPHILS PERCENT AUTO 82 % (41-73); NRBC ABSOLUTE 0.00 K/mm3 (0.00-0.02); NRBC Auto 0.0 /100 WBC (0.0-0.2); Platelet Count 453 K/mm3 (150-400); RDW Coefficient Variation 14.0 % (11.7-14.2); RDW Standard Deviation 42.5 fL (35.1-46.3)
[2025-07-07 06:52] LABS: Alanine Aminotransfer (ALT/SGP 21.0 U/L (12-78); Albumin, Blood 3.4 g/dL (3.4-5.0); Albumin/Globulin Ratio 0.7 (0.8-1.8); Anion Gap 10.0 mmol/L (3-11); Aspartate Aminotrans (AST/SGOT 26.0 U/L (12-37); Bilirubin, Total 0.7 mg/dL (0.1-1.0); Blood Urea Nitrogen 10.0 mg/dL (8-24); CO2, Blood 38.0 mmol/L (21-32); Calcium, Blood 10.4 mg/dL (8.5-10.1); Chloride, Blood 89.0 mmol/L (98-108); Creatinine, Blood 0.47 mg/dL (0.40-1.00); Globulin, Blood 5.1 g/dL (2.2-4.0); Glucose, Blood 157.0 mg/dL (70-99); Potassium, Blood 3.4 mmol/L (3.5-5.5); Sodium, Blood 134.0 mmol/L (136-145); Total Protein, Blood 8.5 g/dL (6.4-8.2)
[2025-07-07 08:21] LABS: Alanine Aminotransfer (ALT/SGP 22.0 U/L (12-78); Albumin, Blood 3.4 g/dL (3.4-5.0); Albumin/Globulin Ratio 0.7 (0.8-1.8); Anion Gap 9.0 mmol/L (3-11); Aspartate Aminotrans (AST/SGOT 25.0 U/L (12-37); Bilirubin, Total 0.6 mg/dL (0.1-1.0); Blood Urea Nitrogen 12.0 mg/dL (8-24); CO2, Blood 37.0 mmol/L (21-32); Calcium, Blood 10.1 mg/dL (8.5-10.1); Chloride, Blood 90.0 mmol/L (98-108); Creatinine, Blood 0.46 mg/dL (0.40-1.00); Globulin, Blood 4.8 g/dL (2.2-4.0); Glucose, Blood 196.0 mg/dL (70-99); Potassium, Blood 3.4 mmol/L (3.5-5.5); Sodium, Blood 133.0 mmol/L (136-145); Total Protein, Blood 8.2 g/dL (6.4-8.2)
[2025-07-07] MEDS ORDERED: Metoprolol Tartrate 1 MG/ML 5 ML VIAL IV PRN (09:15)
--- NOTE | 2025-07-07 18:46 | NUR ---
SHIFT SUMMARY PT IS A/OX3, CONFUSION TO PLACE. UP TO [facility]SC WITH 1-2 PERSON ASSIST. HR ELEVATED THROUGHOUT THIS SHIFT. PER BOATS RENTER, HR SUSTAINING 110-120'S WITH FREQUENT SMALL RUNS IN THE 140-160'S. PHYSICAN AWARE. IV METOPROLOL GIVEN X2 THIS SHIFT PER DEC. PT REMAIN ASYMTOMATIC. BP STABLE. PT IS PLEASANT AND COOPERATIVE WITH CARE AND CALLS APPROPRIATELY.
[2025-07-08 03:07] VITALS: BP 120/88
--- NOTE | 2025-07-08 04:27 | NUR ---
SHIFT SUMMARY 74 YR F ADMITTED ON 06/26/25. DNR. NO ACUTE CHANGES THIS SHIFT. PRN METOPROLOL WAS GIVEN ONCE THIS SHIFT FOR ELEVATED HR THAT TOUCHED 166 BRIEFLY, BUT WAS HANGING IN THE 130-140'S. PT DENIES CHEST PAIN OR PRESSURE AND IS ASYMPTOMATIC. BED IS IN LOW POSITION AND CALL LIGHT IN REACH.
[2025-07-08 06:25] LABS: BASOPHILS ABSOLUTE AUTO 0.04 K/mm3 (0.00-0.23); BASOPHILS PERCENT AUTO 1 % (0-2); EOSINOPHILS ABSOLUTE AUTO 0.15 K/mm3 (0.00-0.68); EOSINOPHILS PERCENT AUTO 2 % (0-6); Hematocrit 41.3 % (33.0-51.0); Hemoglobin 13.0 g/dL (11.5-16.0); IMMATURE GRAN ABSOLUTE AUTO 0.06 K/mm3 (0.00-0.10); IMMATURE GRAN PERCENT AUTO 1 % (0-1); LYMPHOCYTES ABSOLUTE AUTO 2.46 K/mm3 (0.84-5.20); LYMPHOCYTES PERCENT AUTO 29 % (21-46); MONOCYTES ABSOLUTE AUTO 0.82 K/mm3 (0.16-1.47); MONOCYTES PERCENT AUTO 10 % (4-13); Mean Corpuscular HGB Conc 31.5 g/dL (31.5-36.5); Mean Corpuscular Volume 86 fL (80-100); NEUTROPHILS ABSOLUTE AUTO 5.09 K/mm3 (1.96-9.15); NEUTROPHILS PERCENT AUTO 59 % (41-73); NRBC ABSOLUTE 0.00 K/mm3 (0.00-0.02); NRBC Auto 0.0 /100 WBC (0.0-0.2); Platelet Count 298 K/mm3 (150-400); RDW Coefficient Variation 14.5 % (11.7-14.2); RDW Standard Deviation 44.7 fL (35.1-46.3)
[2025-07-08 06:56] LABS: Alanine Aminotransfer (ALT/SGP 16.0 U/L (12-78); Albumin, Blood 2.7 g/dL (3.4-5.0); Albumin/Globulin Ratio 0.7 (0.8-1.8); Anion Gap 6.0 mmol/L (3-11); Aspartate Aminotrans (AST/SGOT 9.0 U/L (12-37); Bilirubin, Total 0.5 mg/dL (0.1-1.0); Blood Urea Nitrogen 21.0 mg/dL (8-24); CO2, Blood 42.0 mmol/L (21-32); Calcium, Blood 9.5 mg/dL (8.5-10.1); Chloride, Blood 91.0 mmol/L (98-108); Creatinine, Blood 0.85 mg/dL (0.40-1.00); Globulin, Blood 3.7 g/dL (2.2-4.0); Glucose, Blood 111.0 mg/dL (70-99); Potassium, Blood 3.2 mmol/L (3.5-5.5); Sodium, Blood 136.0 mmol/L (136-145); Total Protein, Blood 6.4 g/dL (6.4-8.2)
[2025-07-08 07:40] VITALS: BP 126/73
[2025-07-08 11:44] LABS: pH Blood Venous 7.54 (7.34-7.37)
[2025-07-08 15:35] VITALS: BP 105/63
[2025-07-08 17:25] LABS: pH Blood Venous 7.37 (7.34-7.37)
[2025-07-08 19:36] VITALS: BP 116/72
--- NOTE | 2025-07-08 19:41 | NUR ---
SHIFT SUMMARY PT IS A/OX4. UP WITH 1 PERSON ASSIST TO CHAIR. NO ACUTE CHANGES THROUGHOUT THIS SHIFT. PER MANAGER CREATIVE, HR RANGING FROM 80-110'S WITH OCCASIONAL BEATS UP TO THE 140'S, NOT SUSTAINING. PHYSICAN AWARE. POOR APPETITE. ON 3L NC, SATS >90% ON CONT PULSE OX. PT IS PLEASANT AND COOPERATIVE WITH CARE AND CALLS APPROPRIATELY USING THE CALL LIGHT.
[2025-07-09] VITALS (7 sets, daily range): BP systolic 101–142; BP diastolic 55–100
--- NOTE | 2025-07-09 04:49 | NUR ---
SHIFT SUMMARY 74 YR F ADMITTED ON 06/26/25. DNR. NO ACUTE CHANGES THIS SHIFT. PT REFUSES TO WEAR CPAP AND O2 SATS DROP TO MID 80'S WHEN SHE SLEEPS (WHICH ISN'T MUCH). O2 BY NC WAS INCREASED TO 7L/MIN TO MAINSATS SATS >90. PT IS VERY CONFUSED WHEN SHE FIRST WAKES UP AND NEEDS A FEW MINUTES TO GET HER BEARINGS. NO ADVERSE CALLS FROM LARD BLEACHER AND HR WAS NS @ 67 THIS A.M. BED IS IN LOW POSITION WITH ALARM ON AND CALL LIGHT IN REACH.
[2025-07-09 05:20] LABS: BASOPHILS ABSOLUTE AUTO 0.05 K/mm3 (0.00-0.23); BASOPHILS PERCENT AUTO 1 % (0-2); EOSINOPHILS ABSOLUTE AUTO 0.24 K/mm3 (0.00-0.68); EOSINOPHILS PERCENT AUTO 3 % (0-6); Hematocrit 36.3 % (33.0-51.0); Hemoglobin 11.4 g/dL (11.5-16.0); IMMATURE GRAN ABSOLUTE AUTO 0.04 K/mm3 (0.00-0.10); IMMATURE GRAN PERCENT AUTO 1 % (0-1); LYMPHOCYTES ABSOLUTE AUTO 2.21 K/mm3 (0.84-5.20); LYMPHOCYTES PERCENT AUTO 31 % (21-46); MONOCYTES ABSOLUTE AUTO 0.49 K/mm3 (0.16-1.47); MONOCYTES PERCENT AUTO 7 % (4-13); Mean Corpuscular HGB Conc 31.4 g/dL (31.5-36.5); Mean Corpuscular Volume 84 fL (80-100); NEUTROPHILS ABSOLUTE AUTO 4.07 K/mm3 (1.96-9.15); NEUTROPHILS PERCENT AUTO 57 % (41-73); NRBC ABSOLUTE 0.00 K/mm3 (0.00-0.02); NRBC Auto 0.0 /100 WBC (0.0-0.2); Platelet Count 282 K/mm3 (150-400); RDW Coefficient Variation 14.6 % (11.7-14.2); RDW Standard Deviation 44.8 fL (35.1-46.3)
[2025-07-09 05:52] LABS: Alanine Aminotransfer (ALT/SGP 17.0 U/L (12-78); Albumin, Blood 2.7 g/dL (3.4-5.0); Albumin/Globulin Ratio 0.8 (0.8-1.8); Anion Gap 2.0 mmol/L (3-11); Aspartate Aminotrans (AST/SGOT 18.0 U/L (12-37); Bilirubin, Total 0.3 mg/dL (0.1-1.0); Blood Urea Nitrogen 27.0 mg/dL (8-24); CO2, Blood 43.0 mmol/L (21-32); Calcium, Blood 9.3 mg/dL (8.5-10.1); Chloride, Blood 90.0 mmol/L (98-108); Creatinine, Blood 0.84 mg/dL (0.40-1.00); Globulin, Blood 3.2 g/dL (2.2-4.0); Glucose, Blood 99.0 mg/dL (70-99); Potassium, Blood 3.0 mmol/L (3.5-5.5); Sodium, Blood 132.0 mmol/L (136-145); Total Protein, Blood 5.9 g/dL (6.4-8.2)
--- NOTE | 2025-07-09 17:29 | NUR ---
SHIFT SUMMARY- SPOKE TO THE PT TODAY AND EXPLAINED THAT THE PT CAN NOT GO HOME WITHOUT THE BIPAP SHE WILL WIND UP BACK HERE RIGHT AWAY. PT ACKNOWLEDGED UNDERSTANDING OF THIS AND TOLD THE DOCTOR SHE WILL WEAR IT. ON LEADER ROUNDING THE PT CONVEYED TO THE ROUNDING LEADER THAT SHE WILL NOT BE WEARING THE BIPAP AT ALL AND CONVEYED HER IRRITATION WITH THE DOCTOR ASKING HER TO WEAR IT. SPOKE TO PALLIATIVE CARE, WHO CALLED THE PT FAMILY, IF THE PT DOES NOT USE THE BIPAP SHE WILL CONTINUE TO DECLINE, COMFORT MEASURES WOULD BE MORE APPROPRIATE. THEY ARE AWARE AND ARE GOING TO HAVE A FAMILY MEMBER STAY THE NIGHT TO HELP THE PT ACCEPT THE MASK.
[2025-07-10 03:33] VITALS: BP 103/71
--- NOTE | 2025-07-10 04:06 | NUR ---
SHIFT SUMMARY: PT REFUSED TO WEAR BIPAP. ATTEMPTED TO PUT BIPAP MASK ON PT AND PT KEPT TAKING MASK OFF. PT WAS EDUCATED ON THE IMPORTANCE OF LEAVING THE MASK ON. MASK WAS TAKEN OFF AND NASAL CANULA PLACED BACK ON PT. PT HAD FAMILY AT BEDSIDE THE FIRST PART OF SHIFT. FAMILY BROUGHT PT IN FOOD. PT IS ON 3L NC. PT SLEPT MOST OF THE NIGHT, NO ACUTE CHANGES.
[2025-07-10 06:29] LABS: BASOPHILS ABSOLUTE AUTO 0.06 K/mm3 (0.00-0.23); BASOPHILS PERCENT AUTO 1 % (0-2); EOSINOPHILS ABSOLUTE AUTO 0.23 K/mm3 (0.00-0.68); EOSINOPHILS PERCENT AUTO 3 % (0-6); Hematocrit 40.0 % (33.0-51.0); Hemoglobin 12.4 g/dL (11.5-16.0); IMMATURE GRAN ABSOLUTE AUTO 0.03 K/mm3 (0.00-0.10); IMMATURE GRAN PERCENT AUTO 0 % (0-1); LYMPHOCYTES ABSOLUTE AUTO 1.68 K/mm3 (0.84-5.20); LYMPHOCYTES PERCENT AUTO 20 % (21-46); MONOCYTES ABSOLUTE AUTO 0.74 K/mm3 (0.16-1.47); MONOCYTES PERCENT AUTO 9 % (4-13); Mean Corpuscular HGB Conc 31.0 g/dL (31.5-36.5); Mean Corpuscular Volume 88 fL (80-100); NEUTROPHILS ABSOLUTE AUTO 5.71 K/mm3 (1.96-9.15); NEUTROPHILS PERCENT AUTO 68 % (41-73); NRBC ABSOLUTE 0.00 K/mm3 (0.00-0.02); NRBC Auto 0.0 /100 WBC (0.0-0.2); Platelet Count 233 K/mm3 (150-400); RDW Coefficient Variation 14.9 % (11.7-14.2); RDW Standard Deviation 47.3 fL (35.1-46.3)
[2025-07-10 07:11] LABS: Anion Gap 6.0 mmol/L (3-11); Blood Urea Nitrogen 19.0 mg/dL (8-24); CO2, Blood 37.0 mmol/L (21-32); Calcium, Blood 9.6 mg/dL (8.5-10.1); Chloride, Blood 98.0 mmol/L (98-108); Creatinine, Blood 0.66 mg/dL (0.40-1.00); Glucose, Blood 98.0 mg/dL (70-99); Potassium, Blood 4.6 mmol/L (3.5-5.5); Sodium, Blood 136.0 mmol/L (136-145)
[2025-07-10 07:55] VITALS: BP 125/80
[2025-07-10 09:54] VITALS: BP 109/81
[2025-07-10 11:45] VITALS: BP 121/81
--- NOTE | 2025-07-10 14:37 | NUR ---
DISCHARGE NOTE- PT DISCHARGED TO [facility]. IV AND TELE DC'D PRIOR TO PT DISCHARGE. PT TAKEN VIA WC TRANSPORT WITH O2 TANK. ON 3L O2 AT THE TIME OF DISCHARGE. REPORT CALLED TO [facility] AFTER PT TRANSPORT. NEW POLST FORM IN THE PACKET FOR THE PT.
== END 2025-07-10 14:40 | DRG 871 ==
LOC: ER 20:33 → PCU 20:34 → ICUE 20:34 → PCU 06-26 01:19 → ICUE 06-26 07:58 → MEDS 06-26 23:03 → ICUE 06-26 23:03 → MEDS 06-30 17:10 → ENPENDDIS 07-03 18:45 → MEDS 07-06 22:29
PROVIDERS: Emergency Medicine; Family Medicine; Internal Medicine; Nurse Practitioner Acute Care; Student in an Organized Health Care Education/Training Program; ADMIT Student in an Organized Health Care Education/Training Program
PROC: 3E03329 Introduction of Other Anti-infective into Peripheral Vein, Percutaneous Approach (ICD-10-PCS; principal; 2025-06-26)
PROC: 3E033XZ Introduction of Vasopressor into Peripheral Vein, Percutaneous Approach (ICD-10-PCS; 2025-06-26)
PROC: 5A09357 Assistance with Respiratory Ventilation, Less than 24 Consecutive Hours, Continuous Positive Airway Pressure (ICD-10-PCS; 2025-06-27)
DX: A41.51 Sepsis due to Escherichia coli [E. coli] (principal); G92.8 Other toxic encephalopathy; J18.9 Pneumonia, unspecified organism; R65.21 Severe sepsis with septic shock; Z66 Do not resuscitate; Z99.81 Dependence on supplemental oxygen; J96.21 Acute and chronic respiratory failure with hypoxia; J96.22 Acute and chronic respiratory failure with hypercapnia; N39.0 Urinary tract infection, site not specified; E87.1 Hypo-osmolality and hyponatremia; J44.0 Chronic obstructive pulmonary disease with (acute) lower respiratory infection; J44.1 Chronic obstructive pulmonary disease with (acute) exacerbation; I13.0 Hypertensive heart and chronic kidney disease with heart failure and stage 1 through stage 4 chronic kidney disease, or unspecified chronic kidney disease; E87.3 Alkalosis; N17.9 Acute kidney failure, unspecified; N18.31 Chronic kidney disease, stage 3a; E11.22 Type 2 diabetes mellitus with diabetic chronic kidney disease; D63.1 Anemia in chronic kidney disease; K31.89 Other diseases of stomach and duodenum; E11.65 Type 2 diabetes mellitus with hyperglycemia; I50.9 Heart failure, unspecified; K29.80 Duodenitis without bleeding; G89.4 Chronic pain syndrome; E87.6 Hypokalemia; I25.10 Atherosclerotic heart disease of native coronary artery without angina pectoris; E78.5 Hyperlipidemia, unspecified; M10.9 Gout, unspecified; Z98.890 Other specified postprocedural states; Z98.51 Tubal ligation status; Z87.891 Personal history of nicotine dependence; Z91.038 Other insect allergy status; Z79.899 Other long term (current) drug therapy; Z79.51 Long term (current) use of inhaled steroids
CPT/HCPCS: 36415; 36416; 51702; 51798; 71045; 73502; 74177; 80048; 80053; 81001; 82140; 82803; 82947; 83036; 83605; 83735; 85025; 87040; 87077; 87086; 87186; 93005; 93010; 93306; 94640; 94660; 94664; 94760; 94762; 96365; 96366; 96372; 96375; 96376; 97110; 97112; 97162; 97164; 97165; 97168; 97530; 97535; 99285-25; A9270; G0378; J0360; J0456; J0696; J1644; J1815; J2060; J2270; J2405; J2470; J2765; J2919; J3010; J3480; J7030; J7050; J7120; Q9967